=== PATIENT | male | born 1980 | race Caucasian/White ===

== ENCOUNTER → 2019-05-08 08:43 | Outpatient (CLI) | payer BC, SELFPAY ==
[2017-07-01 04:05] VITALS: BMI 25.0
[2019-05-08 10:11] LABS: Hematocrit 42.7 % (40-54); Hemoglobin 14.2 g/dL (13.0-16.5); Mean Corp Hgb Conc 33.3 g/dL (32-36); Mean Corpuscular Hgb 30.7 pg (27.0-32.0); Mean Corpuscular Volume 92.4 fL (80-94); Mean Platelet Vol. 11.4 fl (6.2-12.0); Platelet Count 241 K/mm3 (150-450); RBC Distribution Width CV 12.4 % (11.6-14.6); RBC Distribution Width SD 41.9 fl (35.1-43.9); Red Blood Count 4.62 M/mm3 (4.6-6.2); White Blood Count 4.5 K/mm3 (4.4-11.0)
[2019-05-08 10:34] LABS: ALB/GLOB Ratio 1.2 RATIO (0.9-2.4); AST(SGOT) 13 U/L (15-37); Alanine Aminotransfer ALT/SGPT 28 U/L (16-61); Albumin, Serum 3.9 g/dL (3.2-5.0); Alkaline Phosphatase 68 U/L (45-117); Anion Gap 8 (5-15); BUN 19 mg/dL (7-18); BUN/Creat Ratio 19.3 RATIO (10-20); Calcium,Total 9.4 mg/dL (8.5-10.1); Chloride 103 mmol/L (98-107); Creatinine, Serum 0.98 mg/dL (0.70-1.30); EST Glomerular Filtration Rate 90 mL/min (>60); Est Glom Filt Rate - Afr Amer 108 mL/min (>60); Globulin 3.3 g/dL (2.2-4.2); Glucose 308 mg/dL (74-106); Potassium 4.1 mmol/L (3.5-5.1); Protein, Total 7.2 g/dL (6.4-8.2); Sodium Level 140 mmol/L (136-145); Thyroid Stim Hormone (TSH) 2.05 uIU/mL (0.358-3.74)
== END ==
PROVIDERS: Family Provider Nurse Practitioner; PCP Nurse Practitioner
DX: R19.4 Change in bowel habit (principal)
CPT/HCPCS: 36415; 80053; 84443; 85027

== ENCOUNTER → 2020-02-12 | Outpatient (CLI) | payer BC, SELFPAY ==
--- NOTE | 2020-02-12 08:47 | BI_ITS ---
MAMMOGRAPHY - BILATERAL DIAGNOSTIC REASON FOR EXAM: Male, 39 years old. Painful retroareolar lump in the left breast. PERTINENT HISTORY: Non-contributory. TECHNIQUE: Digital bilateral breast emily (3D mammographic acquisition) in the CC and MLO projections. 2-D mediolateral oblique (MLO) and craniocaudad (CC) views of both breasts were obtained. CAD: Full Field Digital Mammography with Computer Added Detection was performed. COMPARISON: None. Baseline examination. FINDINGS: Breast Composition: Small amount of fibroglandular tissue is seen in the retroareolar region slightly more prominent on the left side. There are no dominant masses or suspicious calcifications. No other significant abnormalities are identified. BI/DIAG MAMM W/CAD, BILAT IMPRESSION: Negative diagnostic mammogram. With the patient''s history of the left painful breast lump, correlation with ultrasound of the retroareolar region is recommended. ASSESSMENT CATEGORY: BIRADS Category 0: Incomplete. Need additional imaging evaluation. A letter regarding these results will be sent to the patient by the facility within 30 days. Approximately 10% of breast cancers are not detected by mammography. A normal mammogram should not delay biopsy of a clinically suspicious abnormality. Electronically Signed: Kenn Leija, at 10:05 EDT , Service support ,
--- NOTE | 2020-02-12 08:47 | US_ITS ---
STUDY: ULTRASOUND BREAST - LEFT REASON FOR EXAM: Male, 39 years old. Palpable lump left breast. TECHNIQUE: Axial and longitudinal images of the LEFT breast were performed with a high resolution ultrasound transducer. # OF IMAGES: 26 COMPARISON: Comparison is made with prior mammogram done earlier in the day. FINDINGS: LEFT Breast: There is evidence of a 9 mm x 12 mm x 6 mm hypoechoic slightly irregular nodular density in the retroareolar region of the left breast. A biopsy is recommended for further evaluation. US/Breast Limited Unilateral IMPRESSION: 9 mm x 12 mm x 6 mm hypoechoic slightly irregular nodule in the retroareolar region of the left breast. Correlation with biopsy is recommended. ASSESSMENT CATEGORY: BIRADS Category 4: Suspicious - Biopsy Should Be Considered. A letter regarding these results will be sent to the patient by the facility within 30 days. Electronically Signed: Kenn Leija, at 10:43 EDT , Service support ,
== END | disposition home or self-care (01) ==
LOC: OPBI 08:44
PROVIDERS: PCP Nurse Practitioner; Referring Provider Internal Medicine; Visit Provider Internal Medicine
DX: N63.20 Unspecified lump in the left breast, unspecified quadrant (principal)
CPT/HCPCS: 76642; 77062; 77066; G0279

== ENCOUNTER → 2020-02-19 | Outpatient (CLI) | payer BC, SELFPAY ==
[2020-02-19 12:26] VITALS: BMI 25.0
--- NOTE | 2020-02-19 12:30 | BRBX_PTH ---
PATIENT: OMAR NAVA LOC: [facility] U#:[id number] AGE/SX: 39/M ROOM: RE02/19/[address]: Dr. Damaso Ward MD : 1980 BED: DIS: 02/19/2020 SPEC #: [id number] RECD: 02/19/20 13:48 STATUS: JASSON LM #: [id number] MICHELE: 02/19/20 12:[address]: Damaso Ward DEPT: SURGICAL PATHOLOGY RECD BY: Maria G Tenorio ENTERED: 02/22/20 09:01 SP TYPE: BREAST BX OTHR DR: HARJIT Plaza Tissues: Left breast, NOS Procedures: Surgery Specimen Level IV HEADER OPERATION: Left breast biopsy PRE-OP DIAGNOSIS: Abnormal left breast ultrasound TISSUE SUBMITTED: Left breast tissue MICROSCOPIC DIAGNOSIS Left breast, core biopsy: Consistent with gynecomastia. AM:skylar 02/23/20 MICROSCOPIC DESCRIPTION Slides are reviewed. GROSS DESCRIPTION Received in fixative is one container labeled with the patient name and designated left breast. The specimen consists of multiple elongated fragments of ash-yellow fibroadipose tissue that in aggregate measure 2 x 0.2 x 0.1 cm. The entire specimen is submitted in one cassette. / SJ:rg 02/22/20 TC:5 CPT: 71754
== END | disposition home or self-care (01) ==
LOC: LABSPEC 14:00
PROVIDERS: PCP Nurse Practitioner; Referring Provider Surgery; Visit Provider Surgery
DX: R92.8 Other abnormal and inconclusive findings on diagnostic imaging of breast (principal)
CPT/HCPCS: 88305

== ENCOUNTER 2020-04-29 13:37 | Emergency (ER) | payer BC, SELFPAY ==
[2020-02-19 12:26] VITALS: BMI 25.0
[2020-04-29 13:38] VITALS: BP 108/67; PULSE 59; RESP 18; TEMP 37; O2SAT 100; BMI 24.4
--- NOTE | 2020-04-29 14:00 | EKG12_ITS ---
Test Reason : Blood Pressure : / mmHG Vent. Rate : 058 BPM Atrial Rate : 058 BPM P-R Int : 156 ms QRS Dur : 098 ms QT Int : 408 ms P-R-T Axes : 047 055 051 degrees QTc Int : 400 ms Sinus bradycardia with sinus arrhythmia Otherwise normal ECG Confirmed by SALUD PERRY, CORRINE ([id number]), metropolitan editor LAURA FROST ([id number]) on 05/03/2020 9:20:54 AM Referred By: STEPHANIE Confirmed By:CORRINE BRANNON MD
--- NOTE | 2020-04-29 14:01 | CT_ITS ---
STUDY: CT BRAIN WITHOUT CONTRAST REASON FOR EXAM: Male, 39 years old. HEADACHE with rt eye blurred vision. Elevated blood sugar. Type 1 diabetic RADIATION DOSAGE (If Supplied By Facility): CTDIvol = ( 60.81 ) mGy, DLP = ( 1067.08 ) mGycm TECHNIQUE: Transaxial CT imaging of the brain was performed without administration of intravenous contrast material. Individualized dose optimization techniques were used for this CT. COMPARISON: No relevant priors. FINDINGS: Normal soft tissue structures. Normal calvarium. Normal size ventricles and extra-axial spaces for the patient''s age. Normal white matter tracts of the cerebral hemispheres. Normal basal ganglia and thalami. Normal brainstem. Normal cerebellum. There is no intracranial hemorrhage. There are no findings of an acute ischemic infarction. Normal visualized paranasal sinuses. CT/Brain/Head without Contrast IMPRESSION: Normal unenhanced CT scan of the brain. Electronically Signed: Kenn Leija, at 14:36 EDT , Service support ,
--- NOTE | 2020-04-29 14:11 | NURSING ---
NO OLD EKGS
--- NOTE | 2020-04-29 14:17 | ED.VIS.GEN ---
History of Present Illness Chief Complaint: Eye Problem Informant: Patient Narrative: Patient is a 39-year-old male who presents to the emerge department for right eye blurred vision and right-sided headache. This been present over the past 2 days. He states it feels like his vision is bouncing. Left eye does not seem affected. He has had similar episode before in the past. He is concerned that his diabetes is messing with his vision. He denies any recent headaches but does have a very distant history of migraines before in the past. Denies any neck stiffness or pain. He has not had any fevers or chills. Denies any loss of vision. Bright lights do make his symptoms worse. Currently states his pain is around a 5 out of 10. It does occasionally get up to an 8 out of 10. He has been nauseous and had a few episodes of dry heaving. He woke up this morning and his blood sugar was in the 400s but states they have been well controlled lately. He has been in DKA before in the past and does not feel like he is in this now. Denies any abdominal pain. No change in bowel habits. No urinary symptoms. He denies any history of stroke. Not on any anticoagulation. No history of head trauma. No painful eye movements. No foreign body sensation in the eye. Eye has not been red or having any discharge. Past Medical History - Allergies and Home Meds Allergies/Adverse Reactions: Allergies No Known Allergies Allergy (Verified 04/29/20 13:40) Primary Care Physician: Kanu Jamil MD [STAFF PHYSICIAN] - As soon as possible Vianca Olvera NP-C [Primary Care Provider] - 1 Day for another exam Prior records reviewed: Yes Past Medical History: - - Diabetes Surgical History: noncontributory Smoking Status: Former smoker Alcohol: None Drugs: None Review of Systems General: Denies: Chills, Fever, Sweats Eyes: Reports: Blurred vision - right. Denies: Visual changes - left, Blurred vision - left ENT: Denies: Bilateral ear pain, Rhinorrhea, Sore throat Cardiovascular: Denies: Chest pain, Palpitations, Heart racing Respiratory: Denies: Dyspnea, Cough, Dyspnea on exertion Gastrointestinal: Reports: Nausea. Denies: Abdominal pain, Vomiting, Diarrhea Genitourinary: Denies: Dysuria, Hematuria, Frequency Musculoskeletal: Denies: Back pain, Extremity Pain Skin: Denies: Rash, Wounds Neurological: Reports: Headache. Denies: Weakness, Parasthesia, Numbness Physical Exam Vital Signs/Narrative: Vital Signs Temp Pulse Resp BP Pulse Ox 04/29/20 13:38 98.6 F 59 L 18 108/67 100 Inital Vital Signs reviewed: Yes General: Well nourished, Well developed, No Acute Distress Head: Normocephalic, Atraumatic Eyes: Perrl, EOMI, - - Eyes not injected. No painful eye movements with full range of motion. No discharge present. No surrounding cellulitis. ENT: Moist mucous membranes, No rhinorrhea Neck: Supple, Nontender Cardiovascular: Regular rate, Regular rhythm, No murmurs Respiratory: No distress, CTA bilaterally, Chest nontender Abdomen: Soft, Nontender, Nondistended, Normal bowel sounds Back: Nontender, Normal Inspection Extremities: Nontender, No edema Skin: Normal color, No rash Neurological: Alert, Oriented x3, Cranial nerves II-XII grossly intact, Normal Strength, Normal Sensation. Negative for: Left side facial droop, Right side facial droop Psychological: Normal affect, Normal Mood Diagnostic/Tx/Re-eval - Medical Decision Making Patient presents the emerge department for right eye blurred vision and right-sided headache. Will check basic lab work as he said his blood sugar has been elevated this morning. Will do CT scan of the head to evaluate for any evidence of bleed. Will treat with Toradol, Reglan and Benadryl in case this is a migraine. Visual acuity is 20/20 in bilateral eyes. Patient's lab work-up showed a mild hyperglycemia. Otherwise no significant abnormality. CT scan of the head did not show any acute intracranial findings. After migraine cocktail. Patient states he is feeling much better. He does feel comfortable going home at this time. I do recommend he follow-up with his PCP as well as an clinical appeals specialist. We will make a referral for 1. If he develops any worsening symptoms or any vision changes he is to return to the emergency department immediately. He understands and is agreeable with this plan. ED Disposition - Plan for ED Patient: Disposition: Home or Assisted Living Diagnosis: Headache, Blurred vision Instructions: Migraines and Cluster Headaches, ED Blurred Vision Referrals: Ciesa,Vianca, [employer] [employer] [Primary Care Provider] - 1 Day for another exam Kanu Jamil MD [STAFF PHYSICIAN] - As soon as possible
[2020-04-29 14:23] LABS: Absolute Lymphocyte Count 1.27 X10^3/uL (0.83-4.51); Absolute Neutrophil Count 4.7 X10^3/uL (2.0-7.7); Basophil# 0.03 X10^3/uL; Basophil% 0.5 % (0-1); Eosinophil# 0.05 X10^3/uL; Eosinophils% 0.8 % (0-5); Hematocrit 43.6 % (40-54); Hemoglobin 14.7 g/dL (13.0-16.5); Lymphocyte # 1.27 X10^3/ul (4.0); Lymphocyte % 19.6 % (19-41); Mean Corp Hgb Conc 33.7 g/dL (32-36); Mean Corpuscular Hgb 31.3 pg (27.0-32.0); Mean Corpuscular Volume 92.8 fL (80-94); Mean Platelet Vol. 11.5 fl (6.2-12.0); Monocyte# 0.42 X10^3/uL; Monocyte% 6.5 % (0-10); NRBC Flagged by Analyzer 0 % (0-5); Neutrophil % 72.3 % (47-70); Platelet Count 243 K/mm3 (150-450); RBC Distribution Width CV 11.8 % (11.6-14.6); RBC Distribution Width SD 40.6 fl (35.1-43.9); White Blood Count 6.5 K/mm3 (4.4-11.0)
[2020-04-29 14:38] LABS: Anion Gap 7 (5-15); BUN 16 mg/dL (7-18); BUN/Creat Ratio 17.7 RATIO (10-20); Calcium,Total 9.5 mg/dL (8.5-10.1); Chloride 106 mmol/L (98-107); EST Glomerular Filtration Rate 98 mL/min (>60); Est Glom Filt Rate - Afr Amer 119 mL/min (>60); Estimated Creatinine Clearance 118.56 ml/min; Glucose 209 mg/dL (74-106); Potassium 3.6 mmol/L (3.5-5.1); Sodium Level 140 mmol/L (136-145)
[2020-04-29] MEDS: 0.9% Normal Saline 1,000 ML 999 ML IV (14:38)
[2020-04-29] MEDS: Ketorolac 30 MG/ML Syringe IV (15:07)
[2020-04-29] MEDS: Metoclopramide 10 MG/2 ML Vial 5 MG IV (15:08)
[2020-04-29] MEDS: DiphenhydrAMINE 50 MG/ML Syringe 25 MG IV (15:08)
[2020-04-29 16:45] VITALS: BP 108/66; PULSE 77; RESP 14
== END 2020-04-29 16:46 | disposition home or self-care (01) ==
PROVIDERS: Emergency Provider Emergency Medicine; PCP Nurse Practitioner
DX: G43.909 Migraine, unspecified, not intractable, without status migrainosus (principal); H53.8 Other visual disturbances; E11.9 Type 2 diabetes mellitus without complications; Z87.891 Personal history of nicotine dependence; Z79.4 Long term (current) use of insulin
CPT/HCPCS: 70450; 80048; 84484; 85025; 93005; 96361; 96374; 96375; 99284; J7030; A4216

== ENCOUNTER 2020-05-01 20:40 | Emergency (ER) | payer BC, SELFPAY ==
[2020-05-01 20:41] VITALS: BP 129/90; PULSE 75; RESP 15; TEMP 37.2; O2SAT 99; BMI 23.0
--- NOTE | 2020-05-01 21:28 | ED.DCSUM_ITS ---
History of Present Illness Chief Complaint: Nausea/Vomiting Informant: Patient Onset: Yesterday Context: Gradual Timing: Continuous Quality: Similar Prior Headaches Location: right frontal-retroorbital Current Severity: Moderate Maximum Severity: Moderate Worsened by: opening R eye Relieved by: nothing Associated Symptoms: Nausea, Vomiting, Photophobia, - - diplopia when opening R eye Injury: - - no trauma/injury/fall Narrative: Patient presents saying I have a diabetic complication of my right eye. He states he was told this by a specialist one time when he had this before. In the past when he had the symptoms, his blood sugar was very high. He states his eye symptoms started 4-5 days ago, and has resolved, he said to himself I need to pay attention to my blood sugars which he states he admittedly was not doing prior to that for some time, he is a type I diabetic. The day after that, the headache started. He has had some vomiting. He was seen here in the ER and had a work-up including a CT of the head that was negative. He states as a result of treatment, his headache resolved for the day, and he came back yesterday. Last night and all day today, he has been vomiting to the point of feeling dehydrated. He states he has no eye pain proper, but he has headache that feels like it is in his eye socket behind his eye. He has some photophobia. He denies any neurologic symptoms in his periphery, or problems walking but when his right eyes open he is dizzy/vertiginous, which keeps making him feel worse. Therefore, he has been keeping his right eye closed purposefully because it makes him less symptomatic but he has still been vomiting all day and states my parents would give me anything to drink because they think I have coronavirus so he states he came here mainly because of the vomiting, and wanting to try to get it to quit. He states he has an appointment with an eye doctor concerning his right eye. Again, he states this is happened in the past, it resolves spontaneously when his sugar gets under control, he states it has been in the 1- 200s range lately since he has been checking it. When asked if he had an MRI ever, he states he did remotely and cannot remember when or under what context. There is no record of one here. - Past Medical History (1) DM (diabetes mellitus) Status: Chronic Comment: type 1 (2) Peptic ulcer Status: Chronic Past Medical History - Allergies and Home Meds Allergies/Adverse Reactions: Allergies No Known Allergies Allergy (Verified 05/01/20 20:43) Primary Care Physician: Fabiano Hammond MD [STAFF PHYSICIAN] - As soon as possible (call for appt) Surgical History: noncontributory Lives: With Family Smoking Status: Never smoker Review of Systems General: Denies: Chills, Fever, Sweats Eyes: Reports: Diplopia, - - Photophobia. Right retro-orbital headache.. Denies: Visual changes - bilaterally ENT: Denies: Bilateral ear pain, Rhinorrhea, Sore throat Cardiovascular: Denies: Chest pain, Palpitations Respiratory: Denies: Dyspnea, Cough, Sputum, Dyspnea on exertion, Orthopnea Gastrointestinal: Reports: Nausea, Vomiting. Denies: Abdominal pain, Diarrhea, Melena, Hematochezia Genitourinary: Denies: Dysuria, Hematuria, Frequency Musculoskeletal: Denies: Myalgias, Arthralgias, Neck pain, Back pain, Swelling, Extremity Pain Skin: Denies: Rash, Wounds Neurological: Reports: Headache. Denies: Weakness, Numbness Physical Exam Vital Signs/Narrative: Vital Signs Temp Pulse Resp BP Pulse Ox 05/01/20 20:41 98.9 F 75 15 129/90 H 99 Inital Vital Signs reviewed: Yes General: Well nourished, Well developed, - - Well-appearing, no acute distress. Patient has conversation with his hands behind his head. Head: NC, AT Eyes: Perrl, EOMI - But when looking straight, patient appears to have a disconjugate gaze with the abnormal eye appearing to be the right one., - - Normal conjunctivae. No pain with extraocular movements. No endophthalmos, proptosis, or ptosis. No periorbital swelling or cellulitis. ENT: Moist mucous membranes, No rhinorrhea, TM's clear Neck: Supple, No Lymphadenopathy, Nontender, No Meningismus Cardiovascular: Regular rate, Regular rhythm, No murmurs Respiratory: No distress, CTA bilaterally, Chest nontender Abdomen: Soft, Nontender, Nondistended, Normal bowel sounds Back: Nontender, Normal Inspection Extremities: Nontender, No edema Skin: Normal color, No rash Neuro: Alert, Oriented x3, Cranial nerves II-XII grossly intact, Normal Strength, Normal Sensation, Normal DTR, Normal Gait, - - Normal [id number] and [id number] bilaterally. Psychological: Normal affect, Normal Mood Diagnostic/Tx/Re-eval Laboratory Results 05/01/20 21:41 POC Glucose 254 H - Medical Decision Making Blood sugar in the mid 200s, he was treated with IV fluids, Reglan. On reevaluation his headache and nausea are much better and he is tolerating oral fluids and is asking to leave. I reviewed his work-up from 2 days ago, he had a negative head CT and other than mild hyperglycemia his metabolic work-up was unremarkable. He still has a disconjugate gaze and states he DOES NOT usually have a lazy eye. I discussed concern with him for possible neurologic component here rather than ophthalmologic. He expressed concern as well, but does not want to stay anymore. I wanted to obtain a stat neurology consult regarding this for further evaluation. He does not want to stay for that. I gave him the option of following up with neurology as an outpatient, and he does want to do that, and will keep his appointment with ophthalmology which I think is also reasonable. His visual acuity is fine now. Given a prescription for Phenergan tablets to use as needed at home in the meantime. ED Disposition - Plan for ED Patient: Disposition: Home or Assisted Living Diagnosis: Hyperglycemia due to type 1 diabetes mellitus, Dysconjugate gaze, Migraine headache, Vomiting Instructions: ED Diabetic Hyperglycemia, ED, Migraine (Classical) Prescriptions: proMETHazine tablet [Phenergan tablet] 25 mg PO Q6H PRN PRN #12 tab PRN Reason: Nausea/Vomiting Prescription Printed Referrals: Fabiano Hammond MD [STAFF PHYSICIAN] - As soon as possible (call for appt)
[2020-05-01] MEDS: 0.9% Normal Saline 1,000 ML 999 ML IV (21:43)
[2020-05-01] MEDS: Metoclopramide 10 MG/2 ML Vial IV (21:44)
[2020-05-01 22:01] LABS: Bedside Glucose 254 mg/dL (70-110)
[2020-05-01 23:05] VITALS: BP 107/66; PULSE 83; RESP 16; O2SAT 97
== END 2020-05-01 23:06 | disposition home or self-care (01) ==
PROVIDERS: Emergency Provider Emergency Medicine; PCP Nurse Practitioner
DX: G43.909 Migraine, unspecified, not intractable, without status migrainosus (principal); H53.001 Unspecified amblyopia, right eye; E10.65 Type 1 diabetes mellitus with hyperglycemia
CPT/HCPCS: 82962; 96361; 96374; 99285; J7030; A4216

== ENCOUNTER 2020-05-02 08:57 | Inpatient (IN) | payer BC, SELFPAY ==
[2020-05-01 20:41] VITALS: BMI 23.0
[2020-05-02] VITALS (17 sets, daily range): BP systolic 86–136; BP diastolic 59–83; PULSE 79–109; RESP 15–23; TEMP 36.4–37.2; O2SAT 98–100; BMI 24.4; BMI 21.9
--- NOTE | 2020-05-02 09:08 | CT_ITS ---
STUDY: CTA HEAD AND NECK WITH CONTRAST REASON FOR EXAM: Male, 39 years old. PT STATED N/V, RT EYE DROOP, UNABLE TO TRACK LEFT OF MIDLINE PER ORDERING PHYSI RADIATION DOSAGE (If Supplied By Facility): CTDIvol = ( 28.03 ) mGy, DLP = ( 1536.32 ) mGycm TECHNIQUE: CT angiography was performed with a multi-detector CT scanner. Data acquisition was obtained from the skull base through the vertex following intravenous administration of 100ML ISOVUE 370. MIP images were reconstructed from the axial data set. Post-processing of the angiographic images was performed, with multiplanar reformation and 3D reconstruction. Individualized dose optimization techniques were used for this CT. COMPARISON: No relevant priors. FINDINGS: Normal bilateral petrous carotid arteries. Normal right cavernous carotid artery with a normal supraclinoid bifurcation. Normal left cavernous carotid artery with a normal supraclinoid bifurcation. Normal right A1 segments of the anterior cerebral artery. Normal left A1 segments of the anterior cerebral artery. Normal intact anterior communicating artery (ACOM). Normal bilateral A2 segments of the anterior cerebral arteries. Normal right M1 and M2 segments of the middle cerebral arteries, with a normal M1 bifurcation. Normal left M1 and M2 segments of the middle cerebral arteries, with a normal M1 bifurcation. Normal right posterior communicating artery (PCOM). Normal left posterior communicating artery (PCOM). Normal bilateral vertebral arteries. Normal basilar artery with a normal basilar bifurcation. The visualized bilateral superior cerebellar (SCA) arteries are normal. Normal bilateral P1, P2 and visualized P3 segments of the posterior cerebral arteries. There is no demonstrated aneurysm of the [place]. There is no demonstrated abnormality of the visualized brain. AORTIC ARCH: Normal visualized aortic arch. Normal origins of the brachiocephalic, left common carotid, and left subclavian arteries. RIGHT CAROTID ARTERIES: Normal right common carotid artery (CCA). Normal right common carotid bulb. Normal origin of the right internal carotid (ICA) artery without a hemodynamically significant stenosis. Normal visualized cervical portion of the right internal carotid artery. Normal origin of the right external carotid artery (ECA). LEFT CAROTID ARTERIES: Normal left common carotid artery (CCA). Normal left common carotid bulb. Normal origin of the left internal carotid (ICA) artery without a hemodynamically significant stenosis. Normal visualized cervical portion of the left internal carotid artery. Normal origin of the left external carotid artery (ECA). VERTEBRAL ARTERIES: Normal bilateral vertebral arteries. CT/CTA Head AND Neck W/ Contrast IMPRESSION: Normal CTA Head and neck with contrast. Electronically Signed: Pop Boyle MD at 9:53 EDT , Service support ,
--- NOTE | 2020-05-02 09:08 | EKG12_ITS ---
Test Reason : NAUSEA Blood Pressure : / mmHG Vent. Rate : 092 BPM Atrial Rate : 092 BPM P-R Int : 152 ms QRS Dur : 078 ms QT Int : 368 ms P-R-T Axes : 074 062 062 degrees QTc Int : 455 ms Normal sinus rhythm Normal ECG Confirmed by SALUD PERRY, CORRINE ([id number]), department editor LAURA FROST ([id number]) on 05/04/2020 9:07:26 AM Referred By: RAHEEL Confirmed By:CORRINE BRANNON MD
--- NOTE | 2020-05-02 09:11 | ED.DCSUM_ITS ---
History of Present Illness Chief Complaint: Nausea/Vomiting Informant: Patient Onset: Days Context: Gradual Onset Timing: Continuous Current Severity: Moderate Maximum Severity: Moderate Narrative: The patient is a 39-year-old male with history of insulin-dependent diabetes that presents with nausea and vomiting. The patient was initially seen here about 3 days ago. At that point, he had blurry vision. He underwent noncontrast head CT which was negative. He came back again last night because he was having headache with nausea and vomiting. Patient was given migraine abortive medications. He was found to have disconjugate gaze. They did want to bring the patient in for admission, but he states that he would rather follow-up as an outpatient. He states when he got home, he felt that he was having a reaction to the medication. He states that he felt very restless and anxious. He had multiple further episodes of vomiting. He states he feels like his vision is now worse. He denies any head trauma. He denies any focal weakness. Prior similar symptoms: Yes Recent Illness/Hospitalization: No Past Medical History - Allergies and Home Meds Allergies/Adverse Reactions: Allergies No Known Allergies Allergy (Verified 05/02/20 09:02) Prior records reviewed: Yes Past Medical History: - - Insulin-dependent diabetes Surgical History: noncontributory Smoking Status: Never smoker - Family History Maternal Family History: Family History (Last Updated 02/19/20 @ 12:24 by Amisha Gupta) Father Cancer Family History: Reports: No pertinent history Paternal Family History: Family History (Last Updated 02/19/20 @ 12:24 by Amisha Gupta) Father Cancer Family History: Reports: Heart Disease Review of Systems General: Denies: Chills, Fever, Sweats Eyes: Reports: Blurred vision - right, Diplopia. Denies: Visual changes - bilaterally ENT: Denies: Rhinorrhea, Sore throat Cardiovascular: Denies: Chest pain, Palpitations Respiratory: Denies: Dyspnea, Cough, Dyspnea on exertion Gastrointestinal: Reports: Nausea, Vomiting. Denies: Abdominal pain, Diarrhea, Melena, Hematochezia Genitourinary: Denies: Dysuria, Hematuria, Frequency Musculoskeletal: Denies: Back pain, Extremity Pain Skin: Denies: Rash, Wounds Neurological: Reports: Headache. Denies: Weakness, Numbness Physical Exam Vital Signs/Narrative: Vital Signs Temp Pulse Resp BP Pulse Ox 05/02/20 08:59 97.6 F L 102 H 18 129/74 H 98 Inital Vital Signs reviewed: Yes General: Well nourished, Well developed, No Acute Distress Head: Normocephalic, Atraumatic Eyes: Perrl, - - The right eye does have ptosis. It will also not fully cross the midline. He does complain of double vision. ENT: Moist mucous membranes, No rhinorrhea Neck: Supple, Nontender Cardiovascular: Regular rate, Regular rhythm, No murmurs Respiratory: No distress, CTA bilaterally, Chest nontender Abdomen: Soft, Nontender, Nondistended, Normal bowel sounds Back: Nontender, Normal Inspection Extremities: Nontender, No edema Skin: Normal color, No rash Neurological: Alert, Oriented x3, Cranial nerves II-XII grossly intact, Normal Strength, Normal Sensation Psychological: Normal affect, Normal Mood Diagnostic/Tx/Re-eval Clinical Impression(s) from Imaging Studies Head/Neck CTA 05/02/20 09:08 IMPRESSION: Normal CTA Head and neck with contrast. Electronically Signed: Pop Boyle MD at 9:53 EDT , Service support , - Medical Decision Making The patient has ptosis of the right eye. He is unable to completely abduct the right eye. He is also complaining of nausea and vomiting. I had concern for Tika syndrome versus posterior stroke. The patient underwent CTA of the head and neck. There is no evidence of dissection or acute occlusion. As the patient has had worsening symptoms since his initial vision on the , I do feel that admission for MRI would be appropriate as he has obvious neuro findings. The patient was discussed with the hospitalist. Lab work returned. The patient does appear to be in DKA. He has a decreased bicarb, elevated anion gap, and hyperglycemia. He will be started on insulin dr ip and admitted to the ICU. Impression 1. Nausea and vomiting 2. Right eye ptosis 2. DKA ED Disposition - Plan for ED Patient:
[2020-05-02] MEDS: Ondansetron 4 MG/2 ML Vial IV ×2 (09:18→17:03)
[2020-05-02] MEDS: 0.9% Normal Saline 1,000 ML 1000 ML IV (09:18)
--- NOTE | 2020-05-02 10:19 | ED.RN ---
PT WAS BROUGHT INTO THE ER ROOM AFTER BEING TRIAGED WITH FATHER ALONG SIDE. PT AMBULATED TO THE BED. FATHER WAS INFORMED THAT HE COULD HAVE A SEAT IN THE CHAIR AND THE DR/NURSE WOULD BE IN. FATHER REQUESTED A HIPPA FORM. I INFORMED HIM THE PT WOULD RECEIVE THAT WITH HIS REGISTRATION AND THAT WAS DONE UPON EVERY VISIT. FATHER THEN ASKED WHEN THAT WOULD HAPPEN. EXPLAINED IT HAPPENS AFTER THE DR SEES THE PT. FATHER STATED HE WAS SUPPOSED TO GET IT NOW SO HIM AND HIS COULD HAVE ACCESS TO HIS SONS INFORMATION. I ATTEMPTED TO SAY THAT HIS SON COULD GIVE VERBAL CONSENT BUT THE FATHER QUICKLY IN INTERRUPTED AND STATED HE NEEDED THE HIPPA FORM AND PHYSICALLY STEPPED MULTIPLE STEPS TOWARDS ME. MAN WAS ASKED TO STEP BACK AND NOT COME AT ME. AGAIN TRIED TO EXPLAIN THE CONSENT PROCESS BUT HE REMAIN ANGRY AND VERBALLY ARGUING. PT STATED HE COULD BE EJECTED IF NEED BE. I EXPLAIN IF HE CONTINUED TO BE AGGRESSIVE THAN HE WOULD NEED TO LEAVE BUT IF HE COULD HAVE A CONVERSATION HE COULD STAY. HE REFUSED TO CALM DOWN AND CONTINUED TO ARGUE AND HAVE A RAISED VOICE. FATHER WAS THEN TOLD HE COULD LEAVE. SECURITY WAS CALLED AND FATHER AMBULATED FROM ED. PATIENT ADVOCATE AND WEED CUTTER ALSO NOTIFIED OF SITUATION.
[2020-05-02 10:33] LABS: Absolute Lymphocyte Count 0.57 X10^3/uL (0.83-4.51); Absolute Neutrophil Count 21.2 X10^3/uL (2.0-7.7); Basophil# 0.04 X10^3/uL; Basophil% 0.2 % (0-1); Hematocrit 43.6 % (40-54); Hemoglobin 14.5 g/dL (13.0-16.5); Lymphocyte # 0.57 X10^3/ul (4.0); Lymphocyte % 2.4 % (19-41); Mean Corp Hgb Conc 33.3 g/dL (32-36); Mean Corpuscular Hgb 31.7 pg (27.0-32.0); Mean Corpuscular Volume 95.4 fL (80-94); Mean Platelet Vol. 11.6 fl (6.2-12.0); Monocyte# 1.48 X10^3/uL; Monocyte% 6.3 % (0-10); NRBC Flagged by Analyzer 0 % (0-5); Neutrophil # 21.24 X10^3/uL (2.7-7.7); Neutrophil % 90.5 % (47-70); POSITIVE DIFFERENTIAL YES; POSITIVE MORPHOLOGY YES; Platelet Count 324 K/mm3 (150-450); RBC Distribution Width CV 11.8 % (11.6-14.6); RBC Distribution Width SD 40.8 fl (35.1-43.9); Red Blood Count 4.57 M/mm3 (4.6-6.2); White Blood Count 23.5 K/mm3 (4.4-11.0)
--- NOTE | 2020-05-02 10:34 | ED.RN ---
FRIEND OF PT'S MOTHER CALLED INQUIRING ABOUT HOW TO OBTAIN CONSENT TO BE NOTIFIED OF PT'S INFORMATION. EXPLAINED THE VERBAL CONSENT PROCESS AND HOW CONSENT OF INFO RELEASE FORM WORKED. IT WAS DECIDED THAT THE VERBAL CONSENT WAS APPROPRIATE FOR THIS SITUATION. MOTHER WAS AGREEABLE TO THIS. AFTER THIS PHONE CALL ENDED THE PATIENT ADVOCATE APPROACHED THE NURSES STATION AND INFORMED THAT HE WAS WORKING WITH THE FATHER STILL AND DID OBTAIN VERBAL CONSENT FROM THE SON.
[2020-05-02 10:41] LABS: Differential Indicated SCAN CRITERIA MET
--- NOTE | 2020-05-02 10:46 | HP.PCM_ITS ---
Problem List (1) DM (diabetes mellitus) Status: Chronic Comment: type 1 (2) Peptic ulcer Status: Chronic History of Present Illness Date of Admission: 05/02/20 Chief Complaint: Nausea, vomiting, headache, blurred vision. The patient is a 39 year old M with past medical history as mentioned above presented to the emergency room because of nausea, vomiting, headache and blurred vision. Patient symptoms started 3 days ago with nausea and vomiting, has been intermittent for the last 3 days, associated with headache as well as blurred vision on the right side. He mentioned that all of the symptoms came and most at the same time. He has been having this blurred vision since Saturday, it is on looking by the right eye, distorted picture, no diplopia, associated with headache and without aggravating or relieving factors. The headache is on the right parietal region, dull aching headache, sometimes throbbing and associated with nausea and vomiting and without aggravating or relieving factors. Patient came to the emergency department on April 29, 2020. He had CT scan brain done without contrast and showed no acute findings. Routine blood work was unremarkable. He was discharged home. He came back last night because of persistent nausea and vomiting as well as headache and blurred vision. He was found to have disconjugate gaze and treated as a case of migraine headache and he was discharged home. This morning, patient came back because of nausea and vomiting again as well as headache and blurry vision on the right eye. In the emergency department, he was afebrile, heart rate has been around 100, blood pressure stable, pulse ox is 98% on room air. His routine blood work was remarkable for significant leukocytosis, potassium 5.5, BUN of 22 and creatinine of 1.21. Blood glucose was 429. Serum bicarb was 12 and anion gap was 21. Lactic acid was 3.8. LFT was unremarkable. His EKG revealed normal sinus rhythm, normal [place] interval, normal QRS, normal QTC, no acute segment changes. CTA of the head and neck done today and showed no evidence of hemodynamically significant vascular disease or stenosis. CT scan brain that was done on April 29, 2020 reviewed and showed no evidence of acute infarct or hemorrhage. Patient is being admitted for DKA, dehydration, hyperkalemia, lactic acidosis and headache/blurry vision on the right eye as well as disconjugate gaze on the right. Past Medical History Past Medical History (Chronic Problems): Chronic Problems (Last Updated 05/02/20 @ 10:[address] Abisai Montoya MD) Mass of left breast (Chronic) DM (diabetes mellitus) (Chronic) type 1 Peptic ulcer (Chronic) Medical History: Medical History (Last Updated 05/02/20 @ 10:[address] Abisai Montoya MD) Mass of left breast (Chronic) N63.20 Breast mass N63.0 Diabetes insipidus E23.2 Allergies No Known Allergies Allergy (Verified 05/02/20 09:02) Home Medications: Ambulatory Orders Medication Instructions Recorded Insulin Glargine [Lantus SoloStar 20 units SUBCUT DAILY 09/13/13 Pen] Insulin Lispro [Humalog] unit SQ TID 09/13/13 proMETHazine tablet [Phenergan 25 mg PO Q6H PRN PRN #12 tab 05/01/20 tablet] Surgical History: Surgical History (Last Updated 02/19/20 @ 12:24 by Amisha Gupta) History of colonoscopy Onset Date: ~05/2019 Z98.890 History of hernia repair Onset Date: ~2007 Z98.890, Z87.19 History of tonsillectomy Onset Date: ~1984 Z90.89 Surgical History: herniorrhaphy, tonsillectomy Psychiatric History: No pertinent psych hx Lives: With Family Smoking Status: Never smoker Alcohol: Occasional Drugs: None - *Family History Maternal Family History: Family History (Last Updated 02/19/20 @ 12:24 by Amisha Gupta) Father Cancer History Items: No pertinent history Paternal Family History: Family History (Last Updated 02/19/20 @ 12:24 by Amisha Gupta) Father Cancer History Items: Heart Disease Review of Systems Constitutional: Reports: Anorexia. Denies: Chills, Fever, Weakness Eyes: Reports: Blurred vision, Vision Change. Denies: Double vision, Drainage, Redness HEENT: Reports: Head Aches. Denies: Difficulty Hearing, Ear Pain, Eye Pain, Nasal Congestion, Sore Throat Cardiovascular: Denies: Chest Pain, Chest Pressure, Chest Tightness, Heaviness, Light Headedness, Palpitations, Syncope Respiratory: Denies: Cough, Pleuritic Pain, Shortness of Breath, Sputum production, Wheezing Gastrointestinal: Reports: Nausea, Vomiting. Denies: Abdominal Pain, Cons tipation, Diarrhea Genitourinary: Denies: Dysuria, Frequency, Hematuria Musculoskeletal: Denies: Arm Pain, Back Pain, Foot Pain Skin: Denies: Dryness, Rash Neurological: Reports: Blurred vision, Headaches. Denies: Balance problems, Double vision, Change in Speech, Slurred speech, Confusion, Incoordination, Numbness Psychiatric: Denies: Anxiety, Depression Endocrine: Denies: Change in Body Habitus, Polydipsia, Polyuria VTE Information - Inpt Only VTE Present on Admission: No VTE Mechan Device Prophylaxis: None VTE Pharm Prophylaxis ordered?: Yes Patient Problems: Active and Suspected Problems (Last Updated 05/02/20 @ 10:[address] Abisai Montoya MD) Lactic acidosis (Acute) Hyperkalemia (Acute) DKA (diabetic ketoacidoses) (Acute) - Physical Exam Vitals/I&O's: Vital Signs Temp Pulse Resp BP Pulse Ox 97.6 F L 102 H 18 129/74 H 98 05/02/20 08:59 05/02/20 08:59 05/02/20 08:59 05/02/20 08:59 05/02/20 08:59 Oxygen Delivery Method Room Air Weight: 180 lb Body Mass Index (BMI) 24.4 Finger Stick Blood Glucose 254 Intake and Output for Last 24 Hours 04/30/20 05/01/20 05/02/20 23:59 23:59 23:59 Intake Total 1000 / 1000 Balance 1000 / 1000 General: Alert, Oriented x3, Cooperative, No apparent distress HEENT: Atraumatic, PERRLA, Normocephalic, - - Right eyelid does not cross the midline looking to the left side. Oral: Moist Mucosa, No Gingival or Mucosal Lesions/ Ulcerations Neck: Supple, No JVD, Negative Carotid Bruits, No Nuchal Rigidity Lungs: Clear to auscultation, Normal air movement, No rhonchi, No wheeze, No rales Cardiovascular: Regular rate, Regular Rhythm, Normal S1, Normal S2, PMI Normal, Tachycardic Abdomen: Bowel Sounds Present, Soft, Non Tender, Non-Distended, No Hepato- splenomegaly Extremities: No clubbing, No cyanosis, No edema Skin: No rashes, No breakdown Lymphatic: No Cervical, Supraclavicular, or Inguinal Adenopathy Neurological: Motor Exam 5/5 strength throughout, - - Right eye ptosis, disconjugate gaze on the right eye. Psych/Mental Status: Normal Affect, Appropriate, Alert and oriented to time, place, person, mood and affect Laboratory Results 05/02/20 10:20: WBC 23.5 H, RBC 4.57 L, Hgb 14.5, Hct 43.6, MCV 95.4 H, MCH 31.7, MCHC 33.3, RDW Std Deviation 40.8, RDW Coeff of [place] 11.8, Plt Count 324, MPV 11.6, Immature Gran % (Auto) 0.600, Neut % (Auto) 90.5 H, Lymph % (Auto) 2.4 L, [place] % (Auto) 6.3, Eos % (Auto) 0.0, Baso % (Auto) 0.2, Absolute Neuts (auto) 21.2 H, Absolute Lymphs (auto) 0.57 L, Nucleated RBC % 0 05/02/20 10:20: PT Pending, INR Pending, APTT Pending 05/02/20 10:20: Sodium Pending, Potassium Pending, Chloride Pending, Carbon Dioxide Pending, Anion Gap Pending, BUN Pending, Creatinine Pending, Est GFR (MDRD) Af Amer Pending, Est GFR (MDRD) Non-Af Pending, BUN/Creatinine Ratio Pending, Glucose Pending, Calcium Pending, Total Bilirubin Pending, AST Pending, ALT Pending, Alkaline Phosphatase Pending, Total Protein Pending, Albumin Pend ing 05/02/20 10:20: Lactic Acid Pending Clinical Impression(s) from Imaging Studies Head/Neck CTA 05/02/20 09:08 IMPRESSION: Normal CTA Head and neck with contrast. Electronically Signed: Pop Boyle MD at 9:53 EDT , Service support , Assessment/Plan All Active Problems (Last Updated 05/02/20 @ 10:[address] Abisai Montoya MD) Lactic acidosis (Acute) Hyperkalemia (Acute) DKA (diabetic ketoacidoses) (Acute) This is a 39 years old male patient presented to the emergency room because of recurrent nausea, vomiting, headache and blurry vision on the right eye after 2 ER visits and he was found to have DKA, mild hyperkalemia and is being admitted for treatment and evaluation for headache and blurry vision on the right eye. #1 diabetic ketoacidosis: In context of history of type 1 diabetes mellitus. Blood sugar is 429, serum bicarb is 12 and anion gap is 21. Plan: Admit to ICU, critical care monitoring, n.p.o., complete bedrest, start IV insulin drip, DKA protocol, BMP every 4 hours, IV fluids per protocol, IV fluid bolus 30 cc/kg followed by maintenance IV fluids, repeat lactic acid in 3 hours, critical care consult, repeat CBC and BMP tomorrow morning. #2 hyperkalemia/dehydration: Secondary to #1 in addition to persistent nausea and vomiting. BUN is 22, creatinine is 1.21. Plan: IV fluids as above, IV antiemetics, BMP every 4 hours, repeat BMP tomorrow morning. #3 lactic acidosis/leukocytosis: This is probably due to DKA. Leukocytosis probably reactive. Patient denied any symptoms suggestive of infection. He has been afebrile, he does have leukocytosis. No neck stiffness. Denied cough or sputum production. Denied urinary symptoms. Plan: Blood culture, urine culture, urinalysis, chest x-ray, IV fluids, repeat lactic acid in 3 hours. At this time, no indication to start IV antibiotics. #4 right eye ptosis/disconjugate gaze/headache: Unclear etiology, posterior circulation stroke cannot be ruled out. CT scan brain done on April 29, 2020 that showed no acute infarct or hemorrhage. CTA of the head and neck done today and showed no acute findings. Apart from right eye ptosis and disconjugate gaze on the right eye, no other focal deficits. Vital signs are stable. Afebrile, no neck stiffness. Plan: MRI brain. #5 type 1 diabetes mellitus: He is in DKA. Plan as above, will check hemoglobin A1c. #6 history of peptic ulcer disease: Start IV Protonix twice daily. #7 DVT prophylaxis: Subcu Lovenox. This note was generated with [employer] software. It may contain incorrect words, spelling, and punctuation that were not noted in checking the note before signing. Inpatient E&M: 23096 Init Hosp L3
[2020-05-02 10:50] LABS: ALB/GLOB Ratio 1.4 RATIO (0.9-2.4); AST(SGOT) 17 U/L (15-37); Alanine Aminotransfer ALT/SGPT 19 U/L (16-61); Albumin, Serum 4.3 g/dL (3.2-5.0); Alkaline Phosphatase 70 U/L (45-117); Anion Gap 21 (5-15); BUN 22 mg/dL (7-18); BUN/Creat Ratio 18.2 RATIO (10-20); Calcium,Total 9.2 mg/dL (8.5-10.1); Chloride 102 mmol/L (98-107); Creatinine, Serum 1.21 mg/dL (0.70-1.30); EST Glomerular Filtration Rate 70 mL/min (>60); Est Glom Filt Rate - Afr Amer 85 mL/min (>60); Estimated Creatinine Clearance 88.18 ml/min; Globulin 3.1 g/dL (2.2-4.2); Glucose 429 mg/dL (74-106); Potassium 5.5 mmol/L (3.5-5.1); Protein, Total 7.4 g/dL (6.4-8.2); Sodium Level 135 mmol/L (136-145)
[2020-05-02 10:53] LABS: International Normalized Ratio 1.2; Partial Thromboplast Time 24.7 Seconds (24.1-36.2); Prothrombin Time (Protime)PT. 14.3 SECONDS (11.7-14.9)
[2020-05-02 10:58] LABS: Lactic Acid 3.8 mmol/L (0.4-1.9)
--- NOTE | 2020-05-02 11:09 | NURSING ---
I was asked to intervene with the pts. father as he had escalated after being asked to leave the treatment room in the ED as previously described. I found the father, Alfonso, in the triage area talking on the phone. The triage nurse had shared the concern as she understood it. I was able to sit with the father in the waiting room and determine his concerns. Alfonso had stated he was attempting to obtain access to the patient's records to ensure the entire story is being told. He shared a concern of the primary care physician not being aware of everything. It took some time to decipher what the exact concern was as the father was processing his concerns from a different perspective. I was able to explain the HIPAA form was filled out during each visit and it only informs and verified to the patient that we as the hospital cannot share his information without his permission. The father had talked about his son verbally agreeing to his parents having access to information. I explained the Release of Record form would be the tool to complete this also explaining this would give them access to information specified by his son. Addition concerns were shared relating to the son being out of it. The father wanted to ensure the entire story was being shared if his son was not able to share or speak. I educated him about becoming a legal Power of Scrubber System Attendant for healthcare. I told him I could begin this process for him. I explained this is only valid if his son is not able to make medical decisions on his own and did not give them permission,as parents to access to records or decision making otherwise. In the process of this conversation I explained to the father the best place to share events the son may forget is as a visitor in the room. He would be able to fill in blank spots to assist the physicians assessment and also helping guide his treatment plan. The father also had a concern about a Covid test and a result stating there is confusion about who and how the result would be shared. I validated through chart review and asking the son that no Covid test had been obtained. The son verified to me he did not have this test after hearing how the sample would have been obtained. The patient also gave verbal permission to share medical information with his parents. I explained to the father this verbal permission did not extend to the future relating they couldn't come or call and ask about medical treatment from the past. He verbalized understanding of this.The father was taken back to the room. Dr. Felipe was in the room and verified all plans of treatment at this time which the patient and the father verbalized understanding having no additional questions. After being in the room the father asked if his son could have some water. Dr Felipe had just exited the room for the second time and verbalized the patient could have water to drink. He also stated the patient was not required to have a dysphagia screening prior to drinking.
[2020-05-02] MEDS: 0.9% Normal Saline 1,000 ML 999 ML IV ×2 (11:16→12:24)
[2020-05-02] MEDS: proMETHazine 25 MG/ML Syringe 6.25 MG IV (11:16)
--- NOTE | 2020-05-02 11:59 | MRI_ITS ---
STUDY: MRI BRAIN WITHOUT CONTRAST REASON FOR EXAM: Male, 39 years old. rt eyelid ptosis, ceron, nausea, vomiting, recent dx DKA TECHNIQUE: Standardized multiplanar fat and water weighted pulse sequences were obtained. COMPARISON: Head CT dated April 29, 2020 FINDINGS: Normal size of the ventricles and extra-axial spaces for the patient''s age. Normal white matter tracts of the supratentorial brain. There is no evidence for recent intracranial ischemia or other cause of cytotoxic edema on diffusion weighted imaging (DWI). Normal T2* images of the brain without demonstrated susceptibility artifact. There is no demonstrated hemosiderin stain. Normal bilateral basal ganglia. Normal thalami. There is no extra-axial fluid accumulation. Normal flow voids within the major intracranial circulation suggesting patency by spin echo criteria. Normal sella turcica, pituitary gland, infundibular stalk, optic chiasm and hypothalamus. Normal tectal plate and pineal gland. Normal midbrain, enrrique and medulla. Normal cerebellum. Normal basal cisterns. Normal bilateral temporal bones. Normal bilateral internal auditory canals. No demonstrated orbital abnormality, within the constraints of a routine brain study. Normal visualized paranasal sinuses. Normal calvarium and skull base. Normal visualized soft tissue structures. Normal visualized upper cervical spine. MRI/Brain without Contrast IMPRESSION: Negative unenhanced MRI of the brain. Electronically Signed: Chilango Mai MD at 19:44 EDT , Service support ,
--- NOTE | 2020-05-02 12:14 | RAD_ITS ---
STUDY: X-RAY CHEST REASON FOR EXAM: Male, 39 years old. LEUKOCYTOSIS TECHNIQUE: Single AP portable view of the chest. COMPARISON: None. FINDINGS: EKG leads overlie the chest The lungs are clear and expanded. There is no demonstrated pleural abnormality. Normal size heart. Normal mediastinum and janette. Normal visualized pulmonary arteries. Normal visualized aortic arch and descending thoracic aorta. Normal visualized thoracic spine. Normal visualized ribs, clavicles, and shoulders. There is no demonstrated abnormality of the visualized soft tissue structures of the upper abdomen. RAD/Chest 1 View (Portable) IMPRESSION: Normal x-ray examination of the chest. Electronically Signed: Pop Boyle MD at 12:34 EDT , Service support ,
[2020-05-02 12:25] LABS: Bedside Glucose 394 mg/dL (70-110)
[2020-05-02 12:44] LABS: Hemoglobin A1c 10.7 % (3.8-5.6)
[2020-05-02 12:56] LABS: Anion Gap 17 (5-15); BUN 19 mg/dL (7-18); BUN/Creat Ratio 15.2 RATIO (10-20); Calcium,Total 8.6 mg/dL (8.5-10.1); Chloride 110 mmol/L (98-107); Creatinine, Serum 1.25 mg/dL (0.70-1.30); EST Glomerular Filtration Rate 68 mL/min (>60); Est Glom Filt Rate - Afr Amer 82 mL/min (>60); Estimated Creatinine Clearance 80.73 ml/min; Glucose 331 mg/dL (74-106); Lipase 80 U/L (73-393); Potassium 4.8 mmol/L (3.5-5.1); Sodium Level 139 mmol/L (136-145)
[2020-05-02] MEDS: 0.9% Normal Saline 1,000 ML 100 ML IV (13:30)
[2020-05-02 13:35] LABS: Bedside Glucose 261 mg/dL (70-110)
--- NOTE | 2020-05-02 13:44 | CON.PCM_ITS ---
Problem List (1) Dysconjugate gaze Status: Acute (2) Hyperkalemia Status: Acute (3) DKA (diabetic ketoacidoses) Status: Acute Qualifiers: Diabetes mellitus type: type 1 Diabetes mellitus complication detail: without coma Qualified Code(s): E10.10 - Type 1 diabetes mellitus with ketoacidosis without coma (4) DM (diabetes mellitus) Status: Chronic Qualifiers: Diabetes mellitus type: type 1 Comment: type 1 Reason for Consult Date of Consultation: 05/02/20 Reason for Consultation: DKA History of Present Illness: The patient is a 39 year old M, with past medical history listed below, who presented was [facility] [place] on 05/02/2020 secondary to nausea and vomiting. Patient had been seen in ER 3 days prior and had complained of blurry vision. At that time, patient had a noncontrasted CT of the head that was negative. Patient came back again this time with main complaints of nausea and vomiting. Patient was reportedly found to have a disconjugate gaze and had asked patient to be admitted, but he wanted to follow-up as an outpatient. After getting home, the patient thought he was having a reaction to the medication, felt very restless, anxious and had multiple episodes of vomiting. Patient denied any head trauma or focal weakness. In the ER, patient was noted to have decreased function to AB duct the right eye. Patient states that he was closing his right eye secondary to double vision and this made his nausea and vomiting worse. There was some concern for Tika syndrome versus posterior stroke, so patient underwent a CTA of the head and neck. This does not show any dissection or acute occlusion. Patient was discussed with the hospitalist and there was recommendation for admission for neurologic work-up. However, hospitalist had requested labs and these were consistent with DKA. Patient was started on insulin drip and admitted to the intensive care unit for further evaluation. Patient reports he has had DKA in the past. Patient does not believe that he is ever had issues with double vision or neurologic symptoms previously. Patient did have a biopsy of a breast mass completed approximately 4 months ago that was consistent with gynecomastia. Patient does report increased urination recently, but he attributed this to his elevated glucose. Patient states his glucose was in the 200s yesterday prior to what ever they gave me. Patient reports some improvement in nausea, but otherwise appears to be subjectively unchanged compared to previous. Review of systems otherwise negative from a constitutional, HEENT, respiratory, cardiovascular, GI, genitourinary, musculoskeletal, skin, neurologic, psychiatric and hematologic system unless stated above. Past Medical History Past Medical History (Chronic Problems): Chronic Problems (Last Updated 05/02/20 @ 10:[address] Abisai Montoya MD) Mass of left breast (Chronic) DM (diabetes mellitus) (Chronic) type 1 Peptic ulcer (Chronic) Medical History: Medical History (Last Updated 05/02/20 @ 10:[address] Abiasi Montoya MD) Mass of left breast (Chronic) N63.20 Breast mass N63.0 Diabetes insipidus E23.2 Allergies No Known Allergies Allergy (Verified 05/02/20 09:02) Home Medications: Ambulatory Orders Medication Instructions Recorded Insulin Glargine [Lantus SoloStar 20 units SUBCUT DAILY 09/13/13 Pen] Insulin Lispro [Humalog] unit SQ TID 09/13/13 proMETHazine tablet [Phenergan 25 mg PO Q6H PRN PRN #12 tab 05/01/20 tablet] Surgical History: Surgical History (Last Updated 02/19/20 @ 12:24 by Amisha Gupta) History of colonoscopy Onset Date: ~05/2019 Z98.890 History of hernia repair Onset Date: ~2007 Z98.890, Z87.19 History of tonsillectomy Onset Date: ~1984 Z90.89 Surgical History: herniorrhaphy, tonsillectomy Psychiatric History: No pertinent psych hx Lives: With Family Smoking Status: Never smoker Alcohol: Occasional Drugs: None - *Family History Maternal Family History: Family History (Last Updated 02/19/20 @ 12:24 by Amisha Gupta) Father Cancer History Items: No pertinent history Paternal Family History: Family History (Last Updated 02/19/20 @ 12:24 by Amisha Gupta) Father Cancer History Items: Heart Disease Review of Systems Comment: See HPI Patient Problems: Active and Suspected Problems (Last Updated 05/02/20 @ 10:[address] Abisai Montoya MD) Dysconjugate gaze (Acute) Lactic acidosis (Acute) Hyperkalemia (Acute) DKA (diabetic ketoacidoses) (Acute) Objective: All imaging was personally reviewed. CTA of the head does not appear to have any occlusion. Evaluation of the sella turcica was limited. MRI has not been completed. - Physical Exam Vitals/I&O's: Vital Signs Temp Pulse Resp BP Pulse Ox 37.2 C 103 H 23 H 136/75 H 100 05/02/20 11:59 05/02/20 12:02 05/02/20 11:59 05/02/20 11:59 05/02/20 11:59 Oxygen Delivery Method Room Air Weight: 73.391 kg Body Mass Index (BMI) 21.9 Finger Stick Blood Glucose 261 Intake and Output for Last 24 Hours 04/30/20 05/01/20 05/02/20 23:59 23:59 23:59 Intake Total Balance General: Alert, Oriented x3, Cooperative, No apparent distress, - - Thin build. HEENT: Atraumatic, PERRLA, EOMI, Normocephalic, - - Voluntary closure of the right eye. Disconjugate gaze noted. Oral: No Gingival or Mucosal Lesions/ Ulcerations, Dry Mucosa Neck: Supple, No JVD, No Nodes, Trachea Midline Lungs: Clear to auscultation, Normal air movement, No rhonchi, No wheeze, No rales Cardiovascular: Regular rate, Regular Rhythm, Normal S1, Normal S2, No murmurs, No rub noted, No Gallop Abdomen: Bowel Sounds Present, Soft, Non Tender, Non-Distended Extremities: No clubbing, No cyanosis, No edema, Capillary Refill Less than 3 Seconds Skin: No rashes, No breakdown Musculoskeletal: No Tenderness to Palpation of Joints or Extremities Lymphatic: No Cervical, Supraclavicular, or Inguinal Adenopathy Neurological: - - Disconjugate gaze noted. No focal muscular or sensory deficits noted. No ataxia or aphasia appreciated. Psych/Mental Status: Normal Affect, Appropriate Laboratory Results 05/02/20 10:20: WBC 23.5 H, RBC 4.57 L, Hgb 14.5, Hct 43.6, MCV 95.4 H, MCH 31.7, MCHC 33.3, RDW Std Deviation 40.8, RDW Coeff of [place] 11.8, Plt Count 324, MPV 11.6, Immature Gran % (Auto) 0.600, Neut % (Auto) 90.5 H, Lymph % (Auto) 2.4 L, [place] % (Auto) 6.3, Eos % (Auto) 0.0, Baso % (Auto) 0.2, Absolute Neuts (auto) 21.2 H, Absolute Lymphs (auto) 0.57 L, Nucleated RBC % 0 05/02/20 10:20: PT 14.3, INR 1.2, APTT 24.7 05/02/20 10:20: Sodium 135 L, Potassium 5.5 H, Chloride 102, Carbon Dioxide 12.0 L, Anion Gap 21 H, BUN 22 H, Creatinine 1.21, Estim Creat Clear Calc 88.18, Est GFR (MDRD) Af Amer 85, Est GFR (MDRD) Non-Af 70, BUN/Creatinine Ratio 18.2, Glucose 429 H, Calcium 9.2, Total Bilirubin 1.10 H, AST 17, ALT 19, Alkaline Phosphatase 70, Total Protein 7.4, Albumin 4.3, Globulin 3.1, Albumin/Globulin Ratio 1.4 05/02/20 10:20: Lactic Acid 3.8 H* 05/02/20 10:20: Hemoglobin A1c 10.7 H 05/02/20 11:00: Acetone Level SMALL H 05/02/20 11:00: TSH Pending, Free T4 Pending, FSH Pending, Luteinizing Hormone Pending, Prolactin Pending 05/02/20 11:00: Cortisol Pending 05/02/20 11:35: Sodium 139, Potassium 4.8, Chloride 110 H, Carbon Dioxide 12.0 L , Anion Gap 17 H, BUN 19 H, Creatinine 1.25, Estim Creat Clear Calc 80.73, Est GFR (MDRD) Af Amer 82, Est GFR (MDRD) Non-Af 68, BUN/Creatinine Ratio 15.2, Glucose 331 H, Calcium 8.6, Lipase 80 05/02/20 12:19: POC Glucose 394 H 05/02/20 13:30: POC Glucose 261 H Current Medications Acetaminophen (Tylenol) 650 mg PO Q6H PRN PRN PRN Reason: Pain Score 1-10/Temp > 100.7 F Dextrose (D50w Syringe) 0 gm IV X1 PRN; Protocol PRN Reason: Hypoglycemia Enoxaparin Sodium (Lovenox) 40 mg SC DAILY [facility] Glucagon () 1 mg IM .X1 PRN PRN Reason: Hypoglycemia Sodium Chloride () 1,000 mls @ 100 mls/hr IV .Q10H JACK Last Admin: 05/02/20 13:30 Dose: 100 mls/hr Documented by: Pantoprazole Sodium 40 mg/ (Sodium Chloride) 110 mls @ 330 mls/hr IV Q12 JACK Insulin Human Lispro 100 unit/ (Sodium Chloride) 100 mls @ 8.165 mls/hr IV .[id number] JACK; Protocol Last Admin: 05/02/20 12:30 Dose: Not Given Documented by: Ondansetron HCl (Zofran) 4 mg IV Q6H PRN PRN PRN Reason: NAUSEA/VOMITING Sodium Chloride () 10 - 40 ml IV UD PRN PRN Reason: SALINE FLUSH Clinical Impression(s) from Imaging Studies Head/Neck CTA 05/02/20 09:08 IMPRESSION: Normal CTA Head and neck with contrast. Electronically Signed: Pop Boyle MD at 9:53 EDT , Service support , Chest X-Ray 05/02/20 12:14 IMPRESSION: Normal x-ray examination of the chest. Electronically Signed: Pop Boyle MD at 12:34 EDT , Service support , Assessment/Plan Active and Suspected Problems (Last Updated 05/02/20 @ 10:[address] Abisai Montoya MD) Dysconjugate gaze (Acute) Lactic acidosis (Acute) Hyperkalemia (Acute) DKA (diabetic ketoacidoses) (Acute) RECOMMENDATIONS: 1. Obtain MRI 2. Labs for potential pituitary adenoma 3. DKA protocol 4. Aggressive hydration IMPRESSIONS: 1. DKA secondary to uncontrolled type 1 diabetes mellitus Patient with recent labs showing no DKA. Patient with decreased bicarbonate with anion gap today. Patient was complaining of some nausea on previous presentations. Likely okay to discontinue lactic acid levels. Proceed with DKA protocol. 2. Disconjugate gaze Some concern for possible pituitary adenoma. Patient with disconjugate gaze, recent breast mass, headache and nausea with vomiting. Patient does not have any neck stiffness, fever or other signs of meningitis at this time. Patient does have some leukocytosis, but this appears to be secondary to DKA and significant dehydration. MRI has been ordered. We will also add labs for pituitary function. Patient may require neurosurgical evaluation. 3. Acute kidney injury secondary to dehydration secondary to problem #1 Clinical suspicion for dehydration secondary to nausea, vomiting and polyuria. Aggressive fluid resuscitation per DKA protocol. No indication for renal replacement therapy at this time. We will continue to hydrate and evaluate with subsequent lab work. 4. Thin build/history of peptic ulcer disease/recurrent ER visits Complicates care, management, recovery and prognosis. Okay to continue with IV Protonix until able to tolerate p.o. No indication for Protonix drip. Inpatient E&M: 13033 Init Hosp L3
[2020-05-02 14:00] LABS: Follicle Stimulating Hormone 2.4 mIU/mL; Luteinizing Hormone 1.6 mIU/mL; Prolactin 10.4 ng/mL; Thyroid Stim Hormone (TSH) 1.49 uIU/mL (0.358-3.74)
[2020-05-02 14:25] LABS: Reflex Lactate? Y
[2020-05-02 14:56] LABS: Base Excess -20 mmol/L (-2 to +2); Bicarbonate 8.4 mmol/L (22-26); Blood Gas Specimen Type ART; O2 Delivery Device Room Air; PO2 89 mmHG (75-100); SITE L BRACHIAL; SO2 94 % (95-99); Total Carbon Dioxide 9 mmol/L; pCO2 23.2 mmHg (35-45); pH 7.17 (7.35-7.45)
--- NOTE | 2020-05-02 15:06 | CASEMGMT ---
RN CM attempted to complete Face to Face assessment at this time. Patient is out of room at testing. CM will attempt again at later time.
[2020-05-02 15:40] LABS: Bedside Glucose 268 mg/dL (70-110)
[2020-05-02 16:19] LABS: Anion Gap 15 (5-15); BUN 18 mg/dL (7-18); BUN/Creat Ratio 13.8 RATIO (10-20); Calcium,Total 8.5 mg/dL (8.5-10.1); Chloride 111 mmol/L (98-107); EST Glomerular Filtration Rate 65 mL/min (>60); Est Glom Filt Rate - Afr Amer 78 mL/min (>60); Estimated Creatinine Clearance 77.63 ml/min; Glucose 268 mg/dL (74-106); Potassium 5.6 mmol/L (3.5-5.1); Sodium Level 140 mmol/L (136-145)
[2020-05-02 16:27] LABS: Lactic Acid 2.2 mmol/L (0.4-1.9)
[2020-05-02 16:50] LABS: Bedside Glucose 219 mg/dL (70-110)
[2020-05-02] MEDS: 0.9% Saline Lock 10 ML Syringe IV ×3 (17:03→20:10)
[2020-05-02 17:40] LABS: Bedside Glucose 191 mg/dL (70-110)
[2020-05-02 18:46] LABS: Bedside Glucose 189 mg/dL (70-110)
[2020-05-02 19:41] LABS: Bedside Glucose 146 mg/dL (70-110)
[2020-05-02] MEDS: proMETHazine 25 MG/ML Syringe 12.5 MG IV (20:00)
[2020-05-02 20:20] LABS: Bacteria 0 SEEN /hpf (None Seen); Mucous, Urine 0 SEEN /hpf (<or=2+); Red Blood Cells-Urine 0 SEEN /hpf (0-5); Squamous Epithelial Cells - UA 0 SEEN /hpf (0-5); White Blood Cells 0 SEEN /hpf (0-5)
[2020-05-02 20:33] LABS: Color, Urine Yellow (Yellow); Glucose, Dipstick 1000 mg/dl (Normal); Leukocyte Esterase-Dipstick Negative /ul (Negative); Nitrite-Dipstick Negative (Negative); Occult Blood-Urine Negative /ul (Negative); Protein-Dipstick 30 mg/dl (Negative); Urine Bilirubin Dipstick Negative (Negative); Urine Clarity Clear (Clear); Urine Urobilinogen Normal (Normal)
[2020-05-02 20:43] LABS: Anion Gap 10 (5-15); BUN 17 mg/dL (7-18); BUN/Creat Ratio 15.3 RATIO (10-20); Calcium,Total 8.5 mg/dL (8.5-10.1); Chloride 115 mmol/L (98-107); Creatinine, Serum 1.11 mg/dL (0.70-1.30); EST Glomerular Filtration Rate 77 mL/min (>60); Est Glom Filt Rate - Afr Amer 94 mL/min (>60); Estimated Creatinine Clearance 90.91 ml/min; Glucose 132 mg/dL (74-106); Potassium 3.9 mmol/L (3.5-5.1); Sodium Level 144 mmol/L (136-145)
[2020-05-02 20:44] LABS: Ketone-Dipstick 150 mg/dl (Negative)
[2020-05-02 20:50] LABS: Amphetamine Urine VISTA NEGATIVE (<1000 ng/mL); Barbiturate Urine VISTA NEGATIVE (< 200 ng/mL); Benzodiazepine Urine VISTA NEGATIVE (< 200 ng/mL); Cocaine Urine VISTA NEGATIVE (< 300 ng/mL); Ecstacy Urine VISTA NEGATIVE (< 500 ng/mL); Methadone Urine VISTA NEGATIVE (< 300 ng/mL); PCP Urine VISTA NEGATIVE (< 25 ng/mL); THC Urine VISTA NEGATIVE (< 50 ng/mL); Vista UDS pH Range 5
[2020-05-02 20:51] LABS: Bedside Glucose 125 mg/dL (70-110)
[2020-05-02 21:56] LABS: Bedside Glucose 86 mg/dL (70-110)
[2020-05-02 22:51] LABS: Bedside Glucose 99 mg/dL (70-110)
[2020-05-02 23:55] LABS: Bedside Glucose 92 mg/dL (70-110)
[2020-05-03] VITALS (20 sets, daily range): BP systolic 85–131; BP diastolic 56–92; PULSE 63–106; RESP 11–23; TEMP 36.6–37.7; O2SAT 97–100
[2020-05-03] MEDS: 0.9% Saline Lock 10 ML Syringe IV ×2 (00:08→04:53)
[2020-05-03 00:27] LABS: Anion Gap 5 (5-15); BUN 18 mg/dL (7-18); BUN/Creat Ratio 17.3 RATIO (10-20); Calcium,Total 8.2 mg/dL (8.5-10.1); Chloride 116 mmol/L (98-107); Creatinine, Serum 1.04 mg/dL (0.70-1.30); EST Glomerular Filtration Rate 83 mL/min (>60); Est Glom Filt Rate - Afr Amer 101 mL/min (>60); Estimated Creatinine Clearance 97.03 ml/min; Glucose 101 mg/dL (74-106); Potassium 3.6 mmol/L (3.5-5.1); Sodium Level 143 mmol/L (136-145)
[2020-05-03 02:00] LABS: Bedside Glucose 82 mg/dL (70-110)
[2020-05-03] MEDS: Ondansetron 4 MG/2 ML Vial 8 MG IV ×4 (02:02→23:10)
[2020-05-03] MEDS: Acetaminophen 325 MG Tablet 650 MG PO ×4 (04:44→23:09)
[2020-05-03 05:05] LABS: Absolute Neutrophil Count 14.6 X10^3/uL (2.0-7.7); Basophil# 0.03 X10^3/uL; Basophil% 0.2 % (0-1); Eosinophil# 0.01 X10^3/uL; Eosinophils% 0.1 % (0-5); Hematocrit 41.6 % (40-54); Hemoglobin 13.7 g/dL (13.0-16.5); Lymphocyte % 8.4 % (19-41); Mean Corp Hgb Conc 32.9 g/dL (32-36); Mean Corpuscular Hgb 31.1 pg (27.0-32.0); Mean Corpuscular Volume 94.5 fL (80-94); Mean Platelet Vol. 10.5 fl (6.2-12.0); Monocyte# 1.75 X10^3/uL; Monocyte% 9.8 % (0-10); NRBC Flagged by Analyzer 0 % (0-5); Neutrophil # 14.58 X10^3/uL (2.7-7.7); Neutrophil % 81.2 % (47-70); POSITIVE DIFFERENTIAL YES; Platelet Count 307 K/mm3 (150-450); RBC Distribution Width CV 12.3 % (11.6-14.6); RBC Distribution Width SD 42.4 fl (35.1-43.9); White Blood Count 17.9 K/mm3 (4.4-11.0)
[2020-05-03 05:06] LABS: Bedside Glucose 74 mg/dL (70-110)
[2020-05-03 05:17] LABS: Differential Indicated SCAN CRITERIA MET
[2020-05-03 05:24] LABS: ALB/GLOB Ratio 1.2 RATIO (0.9-2.4); AST(SGOT) 10 U/L (15-37); Alanine Aminotransfer ALT/SGPT 17 U/L (16-61); Albumin, Serum 3.5 g/dL (3.2-5.0); Alkaline Phosphatase 58 U/L (45-117); Anion Gap 5 (5-15); BUN 17 mg/dL (7-18); BUN/Creat Ratio 15.7 RATIO (10-20); Calcium,Total 8.2 mg/dL (8.5-10.1); Chloride 114 mmol/L (98-107); Creatinine, Serum 1.08 mg/dL (0.70-1.30); EST Glomerular Filtration Rate 80 mL/min (>60); Est Glom Filt Rate - Afr Amer 97 mL/min (>60); Estimated Creatinine Clearance 93.44 ml/min; Glucose 79 mg/dL (74-106); Potassium 3.6 mmol/L (3.5-5.1); Protein, Total 6.5 g/dL (6.4-8.2); Sodium Level 142 mmol/L (136-145)
[2020-05-03 06:08] LABS: Differential Comment SCANNED
--- NOTE | 2020-05-03 07:05 | PCM.PN.INT ---
Subjective: Patient did okay overnight. Patient still having significant nausea and is refusing to take p.o., so insulin drip was continued. Patient continues to have his eye symptoms with no significant change. Patient does believe his nausea is slightly improved that he attributes to improvement in his DKA. Objective: MRI completed yesterday shows no issues of the sella turcica or acute infarct. General: Alert, Oriented x3, Cooperative, - - Mild distress. Thin built. HEENT: Atraumatic, Normocephalic, - - Right voluntary closure of eyelid. Able to open on command Oral: Moist Mucosa, No Gingival or Mucosal Lesions/ Ulcerations Neck: Supple, No JVD, No Nodes, Trachea Midline Lungs: Clear to auscultation, Normal air movement, No rhonchi, No wheeze, No rales Cardiovascular: Regular rate, Regular Rhythm, Normal S1, Normal S2, No murmurs, No rub noted, No Gallop Abdomen: Bowel Sounds Present, Soft, Non Tender, Non-Distended Extremities: No clubbing, No cyanosis, No edema, Capillary Refill Less than 3 Seconds Skin: No rashes, No breakdown Musculoskeletal: No Tenderness to Palpation of Joints or Extremities Lymphatic: No Cervical, Supraclavicular, or Inguinal Adenopathy Neurological: - - No change compared to yesterday Psych/Mental Status: Alert and oriented to time, place, person, mood and affect Vital Signs Temp Pulse Resp BP Pulse Ox 36.8 C 83 18 97/63 97 05/03/20 04:00 05/03/20 07:00 05/03/20 07:00 05/03/20 07:00 05/03/20 07:00 Oxygen Delivery Method Room Air Weight: 74.2 kg Body Mass Index (BMI) 21.9 Finger Stick Blood Glucose 191 Intake and Output for Last 24 Hours 05/01/20 05/02/20 05/03/20 23:59 23:59 23:59 Intake Total 3586.00 / 3636.00 1895. / 1895.01 Output Total 1500 / 1500 0 / 0 Balance 2086.00 / 2136.00 1895. / 189.01 Labs (Last 48 Hours) 05/02/20 05/02/20 05/02/20 10:20 10:20 10:20 WBC 23.5 H RBC 4.57 L Hgb 14.5 Hct 43.6 MCV 95.4 H MCH 31.7 MCHC 33.3 RDW Std Deviation 40.8 RDW Coeff of [place] 11.8 Plt Count 324 MPV 11.6 Immature Gran % (Auto) 0.600 Neut % (Auto) 90.5 H Lymph % (Auto) 2.4 L [place] % (Auto) 6.3 Eos % (Auto) 0.0 Baso % (Auto) 0.2 Absolute Neuts (auto) 21.2 H Absolute Lymphs (auto) 0.57 L Nucleated RBC % 0 Differential Comment Diff Path Review PT 14.3 INR 1.2 APTT 24.7 Specimen Type Sample Site pH Bicarbonate Actual POC Total CO2 Base Excess O2 Saturation ABG pCO2 ABG pO2 O2 Delivery Device Blood Gas Notified Whom Sodium 135 L Potassium 5.5 H Chloride 102 Carbon Dioxide 12.0 L Anion Gap 21 H BUN 22 H Creatinine 1.21 Estim Creat Clear Calc 88.18 Est GFR (MDRD) Af Amer 85 Est GFR (MDRD) Non-Af 70 BUN/Creatinine Ratio 18.2 Glucose 429 H Hemoglobin A1c Lactic Acid Calcium 9.2 Total Bilirubin 1.10 H AST 17 ALT 19 Alkaline Phosphatase 70 Total Protein 7.4 Albumin 4.3 Globulin 3.1 Albumin/Globulin Ratio 1.4 Lipase TSH Free T4 FSH Luteinizing Hormone Prolactin Cortisol Urine Color Urine Clarity Urine pH Ur Specific [place] Urine Protein Urine Glucose (UA) Urine Ketones Urine Occult Blood Urine Nitrite Urine Bilirubin Urine Urobilinogen Ur Leukocyte Esterase Urine RBC Urine WBC Ur Squamous Epith Cells Urine Bacteria Urine Mucus Urine Opiates Screen Urine Methadone Screen Ur Barbiturates Screen Ur Phencyclidine Scrn Ur Amphetamines Screen U Methamphetamin-MDMA U Benzodiazepines Scrn Urine Cocaine Screen U Cannabinoids Screen Ur Drug Screen Comment Acetone Level POC Glucose 05/02/20 05/02/20 05/02/20 10:20 10:20 11:00 WBC RBC Hgb Hct MCV MCH MCHC RDW Std Deviation RDW Coeff of [place] Plt Count MPV Immature Gran % (Auto) Neut % (Auto) Lymph % (Auto) [place] % (Auto) Eos % (Auto) Baso % (Auto) Absolute Neuts (auto) Absolute Lymphs (auto) Nucleated RBC % Differential Comment Diff Path Review PT INR APTT Specimen Type Sample Site pH Bicarbonate Actual POC Total CO2 Base Excess O2 Saturation ABG pCO2 ABG pO2 O2 Delivery Device Blood Gas Notified Whom Sodium Potassium Chloride Carbon Dioxide Anion Gap BUN Creatinine Estim Creat Clear Calc Est GFR (MDRD) Af Amer Est GFR (MDRD) Non-Af BUN/Creatinine Ratio Glucose Hemoglobin A1c 10.7 H Lactic Acid 3.8 H* Calcium Total Bilirubin AST ALT Alkaline Phosphatase Total Protein Albumin Globulin Albumin/Globulin Ratio Lipase TSH Free T4 FSH Luteinizing Hormone Prolactin Cortisol Urine Color Urine Clarity Urine pH Ur Specific [place] Urine Protein Urine Glucose (UA) Urine Ketones Urine Occult Blood Urine Nitrite Urine Bilirubin Urine Urobilinogen Ur Leukocyte Esterase Urine RBC Urine WBC Ur Squamous Epith Cells Urine Bacteria Urine Mucus Urine Opiates Screen Urine Methadone Screen Ur Barbiturates Screen Ur Phencyclidine Scrn Ur Amphetamines Screen U Methamphetamin-MDMA U Benzodiazepines Scrn Urine Cocaine Screen U Cannabinoids Screen Ur Drug Screen Comment Acetone Level SMALL H POC Glucose 05/02/20 05/02/20 05/02/20 11:00 11:00 11:35 WBC RBC Hgb Hct MCV MCH MCHC RDW Std Deviation RDW Coeff of [place] Plt Count MPV Immature Gran % (Auto) Neut % (Auto) Lymph % (Auto) [place] % (Auto) Eos % (Auto) Baso % (Auto) Absolute Neuts (auto) Absolute Lymphs (auto) Nucleated RBC % Differential Comment Diff Path Review PT INR APTT Specimen Type Sample Site pH Bicarbonate Actual POC Total CO2 Base Excess O2 Saturation ABG pCO2 ABG pO2 O2 Delivery Device Blood Gas Notified Whom Sodium 139 Potassium 4.8 Chloride 110 H Carbon Dioxide 12.0 L Anion Gap 17 H BUN 19 H Creatinine 1.25 Estim Creat Clear Calc 80.73 Est GFR (MDRD) Af Amer 82 Est GFR (MDRD) Non-Af 68 BUN/Creatinine Ratio 15.2 Glucose 331 H Hemoglobin A1c Lactic Acid Calcium 8.6 Total Bilirubin AST ALT Alkaline Phosphatase Total Protein Albumin Globulin Albumin/Globulin Ratio Lipase 80 TSH 1.49 Free T4 1.10 FSH 2.4 Luteinizing Hormone 1.6 Prolactin 10.4 Cortisol 94.40 H Urine Color Urine Clarity Urine pH Ur Specific [place] Urine Protein Urine Glucose (UA) Urine Ketones Urine Occult Blood Urine Nitrite Urine Bilirubin Urine Urobilinogen Ur Leukocyte Esterase Urine RBC Urine WBC Ur Squamous Epith Cells Urine Bacteria Urine Mucus Urine Opiates Screen Urine Methadone Screen Ur Barbiturates Screen Ur Phencyclidine Scrn Ur Amphetamines Screen U Methamphetamin-MDMA U Benzodiazepines Scrn Urine Cocaine Screen U Cannabinoids Screen Ur Drug Screen Comment Acetone Level POC Glucose 05/02/20 05/02/20 05/02/20 12:19 13:10 13:30 WBC RBC Hgb Hct MCV MCH MCHC RDW Std Deviation RDW Coeff of [place] Plt Count MPV Immature Gran % (Auto) Neut % (Auto) Lymph % (Auto) [place] % (Auto) Eos % (Auto) Baso % (Auto) Absolute Neuts (auto) Absolute Lymphs (auto) Nucleated RBC % Differential Comment Diff Path Review PT INR APTT Specimen Type ART Sample Site L BRACHIAL pH 7.17 L* Bicarbonate Actual 8.4 L POC Total CO2 9 Base Excess -20 L O2 Saturation 94 L ABG pCO2 23.2 L ABG pO2 89 O2 Delivery Device Room Air Blood Gas Notified Whom HOSP MD Sodium Potassium Chloride Carbon Dioxide Anion Gap BUN Creatinine Estim Creat Clear Calc Est GFR (MDRD) Af Amer Est GFR (MDRD) Non-Af BUN/Creatinine Ratio Glucose Hemoglobin A1c Lactic Acid Calcium Total Bilirubin AST ALT Alkaline Phosphatase Total Protein Albumin Globulin Albumin/Globulin Ratio Lipase TSH Free T4 FSH Luteinizing Hormone Prolactin Cortisol Urine Color Urine Clarity Urine pH Ur Specific [place] Urine Protein Urine Glucose (UA) Urine Ketones Urine Occult Blood Urine Nitrite Urine Bilirubin Urine Urobilinogen Ur Leukocyte Esterase Urine RBC Urine WBC Ur Squamous Epith Cells Urine Bacteria Urine Mucus Urine Opiates Screen Urine Methadone Screen Ur Barbiturates Screen Ur Phencyclidine Scrn Ur Amphetamines Screen U Methamphetamin-MDMA U Benzodiazepines Scrn Urine Cocaine Screen U Cannabinoids Screen Ur Drug Screen Comment Acetone Level POC Glucose 394 H 261 H 05/02/20 05/02/20 05/02/20 15:24 15:30 15:30 WBC RBC Hgb Hct MCV MCH MCHC RDW Std Deviation RDW Coeff of [place] Plt Count MPV Immature Gran % (Auto) Neut % (Auto) Lymph % (Auto) [place] % (Auto) Eos % (Auto) Baso % (Auto) Absolute Neuts (auto) Absolute Lymphs (auto) Nucleated RBC % Differential Comment Diff Path Review PT INR APTT Specimen Type Sample Site pH Bicarbonate Actual POC Total CO2 Base Excess O2 Saturation ABG pCO2 ABG pO2 O2 Delivery Device Blood Gas Notified Whom Sodium 140 Potassium 5.6 H Chloride 111 H Carbon Dioxide 14.0 L Anion Gap 15 BUN 18 Creatinine 1.30 Estim Creat Clear Calc 77.63 Est GFR (MDRD) Af Amer 78 Est GFR (MDRD) Non-Af 65 BUN/Creatinine Ratio 13.8 Glucose 268 H Hemoglobin A1c Lactic Acid 2.2 H* Calcium 8.5 Total Bilirubin AST ALT Alkaline Phosphatase Total Protein Albumin Globulin Albumin/Globulin Ratio Lipase TSH Free T4 FSH Luteinizing Hormone Prolactin Cortisol Urine Color Urine Clarity Urine pH Ur Specific [place] Urine Protein Urine Glucose (UA) Urine Ketones Urine Occult Blood Urine Nitrite Urine Bilirubin Urine Urobilinogen Ur Leukocyte Esterase Urine RBC Urine WBC Ur Squamous Epith Cells Urine Bacteria Urine Mucus Urine Opiates Screen Urine Methadone Screen Ur Barbiturates Screen Ur Phencyclidine Scrn Ur Amphetamines Screen U Methamphetamin-MDMA U Benzodiazepines Scrn Urine Cocaine Screen U Cannabinoids Screen Ur Drug Screen Comment Acetone Level POC Glucose 268 H 05/02/20 05/02/20 05/02/20 16:48 17:36 18:40 WBC RBC Hgb Hct MCV MCH MCHC RDW Std Deviation RDW Coeff of [place] Plt Count MPV Immature Gran % (Auto) Neut % (Auto) Lymph % (Auto) [place] % (Auto) Eos % (Auto) Baso % (Auto) Absolute Neuts (auto) Absolute Lymphs (auto) Nucleated RBC % Differential Comment Diff Path Review PT INR APTT Specimen Type Sample Site pH Bicarbonate Actual POC Total CO2 Base Excess O2 Saturation ABG pCO2 ABG pO2 O2 Delivery Device Blood Gas Notified Whom Sodium Potassium Chloride Carbon Dioxide Anion Gap BUN Creatinine Estim Creat Clear Calc Est GFR (MDRD) Af Amer Est GFR (MDRD) Non-Af BUN/Creatinine Ratio Glucose Hemoglobin A1c Lactic Acid Calcium Total Bilirubin AST ALT Alkaline Phosphatase Total Protein Albumin Globulin Albumin/Globulin Ratio Lipase TSH Free T4 FSH Luteinizing Hormone Prolactin Cortisol Urine Color Urine Clarity Urine pH Ur Specific [place] Urine Protein Urine Glucose (UA) Urine Ketones Urine Occult Blood Urine Nitrite Urine Bilirubin Urine Urobilinogen Ur Leukocyte Esterase Urine RBC Urine WBC Ur Squamous Epith Cells Urine Bacteria Urine Mucus Urine Opiates Screen Urine Methadone Screen Ur Barbiturates Screen Ur Phencyclidine Scrn Ur Amphetamines Screen U Methamphetamin-MDMA U Benzodiazepines Scrn Urine Cocaine Screen U Cannabinoids Screen Ur Drug Screen Comment Acetone Level POC Glucose 219 H 191 H 189 H 05/02/20 05/02/20 05/02/20 19:35 20:00 20:00 WBC RBC Hgb Hct MCV MCH MCHC RDW Std Deviation RDW Coeff of [place] Plt Count MPV Immature Gran % (Auto) Neut % (Auto) Lymph % (Auto) [place] % (Auto) Eos % (Auto) Baso % (Auto) Absolute Neuts (auto) Absolute Lymphs (auto) Nucleated RBC % Differential Comment Diff Path Review PT INR APTT Specimen Type Sample Site pH Bicarbonate Actual POC Total CO2 Base Excess O2 Saturation ABG pCO2 ABG pO2 O2 Delivery Device Blood Gas Notified Whom Sodium Potassium Chloride Carbon Dioxide Anion Gap BUN Creatinine Estim Creat Clear Calc Est GFR (MDRD) Af Amer Est GFR (MDRD) Non-Af BUN/Creatinine Ratio Glucose Hemoglobin A1c Lactic Acid Calcium Total Bilirubin AST ALT Alkaline Phosphatase Total Protein Albumin Globulin Albumin/Globulin Ratio Lipase TSH Free T4 FSH Luteinizing Hormone Prolactin Cortisol Urine Color Yellow Urine Clarity Clear Urine pH 5.0 Ur Specific [place] 1.020 Urine Protein 30 H Urine Glucose (UA) 1000 H Urine Ketones 150 H Urine Occult Blood Negative Urine Nitrite Negative Urine Bilirubin Negative Urine Urobilinogen Normal Ur Leukocyte Esterase Negative Urine RBC 0 SEEN Urine WBC 0 SEEN Ur Squamous Epith Cells 0 SEEN Urine Bacteria 0 SEEN Urine Mucus 0 SEEN Urine Opiates Screen NEGATIVE Urine Methadone Screen NEGATIVE Ur Barbiturates Screen NEGATIVE Ur Phencyclidine Scrn NEGATIVE Ur Amphetamines Screen NEGATIVE U Methamphetamin-MDMA NEGATIVE U Benzodiazepines Scrn NEGATIVE Urine Cocaine Screen NEGATIVE U Cannabinoids Screen NEGATIVE Ur Drug Screen Comment Acetone Level POC Glucose 146 H 05/02/20 05/02/20 05/02/20 20:10 20:36 21:49 WBC RBC Hgb Hct MCV MCH MCHC RDW Std Deviation RDW Coeff of [place] Plt Count MPV Immature Gran % (Auto) Neut % (Auto) Lymph % (Auto) [place] % (Auto) Eos % (Auto) Baso % (Auto) Absolute Neuts (auto) Absolute Lymphs (auto) Nucleated RBC % Differential Comment Diff Path Review PT INR APTT Specimen Type Sample Site pH Bicarbonate Actual POC Total CO2 Base Excess O2 Saturation ABG pCO2 ABG pO2 O2 Delivery Device Blood Gas Notified Whom Sodium 144 Potassium 3.9 Chloride 115 H Carbon Dioxide 19.0 L Anion Gap 10 BUN 17 Creatinine 1.11 Estim Creat Clear Calc 90.91 Est GFR (MDRD) Af Amer 94 Est GFR (MDRD) Non-Af 77 BUN/Creatinine Ratio 15.3 Glucose 132 H Hemoglobin A1c Lactic Acid Calcium 8.5 Total Bilirubin AST ALT Alkaline Phosphatase Total Protein Albumin Globulin Albumin/Globulin Ratio Lipase TSH Free T4 FSH Luteinizing Hormone Prolactin Cortisol Urine Color Urine Clarity Urine pH Ur Specific [place] Urine Protein Urine Glucose (UA) Urine Ketones Urine Occult Blood Urine Nitrite Urine Bilirubin Urine Urobilinogen Ur Leukocyte Esterase Urine RBC Urine WBC Ur Squamous Epith Cells Urine Bacteria Urine Mucus Urine Opiates Screen Urine Methadone Screen Ur Barbiturates Screen Ur Phencyclidine Scrn Ur Amphetamines Screen U Methamphetamin-MDMA U Benzodiazepines Scrn Urine Cocaine Screen U Cannabinoids Screen Ur Drug Screen Comment Acetone Level POC Glucose 125 H 86 05/02/20 05/02/20 05/03/20 22:43 23:43 00:08 WBC RBC Hgb Hct MCV MCH MCHC RDW Std Deviation RDW Coeff of [place] Plt Count MPV Immature Gran % (Auto) Neut % (Auto) Lymph % (Auto) [place] % (Auto) Eos % (Auto) Baso % (Auto) Absolute Neuts (auto) Absolute Lymphs (auto) Nucleated RBC % Differential Comment Diff Path Review PT INR APTT Specimen Type Sample Site pH Bicarbonate Actual POC Total CO2 Base Excess O2 Saturation ABG pCO2 ABG pO2 O2 Delivery Device Blood Gas Notified Whom Sodium 143 Potassium 3.6 Chloride 116 H Carbon Dioxide 22.0 Anion Gap 5 BUN 18 Creatinine 1.04 Estim Creat Clear Calc 97.03 Est GFR (MDRD) Af Amer 101 Est GFR (MDRD) Non-Af 83 BUN/Creatinine Ratio 17.3 Glucose 101 Hemoglobin A1c Lactic Acid Calcium 8.2 L Total Bilirubin AST ALT Alkaline Phosphatase Total Protein Albumin Globulin Albumin/Globulin Ratio Lipase TSH Free T4 FSH Luteinizing Hormone Prolactin Cortisol Urine Color Urine Clarity Urine pH Ur Specific [place] Urine Protein Urine Glucose (UA) Urine Ketones Urine Occult Blood Urine Nitrite Urine Bilirubin Urine Urobilinogen Ur Leukocyte Esterase Urine RBC Urine WBC Ur Squamous Epith Cells Urine Bacteria Urine Mucus Urine Opiates Screen Urine Methadone Screen Ur Barbiturates Screen Ur Phencyclidine Scrn Ur Amphetamines Screen U Methamphetamin-MDMA U Benzodiazepines Scrn Urine Cocaine Screen U Cannabinoids Screen Ur Drug Screen Comment [place]et[place] Level POC Glucose 99 92 05/03/20 05/03/20 05/03/20 01:57 04:50 04:50 WBC 17.9 H RBC 4.40 L Hgb 13.7 Hct 41.6 MCV 94.5 H MCH 31.1 MCHC 32.9 RDW Std Deviation 42.4 RDW Coeff of [place] 12.3 Plt Count 307 MPV 10.5 Immature Gran % (Auto) 0.300 Neut % (Auto) 81.2 H Lymph % (Auto) 8.4 L [place] % (Auto) 9.8 Eos % (Auto) 0.1 Baso % (Auto) 0.2 Absolute Neuts (auto) 14.6 H Absolute Lymphs (auto) 1.50 Nucleated RBC % 0 Differential Comment SCANNED Diff Path Review May foll PT INR APTT Specimen Type Sample Site pH Bicarbonate Actual POC Total CO2 Base Excess O2 Saturation ABG pCO2 ABG pO2 O2 Delivery Device Blood Gas Notified Whom Sodium 142 Potassium 3.6 Chloride 114 H Carbon Dioxide 23.0 Anion Gap 5 BUN 17 Creatinine 1.08 Estim Creat Clear Calc 93.44 Est GFR (MDRD) Af Amer 97 Est GFR (MDRD) Non-Af 80 BUN/Creatinine Ratio 15.7 Glucose 79 Hemoglobin A1c Lactic Acid Calcium 8.2 L Total Bilirubin 0.60 AST 10 L ALT 17 Alkaline Phosphatase 58 Total Protein 6.5 Albumin 3.5 Globulin 3.0 Albumin/Globulin Ratio 1.2 Lipase TSH Free T4 FSH Luteinizing Hormone Prolactin Cortisol Urine Color Urine Clarity Urine pH Ur Specific [place] Urine Protein Urine Glucose (UA) Urine Ketones Urine Occult Blood Urine Nitrite Urine Bilirubin Urine Urobilinogen Ur Leukocyte Esterase Urine RBC Urine WBC Ur Squamous Epith Cells Urine Bacteria Urine Mucus Urine Opiates Screen Urine Methadone Screen Ur Barbiturates Screen Ur Phencyclidine Scrn Ur Amphetamines Screen U Methamphetamin-MDMA U Benzodiazepines Scrn Urine Cocaine Screen U Cannabinoids Screen Ur Drug Screen Comment [place]et[place] Level POC Glucose 82 05/03/20 04:55 WBC RBC Hgb Hct MCV MCH MCHC RDW Std Deviation RDW Coeff of [place] Plt Count MPV Immature Gran % (Auto) Neut % (Auto) Lymph % (Auto) [place] % (Auto) Eos % (Auto) Baso % (Auto) Absolute Neuts (auto) Absolute Lymphs (auto) Nucleated RBC % Differential Comment Diff Path Review PT INR APTT Specimen Type Sample Site pH Bicarbonate Actual POC Total CO2 Base Excess O2 Saturation ABG pCO2 ABG pO2 O2 Delivery Device Blood Gas Notified Whom Sodium Potassium Chloride Carbon Dioxide Anion Gap BUN Creatinine Estim Creat Clear Calc Est GFR (MDRD) Af Amer Est GFR (MDRD) Non-Af BUN/Creatinine Ratio Glucose Hemoglobin A1c Lactic Acid Calcium Total Bilirubin AST ALT Alkaline Phosphatase Total Protein Albumin Globulin Albumin/Globulin Ratio Lipase TSH Free T4 FSH Luteinizing Hormone Prolactin Cortisol Urine Color Urine Clarity Urine pH Ur Specific [place] Urine Protein Urine Glucose (UA) Urine Ketones Urine Occult Blood Urine Nitrite Urine Bilirubin Urine Urobilinogen Ur Leukocyte Esterase Urine RBC Urine WBC Ur Squamous Epith Cells Urine Bacteria Urine Mucus Urine Opiates Screen Urine Methadone Screen Ur Barbiturates Screen Ur Phencyclidine Scrn Ur Amphetamines Screen U Methamphetamin-MDMA U Benzodiazepines Scrn Urine Cocaine Screen U Cannabinoids Screen Ur Drug Screen Comment Acetone Level POC Glucose 74 Clinical Impression(s) from Imaging Studies Head/Neck CTA 05/02/20 09:08 IMPRESSION: Normal CTA Head and neck with contrast. Electronically Signed: Pop Boyle MD at 9:53 EDT , Service support , Brain MRI 05/02/20 11:59 IMPRESSION: Negative unenhanced MRI of the brain. Electronically Signed: Chilango Mai MD at 19:44 EDT , Service support , Chest X-Ray 05/02/20 12:14 IMPRESSION: Normal x-ray examination of the chest. Electronically Signed: Pop Boyle MD at 12:34 EDT , Service support , Medical Necessity - Tobacco Use Smoking Status: Never smoker Assessment/Plan All Active Problems (Last Updated 05/02/20 @ 10:[address] Abisai Montoya MD) Dysconjugate gaze (Acute) Lactic acidosis (Acute) Hyperkalemia (Acute) DKA (diabetic ketoacidoses) (Acute) RECOMMENDATIONS: 1. Consider neurology consult 2. Discontinue insulin drip 3. Continue dextrose for now with every 6 blood sugar checks until able to take p.o. 4. Likely okay to leave the intensive care unit IMPRESSIONS: 1. DKA secondary to uncontrolled type 1 diabetes mellitus Patient with recent labs showing no DKA. Patient with decreased bicarbonate with anion gap on presentation. Patient was complaining of some nausea on previous presentations. Patient not able to take p.o., but will discontinue insulin drip, add basal insulin with sliding scale and monitor nausea. If patient able to take p.o., transition blood sugars to q. before meals and at bedtime. 2. Disconjugate gaze Work-up for pituitary adenoma was unremarkable. Hormonal levels are within normal limits except for an elevated cortisol. MRI does not show any acute infarcts. Recommend neurologic consultation. Patient is able to open the right eye fully on command making myasthenia gravis unlikely, but would defer to neurologist. 3. Acute kidney injury secondary to dehydration secondary to problem #1 Resolved. Clinical suspicion for dehydration secondary to nausea, vomiting and polyuria. Continue to monitor. 4. Thin build/history of peptic ulcer disease/recurrent ER visits Complicates care, management, recovery and prognosis. Okay to continue with IV Protonix until able to tolerate p.o. No indication for Protonix drip. Inpatient E&M: [id number] [facility] L[facility]
--- NOTE | 2020-05-03 11:18 | PN_ITS ---
Patient Problems: Active and Suspected Problems (Last Updated 05/02/20 @ 10:[address] Abisai Montoya MD) Diplopia (Acute) Lactic acidosis (Acute) Hyperkalemia (Acute) DKA (diabetic ketoacidoses) (Acute) Subjective: Chief complaint: Follow-up after admission for DKA, hyperkalemia, lactic acidosis, diplopia with headache. Patient seen and examined. No acute events overnight. This morning, he is feeling better but still complaining of nausea and vomiting. Still complained of diplopia with headache. Denied numbness or tingling. Denied focal arm or leg weakness. Denied abdominal pain. His vital signs are stable, remained afebrile. - Physical Exam Vitals/I&O's: Vital Signs Temp Pulse Resp BP Pulse Ox 98.3 F 106 H 18 97/63 97 05/03/20 04:00 05/03/20 07:40 05/03/20 07:00 05/03/20 07:00 05/03/20 07:00 Oxygen Delivery Method Room Air Weight: 163 lb 9.328 oz Body Mass Index (BMI) 21.9 Finger Stick Blood Glucose 191 Intake and Output for Last 24 Hours 05/01/20 05/02/20 05/03/20 23:59 23:59 23:59 Intake Total 3586.00 / 3636.00 Output Total 1500 / 1500 0 / 0 Balance 2086.00 / 2136.00 General: Alert, Oriented x3, Cooperative, No apparent distress HEENT: Atraumatic, PERRLA, EOMI, Normocephalic Oral: Moist Mucosa, No Gingival or Mucosal Lesions/ Ulcerations Neck: Supple, No JVD, Negative Carotid Bruits, Trachea Midline, Thyroid Normal Size and Texture Lungs: Clear to auscultation, Normal air movement, No rhonchi, No wheeze, No rales Cardiovascular: Regular rate, Regular Rhythm, Normal S1, Normal S2, No murmurs, PMI Normal Abdomen: Bowel Sounds Present, Soft, Non Tender, Non-Distended, No Hepato-sple nomegaly Extremities: No clubbing, No cyanosis, No edema Skin: No rashes, No breakdown Lymphatic: No Cervical, Supraclavicular, or Inguinal Adenopathy Neurological: Cranial nerves II-XII grossly intact, Motor Exam 5/5 strength throughout, - - Diplopia, closing right eye to avoid diplopia. Psych/Mental Status: Normal Affect, Appropriate, Alert and oriented to time, place, person, mood and affect Laboratory Results 05/02/20 10:20: Hemoglobin A1c 10.7 H 05/02/20 11:00: Acetone Level SMALL H 05/02/20 11:00: TSH 1.49, Free T4 1.10, FSH 2.4, Luteinizing Hormone 1.6, Prolactin 10.4 05/02/20 11:00: Cortisol 94.40 H 05/02/20 11:35: Sodium 139, Potassium 4.8, Chloride 110 H, Carbon Dioxide 12.0 L , Anion Gap 17 H, BUN 19 H, Creatinine 1.25, Estim Creat Clear Calc 80.73, Est GFR (MDRD) Af Amer 82, Est GFR (MDRD) Non-Af 68, BUN/Creatinine Ratio 15.2, Glucose 331 H, Calcium 8.6, Lipase 80 05/02/20 12:19: POC Glucose 394 H 05/02/20 13:10: Specimen Type ART, Sample Site L BRACHIAL, pH 7.17 L*, Bicarbonate Actual 8.4 L, POC Total CO2 9, Base Excess -20 L, O2 Saturation 94 L , ABG pCO2 23.2 L, ABG pO2 89, O2 Delivery Device Room Air, Blood Gas Notified Whom HOSP 05/02/20 13:30: POC Glucose 261 H 05/02/20 15:24: POC Glucose 268 H 05/02/20 15:30: Sodium 140, Potassium 5.6 H, Chloride 111 H, Carbon Dioxide 14.0 L, Anion Gap 15, BUN 18, Creatinine 1.30, Estim Creat Clear Calc 77.63, Est GFR (MDRD) Af Amer 78, Est GFR (MDRD) Non-Af 65, BUN/Creatinine Ratio 13.8, Glucose 268 H, Calcium 8.5 05/02/20 15:30: Lactic Acid 2.2 H* 05/02/20 16:48: POC Glucose 219 H 05/02/20 17:36: POC Glucose 191 H 05/02/20 18:40: POC Glucose 189 H 05/02/20 19:35: POC Glucose 146 H 05/02/20 20:00: Urine Opiates Screen NEGATIVE, Urine Methadone Screen NEGATIVE, Ur Barbiturates Screen NEGATIVE, Ur Phencyclidine Scrn NEGATIVE, Ur Amphetamines Screen NEGATIVE, U Methamphetamin-MDMA NEGATIVE, U Benzodiazepines Scrn NEGATIVE, Urine Cocaine Screen NEGATIVE, U Cannabinoids Screen NEGATIVE, Ur Drug Screen Comment 05/02/20 20:00: Urine Color Yellow, Urine Clarity Clear, Urine pH 5.0, Ur Specific [place] 1.020, Urine Protein 30 H, Urine Glucose (UA) 1000 H, Urine Ketones 150 H, Urine Occult Blood Negative, Urine Nitrite Negative, Urine Bilirubin Negative, Urine Urobilinogen Normal, Ur Leukocyte Esterase Negative, Urine RBC 0 SEEN, Urine WBC 0 SEEN, Ur Squamous Epith Cells 0 SEEN, Urine Bacteria 0 SEEN, Urine Mucus 0 SEEN 05/02/20 20:10: Sodium 144, Potassium 3.9, Chloride 115 H, Carbon Dioxide 19.0 L , Anion Gap 10, BUN 17, Creatinine 1.11, Estim Creat Clear Calc 90.91, Est GFR (MDRD) Af Amer 94, Est GFR (MDRD) Non-Af 77, BUN/Creatinine Ratio 15.3, Glucose 132 H, Calcium 8.5 05/02/20 20:36: POC Glucose 125 H 05/02/20 21:49: POC Glucose 86 05/02/20 22:43: POC Glucose 99 05/02/20 23:43: POC Glucose 92 05/03/20 00:08: Sodium 143, Potassium 3.6, Chloride 116 H, Carbon Dioxide 22.0, Anion Gap 5, BUN 18, Creatinine 1.04, Estim Creat Clear Calc 97.03, Est GFR (MDRD) Af Amer 101, Est GFR (MDRD) Non-Af 83, BUN/Creatinine Ratio 17.3, Glucose 101, Calcium 8.2 L 05/03/20 01:57: POC Glucose 82 05/03/20 04:50: WBC 17.9 H, RBC 4.40 L, Hgb 13.7, Hct 41.6, MCV 94.5 H, MCH 31.1, MCHC 32.9, RDW Std Deviation 42.4, RDW Coeff of [place] 12.3, Plt Count 307, MPV 10.5, Immature Gran % (Auto) 0.300, Neut % (Auto) 81.2 H, Lymph % (Auto) 8.4 L, [place] % (Auto) 9.8, Eos % (Auto) 0.1, Baso % (Auto) 0.2, Absolute Neuts (auto) 14.6 H, Absolute Lymphs (auto) 1.50, Nucleated RBC % 0, Differential Comment SCANNED, Diff Path Review February foll 05/03/20 04:50: Sodium 142, Potassium 3.6, Chloride 114 H, Carbon Dioxide 23.0, Anion Gap 5, BUN 17, Creatinine 1.08, Estim Creat Clear Calc 93.44, Est GFR (MDRD) Af Amer 97, Est GFR (MDRD) Non-Af 80, BUN/Creatinine Ratio 15.7, Glucose 79, Calcium 8.2 L, Total Bilirubin 0.60, AST 10 L, ALT 17, Alkaline Phosphatase 58, Total Protein 6.5, Albumin 3.5, Globulin 3.0, Albumin/Globulin Ratio 1.2 05/03/20 04:55: POC Glucose 74 Current Medications Acetaminophen (Tylenol) 650 mg PO Q6H PRN PRN PRN Reason: Pain Score 1-10/Temp > 100.7 F Last Admin: 05/03/20 11:08 Dose: 650 mg Documented by: Dextrose (D50w Syringe) 0 gm IV X1 PRN; Protocol PRN Reason: Hypoglycemia Enoxaparin Sodium (Lovenox) 40 mg SC DAILY JACK Glucagon () 1 mg IM .X1 PRN PRN Reason: Hypoglycemia Pantoprazole Sodium 40 mg/ (Sodium Chloride) 110 mls @ 330 mls/hr IV Q12 JACK Last Infusion: 05/03/20 10:00 Dose: Infused Documented by: Potassium Chloride/Dextrose/Sod Cl (Kcl 20meq In D5.45ns 1000ml) 1,000 mls @ 150 mls/hr IV .Q6H40M JACK Last Admin: 05/03/20 06:14 Dose: 150 mls/hr Documented by: Insulin Human Lispro (Humalog Kwikpen (Bkc)) 0 unit SC Q6 JACK; Protocol Lidocaine HCl (Xylocaine Viscous) 15 ml PO Q3H PRN PRN Reason: SORE THROAT Last Admin: 05/03/20 09:48 Dose: 15 ml Documented by: Nutritional Formula (Lactose Free) (Glucerna Shake) 120 ml PO 4X/DAY JACK Ondansetron HCl (Zofran) 8 mg IV Q6H PRN PRN PRN Reason: NAUSEA/VOMITING Last Admin: 05/03/20 09:41 Dose: 8 mg Documented by: Sodium Chloride () 10 - 40 ml IV UD PRN PRN Reason: SALINE FLUSH Last Admin: 05/03/20 04:53 Dose: 10 ml Documented by: Clinical Impression(s) from Imaging Studies Brain MRI 05/02/20 11:59 IMPRESSION: Negative unenhanced MRI of the brain. Electronically Signed: Chilango Mai MD at 19:44 EDT , Service support , Chest X-Ray 05/02/20 12:14 IMPRESSION: Normal x-ray examination of the chest. Electronically Signed: Pop Boyle MD at 12:34 EDT , Service support , Medical Necessity - Tobacco Use Smoking Status: Never smoker Assessment/Plan All Active Problems (Last Updated 05/02/20 @ 10:[address] Abisai Montoya MD) Diplopia (Acute) Lactic acidosis (Acute) Hyperkalemia (Acute) DKA (diabetic ketoacidoses) (Acute) This is a 39 years old male patient presented to the emergency room because of recurrent nausea, vomiting, headache and blurry vision on the right eye after 2 ER visits and he was found to have DKA, mild hyperkalemia and is being admitted for treatment and evaluation for headache and blurry vision on the right eye. #1 diabetic ketoacidosis: This morning, he is off IV insulin drip. Anion gap closed, serum bicarb is back to normal. He is on sliding scale, started on ADA diet but has been having nausea not able to eat. Serum electrolytes are within normal limits. Hemoglobin A1c was 10.7%. Plan: Transfer to PCU, continue sliding scale, resume home doses of Lantus if patient able to take p.o. #2 hyperkalemia/dehydration: Secondary to #1 in addition to persistent nausea and vomiting. He was on IV fluids. Potassium is back to normal, serum sodium was normal. BUN is improving, creatinine remained normal. Plan to encourage oral intake. #3 lactic acidosis/leukocytosis: Attributed to DKA. WBC is trending down. No evidence of infection. Chest x-ray showed no acute findings. Urinalysis showed no evidence of acute cystitis. Lactic acid is down to 2.2, improving. Patient remained afebrile. #4 Diplopia/disconjugate gaze/headache: Unclear etiology. Patient still symptomatic, having diplopia, headache with nausea. I doubt meningitis because patient has been afebrile, no neck stiffness. MRI brain was normal, showed no acute infarct or hemorrhage, no masses or nodules. Plan: [facility] tele-neurology consult. #5 type 1 diabetes mellitus: DKA resolved. Currently, he is on sliding scale but he has poor oral intake because of nausea. Hemoglobin A1c was 10.7%. He is on D5 percent along with sliding scale. Plan to resume home Lantus when patient is able to take p.o. #6 history of peptic ulcer disease: Continue Protonix IV. #7 DVT prophylaxis: Subcu Lovenox. This note was generated with [employer] dictation software. It may contain incorrect words, spelling, and punctuation that were not noted in checking the note before signing. Inpatient E&M: 70730 Subs Hosp L2
[2020-05-03 11:20] LABS: Bedside Glucose 170 mg/dL (70-110)
[2020-05-03] MEDS: Insulin Lispro 100 UNIT/ML INSULN.PEN SC ×2 (11:28→17:03)
[2020-05-03 11:52] LABS: Pathologist Review Reviewed
--- NOTE | 2020-05-03 12:42 | NURSING ---
report called to [facility] for transfer to [facility]
--- NOTE | 2020-05-03 15:00 | CASEMGMT ---
Addendum entered by Nadir Henson 05/03/20 16:39: 1615: Reviewed [facility] declination to transfer form with pt and pt declines to transfer and wishes for hospital stay to be billed to [facility]. Declination form signed by pt, copy made and placed on chart, and original returned to pt. Declination form and clinicals faxed to [place] transfer center at this time. Original Note: RN CM DIRECTOR SPORTS CM to room to meet with patient for initial transition planning/care coordination assessment. RN CATA introduced self and role at [facility]. Pt voices understanding and consents to assessment at this time. Pt resting in bed in no distress at this time. Pt is A/O at this time and answers all questions appropriately. Care providers, pharmacy, and demographics verified/updated at this time. PCP: Vianca Olvera NP. Specialists: Furniture Servicer @ [place] Preferred Pharmacy: [facility] Insurance: [place], [place] benefits. [place] is not listed on pt's demographics info. Call placed to pre-cert department and spoke with Sharyn and she was made aware pt states he has [facility] benefits. Living Will/HPOA: Pt does not currently have LW/HCPOA and declines info at this time. Pt made aware that he can contact [facility] as an out-pt and make appt in the future if he decides he would like to. LNOK: Father, Alfonso Singh. Step-mom, Mitzy. Living Arrangements: Independent. 10-yr-old daughter lives with him Transportation: Pt states drives self and states no transportation concerns at this time. Pt's dad will take him home at discharge DME: States has the following DME: glucometer--pt states it is functioning properly and he has all the needed supplies. Pt states no need for further DME at this time. Pt provided /[facility] diabetic clinic info/rac card. Pt wishes to return home and states has no concerns with going home at time of discharge. CM to follow for any dishcarge planning/needs. Pt voices no concerns/needs at this time. Advised pt to ask for CM if any questions/concerns/needs arise. Voices understanding. PLAN: Home. Pablito MCMANUS RN, CM
[2020-05-03 18:16] LABS: Bedside Glucose 169 mg/dL (70-110)
[2020-05-03 23:40] LABS: Bedside Glucose 151 mg/dL (70-110)
[2020-05-04] VITALS (10 sets, daily range): BP systolic 106–127; BP diastolic 63–74; PULSE 62–80; RESP 16–18; TEMP 37.2–37.7; O2SAT 96–98
[2020-05-04] MEDS: Ondansetron 4 MG/2 ML Vial 8 MG IV ×2 (06:26→15:09)
[2020-05-04] MEDS: Acetaminophen 325 MG Tablet 650 MG PO ×2 (06:27→15:08)
[2020-05-04] MEDS: Insulin Lispro 100 UNIT/ML INSULN.PEN SC ×3 (06:35→17:05)
[2020-05-04 06:40] LABS: Bedside Glucose 262 mg/dL (70-110)
[2020-05-04 06:53] LABS: Absolute Lymphocyte Count 1.27 X10^3/uL (0.83-4.51); Absolute Neutrophil Count 7.7 X10^3/uL (2.0-7.7); Basophil# 0.03 X10^3/uL; Basophil% 0.3 % (0-1); Eosinophil# 0.03 X10^3/uL; Eosinophils% 0.3 % (0-5); Hematocrit 37.8 % (40-54); Hemoglobin 12.8 g/dL (13.0-16.5); Lymphocyte # 1.27 X10^3/ul (4.0); Mean Corp Hgb Conc 33.9 g/dL (32-36); Mean Corpuscular Volume 94.5 fL (80-94); Mean Platelet Vol. 10.8 fl (6.2-12.0); Monocyte# 0.78 X10^3/uL; NRBC Flagged by Analyzer 0 % (0-5); Neutrophil # 7.65 X10^3/uL (2.7-7.7); Neutrophil % 78.1 % (47-70); Platelet Count 223 K/mm3 (150-450); RBC Distribution Width CV 12.4 % (11.6-14.6); RBC Distribution Width SD 42.8 fl (35.1-43.9); White Blood Count 9.8 K/mm3 (4.4-11.0)
[2020-05-04 06:54] LABS: Anion Gap 3 (5-15); BUN 11 mg/dL (7-18); BUN/Creat Ratio 12.3 RATIO (10-20); Calcium,Total 8.2 mg/dL (8.5-10.1); Chloride 107 mmol/L (98-107); EST Glomerular Filtration Rate 99 mL/min (>60); Est Glom Filt Rate - Afr Amer 120 mL/min (>60); Estimated Creatinine Clearance 118.56 ml/min; Glucose 250 mg/dL (74-106); Potassium 3.7 mmol/L (3.5-5.1); Sodium Level 137 mmol/L (136-145)
--- NOTE | 2020-05-04 08:52 | PCM.PN.INT ---
Subjective: Patient transferred out of the intensive care unit. No acute issues were reported overnight. Patient did have his neurology consult yesterday and was diagnosed with a 3rd nerve palsy. Patient reports he has not taken much by p.o., but still has some nausea that is tolerable. General: Alert, Oriented x3, Cooperative, No apparent distress, - - No conversational dyspnea. Appears stated age. HEENT: Atraumatic, PERRLA, Normocephalic, - - Still with disconjugate gaze Oral: Moist Mucosa, No Gingival or Mucosal Lesions/ Ulcerations Neck: Supple, No JVD, No Nodes, Trachea Midline Lungs: Clear to auscultation, Normal air movement, No rhonchi, No wheeze, No rales Cardiovascular: Regular rate, Regular Rhythm, Normal S1, Normal S2, No murmurs, No rub noted, No Gallop Abdomen: Bowel Sounds Present, Soft, Non Tender, Non-Distended Extremities: No clubbing, No cyanosis, No edema Skin: No rashes, No breakdown Musculoskeletal: No Tenderness to Palpation of Joints or Extremities Lymphatic: No Cervical, Supraclavicular, or Inguinal Adenopathy Neurological: Cranial nerves II-XII grossly intact, Neuro grossly intact, Motor Exam 5/5 strength throughout Psych/Mental Status: Alert and oriented to time, place, person, mood and affect Vital Signs Temp Pulse Resp BP Pulse Ox 37.4 C H 80 16 106/68 96 05/04/20 08:15 05/04/20 08:15 05/04/20 08:15 05/04/20 08:15 05/04/20 08:15 Oxygen Delivery Method Room Air Weight: 79 kg Body Mass Index (BMI) 21.9 Finger Stick Blood Glucose 191 Intake and Output for Last 24 Hours 05/02/20 05/03/20 05/04/20 23:59 23:59 23:59 Intake Total 3586.00 / 3636.00 4805.01 / 4805.01 Output Total 1500 / 1500 400 / 400 Balance 2086.00 / 2136.00 4405.01 / 4405.01 Labs (Last 48 Hours) 05/02/20 05/02/20 05/02/20 10:20 10:20 10:20 WBC 23.5 H RBC 4.57 L Hgb 14.5 Hct 43.6 MCV 95.4 H MCH 31.7 MCHC 33.3 RDW Std Deviation 40.8 RDW Coeff of [place] 11.8 Plt Count 324 MPV 11.6 Immature Gran % (Auto) 0.600 Neut % (Auto) 90.5 H Lymph % (Auto) 2.4 L [place] % (Auto) 6.3 Eos % (Auto) 0.0 Baso % (Auto) 0.2 Absolute Neuts (auto) 21.2 H Absolute Lymphs (auto) 0.57 L Nucleated RBC % 0 Differential Comment Diff Path Review PT 14.3 INR 1.2 APTT 24.7 Specimen Type Sample Site pH Bicarbonate Actual POC Total CO2 Base Excess O2 Saturation ABG pCO2 ABG pO2 O2 Delivery Device Blood Gas Notified Whom Sodium 135 L Potassium 5.5 H Chloride 102 Carbon Dioxide 12.0 L Anion Gap 21 H BUN 22 H Creatinine 1.21 Estim Creat Clear Calc 88.18 Est GFR (MDRD) Af Amer 85 Est GFR (MDRD) Non-Af 70 BUN/Creatinine Ratio 18.2 Glucose 429 H Hemoglobin A1c Lactic Acid Calcium 9.2 Total Bilirubin 1.10 H AST 17 ALT 19 Alkaline Phosphatase 70 Total Protein 7.4 Albumin 4.3 Globulin 3.1 Albumin/Globulin Ratio 1.4 Lipase TSH Free T4 FSH Luteinizing Hormone Prolactin Cortisol Urine Color Urine Clarity Urine pH Ur Specific Marceline Urine Protein Urine Glucose (UA) Urine Ketones Urine Occult Blood Urine Nitrite Urine Bilirubin Urine Urobilinogen Ur Leukocyte Esterase Urine RBC Urine WBC Ur Squamous Epith Cells Urine Bacteria Urine Mucus Urine Opiates Screen Urine Methadone Screen Ur Barbiturates Screen Ur Phencyclidine Scrn Ur Amphetamines Screen U Methamphetamin-MDMA U Benzodiazepines Scrn Urine Cocaine Screen U Cannabinoids Screen Ur Drug Screen Comment Acetone Level POC Glucose 05/02/20 05/02/20 05/02/20 10:20 10:20 11:00 WBC RBC Hgb Hct MCV MCH MCHC RDW Std Deviation RDW Coeff of [place] Plt Count MPV Immature Gran % (Auto) Neut % (Auto) Lymph % (Auto) [place] % (Auto) Eos % (Auto) Baso % (Auto) Absolute Neuts (auto) Absolute Lymphs (auto) Nucleated RBC % Differential Comment Diff Path Review PT INR APTT Specimen Type Sample Site pH Bicarbonate Actual POC Total CO2 Base Excess O2 Saturation ABG pCO2 ABG pO2 O2 Delivery Device Blood Gas Notified Whom Sodium Potassium Chloride Carbon Dioxide Anion Gap BUN Creatinine Estim Creat Clear Calc Est GFR (MDRD) Af Amer Est GFR (MDRD) Non-Af BUN/Creatinine Ratio Glucose Hemoglobin A1c 10.7 H Lactic Acid 3.8 H* Calcium Total Bilirubin AST ALT Alkaline Phosphatase Total Protein Albumin Globulin Albumin/Globulin Ratio Lipase TSH Free T4 FSH Luteinizing Hormone Prolactin Cortisol Urine Color Urine Clarity Urine pH Ur Specific Marceline Urine Protein Urine Glucose (UA) Urine Ketones Urine Occult Blood Urine Nitrite Urine Bilirubin Urine Urobilinogen Ur Leukocyte Esterase Urine RBC Urine WBC Ur Squamous Epith Cells Urine Bacteria Urine Mucus Urine Opiates Screen Urine Methadone Screen Ur Barbiturates Screen Ur Phencyclidine Scrn Ur Amphetamines Screen U Methamphetamin-MDMA U Benzodiazepines Scrn Urine Cocaine Screen U Cannabinoids Screen Ur Drug Screen Comment Acetone Level SMALL H POC Glucose 05/02/20 05/02/20 05/02/20 11:00 11:00 11:35 WBC RBC Hgb Hct MCV MCH MCHC RDW Std Deviation RDW Coeff of [place] Plt Count MPV Immature Gran % (Auto) Neut % (Auto) Lymph % (Auto) [place] % (Auto) Eos % (Auto) Baso % (Auto) Absolute Neuts (auto) Absolute Lymphs (auto) Nucleated RBC % Differential Comment Diff Path Review PT INR APTT Specimen Type Sample Site pH Bicarbonate Actual POC Total CO2 Base Excess O2 Saturation ABG pCO2 ABG pO2 O2 Delivery Device Blood Gas Notified Whom Sodium 139 Potassium 4.8 Chloride 110 H Carbon Dioxide 12.0 L Anion Gap 17 H BUN 19 H Creatinine 1.25 Estim Creat Clear Calc 80.73 Est GFR (MDRD) Af Amer 82 Est GFR (MDRD) Non-Af 68 BUN/Creatinine Ratio 15.2 Glucose 331 H Hemoglobin A1c Lactic Acid Calcium 8.6 Total Bilirubin AST ALT Alkaline Phosphatase Total Protein Albumin Globulin Albumin/Globulin Ratio Lipase 80 TSH 1.49 Free T4 1.10 FSH 2.4 Luteinizing Hormone 1.6 Prolactin 10.4 Cortisol 94.40 H Urine Color Urine Clarity Urine pH Ur Specific Marceline Urine Protein Urine Glucose (UA) Urine Ketones Urine Occult Blood Urine Nitrite Urine Bilirubin Urine Urobilinogen Ur Leukocyte Esterase Urine RBC Urine WBC Ur Squamous Epith Cells Urine Bacteria Urine Mucus Urine Opiates Screen Urine Methadone Screen Ur Barbiturates Screen Ur Phencyclidine Scrn Ur Amphetamines Screen U Methamphetamin-MDMA U Benzodiazepines Scrn Urine Cocaine Screen U Cannabinoids Screen Ur Drug Screen Comment Acetone Level POC Glucose 05/02/20 05/02/20 05/02/20 12:19 13:10 13:30 WBC RBC Hgb Hct MCV MCH MCHC RDW Std Deviation RDW Coeff of [place] Plt Count MPV Immature Gran % (Auto) Neut % (Auto) Lymph % (Auto) [place] % (Auto) Eos % (Auto) Baso % (Auto) Absolute Neuts (auto) Absolute Lymphs (auto) Nucleated RBC % Differential Comment Diff Path Review PT INR APTT Specimen Type ART Sample Site L BRACHIAL pH 7.17 L* Bicarbonate Actual 8.4 L POC Total CO2 9 Base Excess -20 L O2 Saturation 94 L ABG pCO2 23.2 L ABG pO2 89 O2 Delivery Device Room Air Blood Gas Notified Whom HOSP MD Sodium Potassium Chloride Carbon Dioxide Anion Gap BUN Creatinine Estim Creat Clear Calc Est GFR (MDRD) Af Amer Est GFR (MDRD) Non-Af BUN/Creatinine Ratio Glucose Hemoglobin A1c Lactic Acid Calcium Total Bilirubin AST ALT Alkaline Phosphatase Total Protein Albumin Globulin Albumin/Globulin Ratio Lipase TSH Free T4 FSH Luteinizing Hormone Prolactin Cortisol Urine Color Urine Clarity Urine pH Ur Specific Marceline Urine Protein Urine Glucose (UA) Urine Ketones Urine Occult Blood Urine Nitrite Urine Bilirubin Urine Urobilinogen Ur Leukocyte Esterase Urine RBC Urine WBC Ur Squamous Epith Cells Urine Bacteria Urine Mucus Urine Opiates Screen Urine Methadone Screen Ur Barbiturates Screen Ur Phencyclidine Scrn Ur Amphetamines Screen U Methamphetamin-MDMA U Benzodiazepines Scrn Urine Cocaine Screen U Cannabinoids Screen Ur Drug Screen Comment Acetone Level POC Glucose 394 H 261 H 05/02/20 05/02/20 05/02/20 15:24 15:30 15:30 WBC RBC Hgb Hct MCV MCH MCHC RDW Std Deviation RDW Coeff of [place] Plt Count MPV Immature Gran % (Auto) Neut % (Auto) Lymph % (Auto) [place] % (Auto) Eos % (Auto) Baso % (Auto) Absolute Neuts (auto) Absolute Lymphs (auto) Nucleated RBC % Differential Comment Diff Path Review PT INR APTT Specimen Type Sample Site pH Bicarbonate Actual POC Total CO2 Base Excess O2 Saturation ABG pCO2 ABG pO2 O2 Delivery Device Blood Gas Notified Whom Sodium 140 Potassium 5.6 H Chloride 111 H Carbon Dioxide 14.0 L Anion Gap 15 BUN 18 Creatinine 1.30 Estim Creat Clear Calc 77.63 Est GFR (MDRD) Af Amer 78 Est GFR (MDRD) Non-Af 65 BUN/Creatinine Ratio 13.8 Glucose 268 H Hemoglobin A1c Lactic Acid 2.2 H* Calcium 8.5 Total Bilirubin AST ALT Alkaline Phosphatase Total Protein Albumin Globulin Albumin/Globulin Ratio Lipase TSH Free T4 FSH Luteinizing Hormone Prolactin Cortisol Urine Color Urine Clarity Urine pH Ur Specific Marceline Urine Protein Urine Glucose (UA) Urine Ketones Urine Occult Blood Urine Nitrite Urine Bilirubin Urine Urobilinogen Ur Leukocyte Esterase Urine RBC Urine WBC Ur Squamous Epith Cells Urine Bacteria Urine Mucus Urine Opiates Screen Urine Methadone Screen Ur Barbiturates Screen Ur Phencyclidine Scrn Ur Amphetamines Screen U Methamphetamin-MDMA U Benzodiazepines Scrn Urine Cocaine Screen U Cannabinoids Screen Ur Drug Screen Comment Acetone Level POC Glucose 268 H 05/02/20 05/02/20 05/02/20 16:48 17:36 18:40 WBC RBC Hgb Hct MCV MCH MCHC RDW Std Deviation RDW Coeff of [place] Plt Count MPV Immature Gran % (Auto) Neut % (Auto) Lymph % (Auto) [place] % (Auto) Eos % (Auto) Baso % (Auto) Absolute Neuts (auto) Absolute Lymphs (auto) Nucleated RBC % Differential Comment Diff Path Review PT INR APTT Specimen Type Sample Site pH Bicarbonate Actual POC Total CO2 Base Excess O2 Saturation ABG pCO2 ABG pO2 O2 Delivery Device Blood Gas Notified Whom Sodium Potassium Chloride Carbon Dioxide Anion Gap BUN Creatinine Estim Creat Clear Calc Est GFR (MDRD) Af Amer Est GFR (MDRD) Non-Af BUN/Creatinine Ratio Glucose Hemoglobin A1c Lactic Acid Calcium Total Bilirubin AST ALT Alkaline Phosphatase Total Protein Albumin Globulin Albumin/Globulin Ratio Lipase TSH Free T4 FSH Luteinizing Hormone Prolactin Cortisol Urine Color Urine Clarity Urine pH Ur Specific Marceline Urine Protein Urine Glucose (UA) Urine Ketones Urine Occult Blood Urine Nitrite Urine Bilirubin Urine Urobilinogen Ur Leukocyte Esterase Urine RBC Urine WBC Ur Squamous Epith Cells Urine Bacteria Urine Mucus Urine Opiates Screen Urine Methadone Screen Ur Barbiturates Screen Ur Phencyclidine Scrn Ur Amphetamines Screen U Methamphetamin-MDMA U Benzodiazepines Scrn Urine Cocaine Screen U Cannabinoids Screen Ur Drug Screen Comment Acetone Level POC Glucose 219 H 191 H 189 H 05/02/20 05/02/20 05/02/20 19:35 20:00 20:00 WBC RBC Hgb Hct MCV MCH MCHC RDW Std Deviation RDW Coeff of [place] Plt Count MPV Immature Gran % (Auto) Neut % (Auto) Lymph % (Auto) [place] % (Auto) Eos % (Auto) Baso % (Auto) Absolute Neuts (auto) Absolute Lymphs (auto) Nucleated RBC % Differential Comment Diff Path Review PT INR APTT Specimen Type Sample Site pH Bicarbonate Actual POC Total CO2 Base Excess O2 Saturation ABG pCO2 ABG pO2 O2 Delivery Device Blood Gas Notified Whom Sodium Potassium Chloride Carbon Dioxide Anion Gap BUN Creatinine Estim Creat Clear Calc Est GFR (MDRD) Af Amer Est GFR (MDRD) Non-Af BUN/Creatinine Ratio Glucose Hemoglobin A1c Lactic Acid Calcium Total Bilirubin AST ALT Alkaline Phosphatase Total Protein Albumin Globulin Albumin/Globulin Ratio Lipase TSH Free T4 FSH Luteinizing Hormone Prolactin Cortisol Urine Color Yellow Urine Clarity Clear Urine pH 5.0 Ur Specific Marc[place] 1.020 Urine Protein 30 H Urine Glucose (UA) 1000 H Urine Ketones 150 H Urine Occult Blood Negative Urine Nitrite Negative Urine Bilirubin Negative Urine Urobilinogen Normal Ur Leukocyte Esterase Negative Urine RBC 0 SEEN Urine WBC 0 SEEN Ur Squamous Epith Cells 0 SEEN Urine Bacteria 0 SEEN Urine Mucus 0 SEEN Urine Opiates Screen NEGATIVE Urine Methadone Screen NEGATIVE Ur Barbiturates Screen NEGATIVE Ur Phencyclidine Scrn NEGATIVE Ur Amphetamines Screen NEGATIVE U Methamphetamin-MDMA NEGATIVE U Benzodiazepines Scrn NEGATIVE Urine Cocaine Screen NEGATIVE U Cannabinoids Screen NEGATIVE Ur Drug Screen Comment Acetone Level POC Glucose 146 H 05/02/20 05/02/20 05/02/20 20:10 20:36 21:49 WBC RBC Hgb Hct MCV MCH MCHC RDW Std Deviation RDW Coeff of [place] Plt Count MPV Immature Gran % (Auto) Neut % (Auto) Lymph % (Auto) [place] % (Auto) Eos % (Auto) Baso % (Auto) Absolute Neuts (auto) Absolute Lymphs (auto) Nucleated RBC % Differential Comment Diff Path Review PT INR APTT Specimen Type Sample Site pH Bicarbonate Actual POC Total CO2 Base Excess O2 Saturation ABG pCO2 ABG pO2 O2 Delivery Device Blood Gas Notified Whom Sodium 144 Potassium 3.9 Chloride 115 H Carbon Dioxide 19.0 L Anion Gap 10 BUN 17 Creatinine 1.11 Estim Creat Clear Calc 90.91 Est GFR (MDRD) Af Amer 94 Est GFR (MDRD) Non-Af 77 BUN/Creatinine Ratio 15.3 Glucose 132 H Hemoglobin A1c Lactic Acid Calcium 8.5 Total Bilirubin AST ALT Alkaline Phosphatase Total Protein Albumin Globulin Albumin/Globulin Ratio Lipase TSH Free T4 FSH Luteinizing Hormone Prolactin Cortisol Urine Color Urine Clarity Urine pH Ur Specific Marceline Urine Protein Urine Glucose (UA) Urine Ketones Urine Occult Blood Urine Nitrite Urine Bilirubin Urine Urobilinogen Ur Leukocyte Esterase Urine RBC Urine WBC Ur Squamous Epith Cells Urine Bacteria Urine Mucus Urine Opiates Screen Urine Methadone Screen Ur Barbiturates Screen Ur Phencyclidine Scrn Ur Amphetamines Screen U Methamphetamin-MDMA U Benzodiazepines Scrn Urine Cocaine Screen U Cannabinoids Screen Ur Drug Screen Comment Acetone Level POC Glucose 125 H 86 05/02/20 05/02/20 05/03/20 22:43 23:43 00:08 WBC RBC Hgb Hct MCV MCH MCHC RDW Std Deviation RDW Coeff of [place] Plt Count MPV Immature Gran % (Auto) Neut % (Auto) Lymph % (Auto) [place] % (Auto) Eos % (Auto) Baso % (Auto) Absolute Neuts (auto) Absolute Lymphs (auto) Nucleated RBC % Differential Comment Diff Path Review PT INR APTT Specimen Type Sample Site pH Bicarbonate Actual POC Total CO2 Base Excess O2 Saturation ABG pCO2 ABG pO2 O2 Delivery Device Blood Gas Notified Whom Sodium 143 Potassium 3.6 Chloride 116 H Carbon Dioxide 22.0 Anion Gap 5 BUN 18 Creatinine 1.04 Estim Creat Clear Calc 97.03 Est GFR (MDRD) Af Amer 101 Est GFR (MDRD) Non-Af 83 BUN/Creatinine Ratio 17.3 Glucose 101 Hemoglobin A1c Lactic Acid Calcium 8.2 L Total Bilirubin AST ALT Alkaline Phosphatase Total Protein Albumin Globulin Albumin/Globulin Ratio Lipase TSH Free T4 FSH Luteinizing Hormone Prolactin Cortisol Urine Color Urine Clarity Urine pH Ur Specific Marceline Urine Protein Urine Glucose (UA) Urine Ketones Urine Occult Blood Urine Nitrite Urine Bilirubin Urine Urobilinogen Ur Leukocyte Esterase Urine RBC Urine WBC Ur Squamous Epith Cells Urine Bacteria Urine Mucus Urine Opiates Screen Urine Methadone Screen Ur Barbiturates Screen Ur Phencyclidine Scrn Ur Amphetamines Screen U Methamphetamin-MDMA U Benzodiazepines Scrn Urine Cocaine Screen U Cannabinoids Screen Ur Drug Screen Comment Acetone Level POC Glucose 99 92 05/03/20 05/03/20 05/03/20 01:57 04:50 04:50 WBC 17.9 H RBC 4.40 L Hgb 13.7 Hct 41.6 MCV 94.5 H MCH 31.1 MCHC 32.9 RDW Std Deviation 42.4 RDW Coeff of [place] 12.3 Plt Count 307 MPV 10.5 Immature Gran % (Auto) 0.300 Neut % (Auto) 81.2 H Lymph % (Auto) 8.4 L [place] % (Auto) 9.8 Eos % (Auto) 0.1 Baso % (Auto) 0.2 Absolute Neuts (auto) 14.6 H Absolute Lymphs (auto) 1.50 Nucleated RBC % 0 Differential Comment SCANNED Diff Path Review Reviewed PT INR APTT Specimen Type Sample Site pH Bicarbonate Actual POC Total CO2 Base Excess O2 Saturation ABG pCO2 ABG pO2 O2 Delivery Device Blood Gas Notified Whom Sodium 142 Potassium 3.6 Chloride 114 H Carbon Dioxide 23.0 Anion Gap 5 BUN 17 Creatinine 1.08 Estim Creat Clear Calc 93.44 Est GFR (MDRD) Af Amer 97 Est GFR (MDRD) Non-Af 80 BUN/Creatinine Ratio 15.7 Glucose 79 Hemoglobin A1c Lactic Acid Calcium 8.2 L Total Bilirubin 0.60 AST 10 L ALT 17 Alkaline Phosphatase 58 Total Protein 6.5 Albumin 3.5 Globulin 3.0 Albumin/Globulin Ratio 1.2 Lipase TSH Free T4 FSH Luteinizing Hormone Prolactin Cortisol Urine Color Urine Clarity Urine pH Ur Specific Marceline Urine Protein Urine Glucose (UA) Urine Ketones Urine Occult Blood Urine Nitrite Urine Bilirubin Urine Urobilinogen Ur Leukocyte Esterase Urine RBC Urine WBC Ur Squamous Epith Cells Urine Bacteria Urine Mucus Urine Opiates Screen Urine Methadone Screen Ur Barbiturates Screen Ur Phencyclidine Scrn Ur Amphetamines Screen U Methamphetamin-MDMA U Benzodiazepines Scrn Urine Cocaine Screen U Cannabinoids Screen Ur Drug Screen Comment Acetone Level POC Glucose 82 05/03/20 05/03/20 05/03/20 04:55 11:14 16:54 WBC RBC Hgb Hct MCV MCH MCHC RDW Std Deviation RDW Coeff of [place] Plt Count MPV Immature Gran % (Auto) Neut % (Auto) Lymph % (Auto) [place] % (Auto) Eos % (Auto) Baso % (Auto) Absolute Neuts (auto) Absolute Lymphs (auto) Nucleated RBC % Differential Comment Diff Path Review PT INR APTT Specimen Type Sample Site pH Bicarbonate Actual POC Total CO2 Base Excess O2 Saturation ABG pCO2 ABG pO2 O2 Delivery Device Blood Gas Notified Whom Sodium Potassium Chloride Carbon Dioxide Anion Gap BUN Creatinine Estim Creat Clear Calc Est GFR (MDRD) Af Amer Est GFR (MDRD) Non-Af BUN/Creatinine Ratio Glucose Hemoglobin A1c Lactic Acid Calcium Total Bilirubin AST ALT Alkaline Phosphatase Total Protein Albumin Globulin Albumin/Globulin Ratio Lipase TSH Free T4 FSH Luteinizing Hormone Prolactin Cortisol Urine Color Urine Clarity Urine pH Ur Specific Marceline Urine Protein Urine Glucose (UA) Urine Ketones Urine Occult Blood Urine Nitrite Urine Bilirubin Urine Urobilinogen Ur Leukocyte Esterase Urine RBC Urine WBC Ur Squamous Epith Cells Urine Bacteria Urine Mucus Urine Opiates Screen Urine Methadone Screen Ur Barbiturates Screen Ur Phencyclidine Scrn Ur Amphetamines Screen U Methamphetamin-MDMA U Benzodiazepines Scrn Urine Cocaine Screen U Cannabinoids Screen Ur Drug Screen Comment Acetone Level POC Glucose 74 170 H 169 H 05/03/20 05/04/20 05/04/20 23:20 06:25 06:25 WBC 9.8 RBC 4.00 L Hgb 12.8 L Hct 37.8 L MCV 94.5 H MCH 32.0 MCHC 33.9 RDW Std Deviation 42.8 RDW Coeff of [place] 12.4 Plt Count 223 MPV 10.8 Immature Gran % (Auto) 0.300 Neut % (Auto) 78.1 H Lymph % (Auto) 13.0 L [place] % (Auto) 8.0 Eos % (Auto) 0.3 Baso % (Auto) 0.3 Absolute Neuts (auto) 7.7 Absolute Lymphs (auto) 1.27 Nucleated RBC % 0 Differential Comment Diff Path Review PT INR APTT Specimen Type Sample Site pH Bicarbonate Actual POC Total CO2 Base Excess O2 Saturation ABG pCO2 ABG pO2 O2 Delivery Device Blood Gas Notified Whom Sodium 137 Potassium 3.7 Chloride 107 Carbon Dioxide 27.0 Anion Gap 3 L BUN 11 Creatinine 0.90 Estim Creat Clear Calc 118.56 Est GFR (MDRD) Af Amer 120 Est GFR (MDRD) Non-Af 99 BUN/Creatinine Ratio 12.3 Glucose 250 H Hemoglobin A1c Lactic Acid Calcium 8.2 L Total Bilirubin AST ALT Alkaline Phosphatase Total Protein Albumin Globulin Albumin/Globulin Ratio Lipase TSH Free T4 FSH Luteinizing Hormone Prolactin Cortisol Urine Color Urine Clarity Urine pH Ur Specific Marceline Urine Protein Urine Glucose (UA) Urine Ketones Urine Occult Blood Urine Nitrite Urine Bilirubin Urine Urobilinogen Ur Leukocyte Esterase Urine RBC Urine WBC Ur Squamous Epith Cells Urine Bacteria Urine Mucus Urine Opiates Screen Urine Methadone Screen Ur Barbiturates Screen Ur Phencyclidine Scrn Ur Amphetamines Screen U Methamphetamin-MDMA U Benzodiazepines Scrn Urine Cocaine Screen U Cannabinoids Screen Ur Drug Screen Comment Acetone Level POC Glucose 151 H 05/04/20 06:34 WBC RBC Hgb Hct MCV MCH MCHC RDW Std Deviation RDW Coeff of [place] Plt Count MPV Immature Gran % (Auto) Neut % (Auto) Lymph % (Auto) [place] % (Auto) Eos % (Auto) Baso % (Auto) Absolute Neuts (auto) Absolute Lymphs (auto) Nucleated RBC % Differential Comment Diff Path Review PT INR APTT Specimen Type Sample Site pH Bicarbonate Actual POC Total CO2 Base Excess O2 Saturation ABG pCO2 ABG pO2 O2 Delivery Device Blood Gas Notified Whom Sodium Potassium Chloride Carbon Dioxide Anion Gap BUN Creatinine Estim Creat Clear Calc Est GFR (MDRD) Af Amer Est GFR (MDRD) Non-Af BUN/Creatinine Ratio Glucose Hemoglobin A1c Lactic Acid Calcium Total Bilirubin AST ALT Alkaline Phosphatase Total Protein Albumin Globulin Albumin/Globulin Ratio Lipase TSH Free T4 FSH Luteinizing Hormone Prolactin Cortisol Urine Color Urine Clarity Urine pH Ur Specific Marceline Urine Protein Urine Glucose (UA) Urine Ketones Urine Occult Blood Urine Nitrite Urine Bilirubin Urine Urobilinogen Ur Leukocyte Esterase Urine RBC Urine WBC Ur Squamous Epith Cells Urine Bacteria Urine Mucus Urine Opiates Screen Urine Methadone Screen Ur Barbiturates Screen Ur Phencyclidine Scrn Ur Amphetamines Screen U Methamphetamin-MDMA U Benzodiazepines Scrn Urine Cocaine Screen U Cannabinoids Screen Ur Drug Screen Comment Acetone Level POC Glucose 262 H Medical Necessity - Tobacco Use Smoking Status: Never smoker Assessment/Plan All Active Problems (Last Updated 05/02/20 @ 10:[address] Abisai Montoya MD) Diplopia (Acute) Lactic acidosis (Acute) Hyperkalemia (Acute) DKA (diabetic ketoacidoses) (Acute) RECOMMENDATIONS: 1. Initiate p.o. challenge 2. If patient unable to tolerate p.o., consider inpatient ophthalmology consult versus transfer for neurology evaluation 3. Hemodynamically stable. Will sign off from a critical care perspective IMPRESSIONS: 1. DKA secondary to uncontrolled type 1 diabetes mellitus Patient with recent labs showing no DKA. Patient with decreased bicarbonate with anion gap on presentation. Patient was complaining of some nausea on previous presentations. Patient has done well over the last 24 hours. Some concern that if patient is not able to tolerate p.o., DKA will be recurrent requiring repeated admission. Recommend p.o. challenge while in inpatient. If unable to tolerate, inpatient ophthalmology evaluation versus transfer for neurologic evaluation would be appropriate to avoid repeat hospitalization. Otherwise, patient is hemodynamically stable on room air. Will sign off from a critical care perspective 2. Disconjugate gaze secondary to 3rd nerve palsy Work-up for pituitary adenoma was unremarkable. Hormonal levels are within normal limits except for an elevated cortisol. MRI does not show any acute infarcts or swelling in the sella turcica. Consider ophthalmology evaluation if unable to tolerate p.o. 3. Acute kidney injury secondary to dehydration secondary to problem #1 Resolved. Clinical suspicion for dehydration secondary to nausea, vomiting and polyuria. Continue to monitor. 4. Thin build/history of peptic ulcer disease/recurrent ER visits Complicates care, management, recovery and prognosis. Consider transition of Protonix to p.o. Inpatient E&M: [id number] Subs Hosp L2
--- NOTE | 2020-05-04 09:18 | PCM.DC ---
- Discharge Diagnoses Current Active Problems: Current Active and Chronic Problems (Last Updated 05/02/20 @ 10:[address] Abisai Montoya MD) Diplopia (Acute) Lactic acidosis (Acute) Hyperkalemia (Acute) DKA (diabetic ketoacidoses) (Acute) You will use the following diet at home:: Calorie/Carbohydrate Controlled (specify 1200, 1400, etc) - 1800 matty. Your food should be the consistency of: Regular Discharge Activity: Return to Normal Activity Weight Bearing Status: Weight bearing as tolerated Call your doctor if you observe: Fever of 101 or Higher, Shortness of breath, Dizziness, Fainting spells, Swelling in the ankles, Chest pain, Increased palpitations (irregular heartbeat), Uncontrolled pain Instructions: Using a Blood Sugar Log, How to Check Your Blood Sugar Additional Instructions: 1. Follow-up with neurology in 3 to 4 weeks. 2. Follow-up with ophthalmology in 2 weeks. Allergies/Adverse Reactions: Allergies No Known Allergies Allergy (Verified 05/02/20 09:02) Medications to take at Discharge Insulin Glargine [Lantus SoloStar Pen] 20 units SUBCUT DAILY 09/13/13 Insulin Lispro [Humalog] unit SQ TID 09/13/13 Ondansetron HCl [Zofran] 8 mg PO TID PRN PRN #20 tab 05/04/20 Pantoprazole Sodium [Protonix] 40 mg PO DAILY #30 tab 05/04/20 The following prescriptions were given: Pantoprazole Sodium [Protonix] 40 mg PO DAILY #30 tab Transmission Status: Pending to [id number] Ondansetron HCl [Zofran] 8 mg PO TID PRN PRN #20 tab PRN Reason: Nausea/Vomiting Transmission Status: Pending to [facility] Primary Care Physician: Vianca Olvera NP-C [Primary Care Provider] - Please follow up with your Primary Care Physician in: 1 week. Test Results: Test results from this visit will be discussed in further detail at your follow-up appointment, if applicable.
--- NOTE | 2020-05-04 10:00 | CASEMGMT ---
PETER IVY NOTE: Per Dr Montoya, pt voiced concerns re: going home. PETER IVY to room to talk with pt to discuss his concerns. Pt voices he is planning on staying with his dad @ discharge so he has someone with him, stating, I go into DKA so fast, it comes on so quickly. He states he plans on having his 10-yr-old daughter, who lives w/him, stay with her mother. Pt states his main concern is that he has not been able to drink very many fluids d/t the pain w/swallowing, stating, my esophagus is raw clear down to my stomach. He states I barely can even get a whole Sprite down. Pt did state that Zofran has been helping to prevent worsening of his symptoms. Noted Zofran and Protonix have both e-scribed to [facility] and pt made aware. He states the pharmacist has been in to talk with also about the new medications prescribed and he denies having any questions about them. Dr Montoya made aware of the above pt's concerns re: pain w/swallowing, fluid intake/hydration, and food intake and in to talk with pt at this time. Pablito MCMANUS RN, CM
--- NOTE | 2020-05-04 10:06 | PHA.DC.MC ---
Pharmacy Service has performed discharge medication reconciliation and counseling for this patient. 1. PANTOPRAZOLE 40MG PO DAILY 2. ONDANSETRON 8MG PO TID PRN NAUSEA/VOMITING The patient's discharge medication list was reviewed for discrepancies and discrepancies were resolved. Home Medications Insulin Glargine [Lantus SoloStar Pen] 20 units SUBCUT DAILY 09/13/13 Insulin Lispro [Humalog] unit SQ TID 09/13/13 Ondansetron HCl [Zofran] 8 mg PO TID PRN PRN #20 tab 05/04/20 Pantoprazole Sodium [Protonix] 40 mg PO DAILY #30 tab 05/04/20 The patient was counseled on the following discharge medications and changes in medications for homegoing were reviewed. The Reason for Use, instructions for use, and potential side effects were reviewed for all new medications. The patient's questions regarding all of their medications were answered. The patient was able to verbally demonstrate an understanding of their discharge medications. Patient was counseled by pharmacy technician instructor Buck
[2020-05-04] MEDS: Mag Hydrox/Al Hydrox/Simeth 30 ML UDC PO ×3 (11:14→23:00)
[2020-05-04 11:26] LABS: Bedside Glucose 261 mg/dL (70-110)
--- NOTE | 2020-05-04 13:25 | PN_ITS ---
Patient Problems: Active and Suspected Problems (Last Updated 05/02/20 @ 10:[address] Abisai Montoya MD) Diplopia (Acute) Lactic acidosis (Acute) Hyperkalemia (Acute) DKA (diabetic ketoacidoses) (Acute) Subjective: Chief complaint: Follow-up after admission for DKA, hyperkalemia, lactic acidosis, right oculomotor nerve palsy. Patient seen and examined. No acute events overnight. He still complaining of throat and chest pain upon swallowing or eating. Nausea is improving. Still complaining of diplopia on the right eye. His vital signs are stable. - Physical Exam Vitals/I&O's: Vital Signs Temp Pulse Resp BP Pulse Ox 99.4 F H 65 16 106/68 96 05/04/20 08:15 05/04/20 11:00 05/04/20 08:15 05/04/20 08:15 05/04/20 08:15 Oxygen Delivery Method Room Air Weight: 174 lb 2.643 oz Body Mass Index (BMI) 21.9 Finger Stick Blood Glucose 191 Intake and Output for Last 24 Hours 05/02/20 05/03/20 05/04/20 23:59 23:59 23:59 Intake Total 3586.00 / 3636.00 4805.01 / 4805.01 350 / 350 Output Total 1500 / 1500 400 / 400 775 / 775 Balance 2086.00 / 2136.00 4405.01 / 4405.01 -425 / -425 General: Alert, Oriented x3, Cooperative, No apparent distress HEENT: Atraumatic, PERRLA, EOMI, Normocephalic Oral: Moist Mucosa, No Gingival or Mucosal Lesions/ Ulcerations Neck: Supple, No JVD, Negative Carotid Bruits, Trachea Midline, Thyroid Normal Size and Texture Lungs: Clear to auscultation, Normal air movement, No rhonchi, No wheeze, No rales Cardiovascular: Regular rate, Regular Rhythm, Normal S1, Normal S2, PMI Normal Abdomen: Bowel Sounds Present, Soft, Non Tender, Non-Distended, No Hepato- splenomegaly Extremities: No clubbing, No cyanosis, No edema Skin: No rashes, No breakdown Lymphatic: No Cervical, Supraclavicular, or Inguinal Adenopathy Neurological: Motor Exam 5/5 strength throughout, - - Minimal right eye ptosis, it is down and outward. Psych/Mental Status: Normal Affect, Appropriate Microbiology Past 72 Hours 05/02/20 20:00 Urine, Random Urine Culture - Preliminary Culture exhibits no growth. Laboratory Results 05/03/20 16:54: POC Glucose 169 H 05/03/20 23:20: POC Glucose 151 H 05/04/20 06:25: WBC 9.8, RBC 4.00 L, Hgb 12.8 L, Hct 37.8 L, MCV 94.5 H, MCH 32.0, MCHC 33.9, RDW Std Deviation 42.8, RDW Coeff of [place] 12.4, Plt Count 223, MPV 10.8, Immature Gran % (Auto) 0.300, Neut % (Auto) 78.1 H, Lymph % (Auto) 13.0 L, Harlan % (Auto) 8.0, Eos % (Auto) 0.3, Baso % (Auto) 0.3, Absolute Neuts (auto) 7.7, Absolute Lymphs (auto) 1.27, Nucleated RBC % 0 05/04/20 06:25: Sodium 137, Potassium 3.7, Chloride 107, Carbon Dioxide 27.0, Anion Gap 3 L, BUN 11, Creatinine 0.90, Estim Creat Clear Calc 118.56, Est GFR (MDRD) Af Amer 120, Est GFR (MDRD) Non-Af 99, BUN/Creatinine Ratio 12.3, Glucose 250 H, Calcium 8.2 L 05/04/20 06:34: POC Glucose 262 H 05/04/20 11:17: POC Glucose 261 H Current Medications Acetaminophen (Tylenol) 650 mg PO Q6H PRN PRN PRN Reason: Pain Score 1-10/Temp > 100.7 F Last Admin: 05/04/20 06:27 Dose: 650 mg Documented by: Al Hydroxide/Mg Hydroxide (Mylanta Ii) 30 ml PO Q6H PRN PRN PRN Reason: heartburn, indigestion Last Admin: 05/04/20 11:14 Dose: 30 ml Documented by: Dextrose (D50w Syringe) 0 gm IV X1 PRN; Protocol PRN Reason: Hypoglycemia Enoxaparin Sodium (Lovenox) 40 mg SC DAILY JACK Last Admin: 05/04/20 10:21 Dose: Not Given Documented by: Glucagon () 1 mg IM .X1 PRN PRN Reason: Hypoglycemia Pantoprazole Sodium 40 mg/ (Sodium Chloride) 110 mls @ 330 mls/hr IV Q12 JACK Last Infusion: 05/04/20 11:33 Dose: Infused Documented by: Potassium Chloride/Dextrose/Sod Cl (Kcl 20meq In D5.45ns 1000ml) 1,000 mls @ 75 mls/hr IV .[id number] JACK Last Admin: 05/04/20 02:28 Dose: 75 mls/hr Documented by: Insulin Human Lispro (Humalog Kwikpen (Bkc)) 0 unit SC Q6 JACK; Protocol Last Admin: 05/04/20 11:18 Dose: 2 u Documented by: Lidocaine HCl (Xylocaine Viscous) 15 ml PO Q3H PRN PRN Reason: SORE THROAT Last Admin: 05/04/20 06:26 Dose: 15 ml Documented by: Nutritional Formula (Lactose Free) (Glucerna Shake) 120 ml PO 4X/DAY JACK Last Admin: 05/04/20 10:21 Dose: Not Given Documented by: Ondansetron HCl (Zofran) 8 mg IV Q6H PRN PRN PRN Reason: NAUSEA/VOMITING Last Admin: 05/04/20 06:26 Dose: 8 mg Documented by: Sodium Chloride () 10 - 40 ml IV UD PRN PRN Reason: SALINE FLUSH Last Admin: 05/03/20 04:53 Dose: 10 ml Documented by: Medical Necessity - Tobacco Use Smoking Status: Never smoker Assessment/Plan All Active Problems (Last Updated 05/02/20 @ 10:[address] Abisai Montoya MD) Diplopia (Acute) Lactic acidosis (Acute) Hyperkalemia (Acute) DKA (diabetic ketoacidoses) (Acute) This is a 39 years old male patient presented to the emergency room because of recurrent nausea, vomiting, headache and blurry vision on the right eye after 2 ER visits and he was found to have DKA, mild hyperkalemia and is being admitted for treatment and evaluation for headache and blurry vision on the right eye. #1 diabetic ketoacidosis: Resolved, blood sugar has been in the 200s. He has poor oral intake because of pain upon swallowing. He is only on sliding scale. Anion gap closed, serum bicarb is back to normal. Serum electrolytes are within normal limits. Hemoglobin A1c was 10.7%. He is complaining of pain upon swallowing or drinking. This likely because of retching and vigorous vomiting. Patient has been on IV tonics as well as Xylocaine Viscous. Received 1 dose of Mylanta and he reported mild improvement. Plan to encourage oral intake, discon tinue IV fluids, Mylanta every 6 hours, anticipate discharge home tomorrow. #2 hyperkalemia/dehydration: Secondary to #1 in addition to persistent nausea and vomiting. He was on IV fluids. Potassium is back to normal, serum sodium was normal. BUN and creatinine are back to normal. Plan as above. #3 lactic acidosis/leukocytosis: Attributed to DKA. WBC is trending down. No evidence of infection. Chest x-ray showed no acute findings. Urinalysis showed no evidence of acute cystitis. Lactic acid is down to 2.2, improving. Blood cultures pending. He has been afebrile. 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 [facility] tele-neurology consulted and stated that this is due to uncontrolled diabetes, no specific treatment. They recommended follow-up with neurology and ophthalmology as outpatient. Recommend better control of diabetes mellitus. #5 type 1 diabetes mellitus: DKA resolved. Currently, he is on sliding scale but he has poor oral intake because of nausea. Hemoglobin A1c was 10.7%. Plan to DC IV fluids, resume Lantus when patient is able to take p.o. #6 history of peptic ulcer disease: Change Protonix to p.o. #7 DVT prophylaxis: Subcu Lovenox. This note was generated with [employer] dictation software. It may contain incorrect words, spelling, and punctuation that were not noted in checking the note before signing. Inpatient E&M: 21358 Subs Hosp L2
[2020-05-04] MEDS: 0.9% Saline Lock 10 ML Syringe IV (15:10)
--- NOTE | 2020-05-04 15:11 | CASEMGMT ---
Addendum entered by Nadir Henson 05/05/20 11:30: [facility] made aware pt discharged this morning. Discharge instructions and summary faxed to him at this time. Original Note: PETER IVY NOTE: Call received from [facility], who has been assigned to pt. He is aware pt does not wish to transfer to [facility], that declination to transfer form has been faxed to the [place], and anticipated discharge for tomorrow. He asks for d/c instructions/summary to be faxed to him @ discharge: [facility] PH: [phone]. Ext: [phone] . Pablito MCMANUS RN, CM
[2020-05-04 17:20] LABS: Bedside Glucose 283 mg/dL (70-110)
[2020-05-04] MEDS: Pantoprazole Sodium 40 MG Tablet PO (22:51)
[2020-05-05 00:19] VITALS: BP 122/70; PULSE 71; RESP 16; TEMP 37.2; O2SAT 97
[2020-05-05] MEDS: Insulin Lispro 100 UNIT/ML INSULN.PEN SC ×2 (00:24→06:40)
[2020-05-05 00:30] LABS: Bedside Glucose 310 mg/dL (70-110)
[2020-05-05 03:00] VITALS: PULSE 73
[2020-05-05 06:19] VITALS: BP 127/76; PULSE 72; RESP 16; TEMP 37.1; O2SAT 97
[2020-05-05] MEDS: Mag Hydrox/Al Hydrox/Simeth 30 ML UDC PO (06:40)
[2020-05-05 07:01] LABS: Bedside Glucose 260 mg/dL (70-110)
--- NOTE | 2020-05-05 08:08 | DCINST_ITS ---
- Discharge Diagnoses Current Active Problems: Current Active and Chronic Problems (Last Updated 05/02/20 @ 10:[address] Abisai Montoya MD) Diplopia (Acute) Lactic acidosis (Acute) Hyperkalemia (Acute) DKA (diabetic ketoacidoses) (Acute) You will use the following diet at home:: Calorie/Carbohydrate Controlled (sp ecify 1200, 1400, etc) - 1800 SJ. Your food should be the consistency of: Regular Discharge Activity: Return to Normal Activity Weight Bearing Status: Weight bearing as tolerated Call your doctor if you observe: Fever of 101 or Higher, Shortness of breath, Dizziness, Fainting spells, Swelling in the ankles, Chest pain, Increased palpitations (irregular heartbeat), Uncontrolled pain Instructions: Using a Blood Sugar Log, How to Check Your Blood Sugar Additional Instructions: 1. Follow-up with neurology in 3 to 4 weeks. 2. Follow-up with ophthalmology in 2 weeks. 3. Follow-up with endocrinology in 2 to 3 weeks. Allergies/Adverse Reactions: Allergies No Known Allergies Allergy (Verified 05/02/20 09:02) Medications to take at Discharge Insulin Glargine [Lantus SoloStar Pen] 20 units SUBCUT DAILY 09/13/13 Insulin Lispro [Humalog] unit SQ TID 09/13/13 Ondansetron HCl [Zofran] 8 mg PO TID PRN PRN #20 tab 05/04/20 Pantoprazole Sodium [Protonix] 40 mg PO DAILY #30 tab 05/04/20 Mag Hydrox/Al Hydrox/Simeth [Mylanta II] 30 ml PO Q8H PRN PRN #14 udc 05/05/20 The following prescriptions were given: Mag Hydrox/Al Hydrox/Simeth [Mylanta II] 30 ml PO Q8H PRN PRN #14 udc PRN Reason: Heartburn, indigestion Transmission Status: Pending to [facility] Pantoprazole Sodium [Protonix] 40 mg PO DAILY #30 tab Transmission Status: Received by [facility] Ondansetron HCl [Zofran] 8 mg PO TID PRN PRN #20 tab PRN Reason: Nausea/Vomiting Transmission Status: Received by [facility] Primary Care Physician: Vianca Olvera NP-C [Primary Care Provider] - Please follow up with your Primary Care Physician in: 1 week. Test Results: Test results from this visit will be discussed in further detail at your follow- up appointment, if applicable. Please Follow Up With: Vianca Olvera NP-C
[2020-05-05 08:10] VITALS: BP 113/73; PULSE 79; RESP 16; TEMP 36.6; O2SAT 96
[2020-05-05 08:13] VITALS: PULSE 61
--- NOTE | 2020-05-05 08:43 | CASEMGMT ---
SW spoke with patient and inquired if he would like information on Healthcare Power of Senior Quality Assurance Analyst and Healthcare Living Will. He said he was asked if he would like more information and he said, sure. SW explained documents to patient and he was not interested in getting copies or doing documents. Devika AMARAL MSW
[2020-05-05] MEDS: Pantoprazole Sodium 40 MG Tablet PO (09:39)
[2020-05-05] MEDS: Acetaminophen 325 MG Tablet 650 MG PO (09:42)
--- NOTE | 2020-05-05 10:49 | DS.PCM_ITS ---
Discharge Date and Diagnosis Date of Admission: 05/02/20 Date of Discharge: 05/05/20 - Primary Discharge Diagnosis Acute Problems: #1 diabetic ketoacidosis. 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 #3 dehydration/hypokalemia, resolved. #4 lactic acidosis, attributed to metabolic acidosis secondary to DKA. - Secondary Discharge Diagnosis Chronic Problems: Chronic Problems (Last Updated 05/02/20 @ 10:[address] Abisai Montoya MD) Mass of left breast (Chronic) DM (diabetes mellitus) (Chronic) type 1 Peptic ulcer (Chronic) Hospital Course and Treatment Imaging Results: Clinical Impression(s) from Imaging Studies Head/Neck CTA 05/02/20 09:08 IMPRESSION: Normal CTA Head and neck with contrast. Electronically Signed: Pop Boyle MD at 9:53 EDT , Service support , Brain MRI 05/02/20 11:59 IMPRESSION: Negative unenhanced MRI of the brain. Electronically Signed: Chilango Mai MD at 19:44 EDT , Service support , Chest X-Ray 05/02/20 12:14 IMPRESSION: Normal x-ray examination of the chest. Electronically Signed: Pop Boyle MD at 12:34 EDT , Service support , Dr. Junior, critical care. SOC tele-neurology consult. Operations: None Procedures: EKG Summary of Care Provided: Patient was seen and examined on the day of discharge and appeared to be stable to be discharged home. Pain during swallowing significantly improved. Still having diplopia on the right eye. Denies any more nausea or vomiting. His vital signs are stable. The patient is a 39 year old M presented to the emergency room because of recurrent nausea, vomiting, headache and diplopia on the right eye and he was found to have DKA, mild hyperkalemia, lactic acidosis and right oculomotor nerve palsy. Initially, he was admitted to the intensive care unit for DKA, treated with IV insulin drip and DKA protocol. His anion gap closed and serum bicarb returned back to normal. His blood sugar stabilized. Patient was found to have mild hyperkalemia and dehydration which is attributed to recurrent nausea and vomiting and dehydration. He was treated with IV fluids and his BUN, creatinine and potassium are stable back to normal. He was found to have lactic acid of 3.8 on admission which is attributed to DKA. There was no evidence of infection. Chest x-ray showed no acute findings. Urinalysis showed no evidence of infection. Urine culture showed no growth. Blood culture showed no growth in 48 hours. Patient remained afebrile throughout admission. He did have leukocytosis which was reactive and resolved with. Patient complained of diplopia and headache for which CT scan brain done and showed no acute findings. CTA of the head and neck also done showed no evidence of hemodynamically significant vascular disease or stenosis, no infarct or hemorrhage. MRI brain also done and showed no evidence of acute infarct, hemorrhage, mass or edema. SOC tele-neurology consulted, patient was evaluated and stated that his diplopia and headache as well as ptosis is likely due to right oculomotor nerve palsy due to uncontrolled type 1 diabetes mellitus. They stated that those symptoms of diplopia and ptosis by takes up to weeks to months to resolve and recommended neurology and ophthalmology follow-up as outpatient. Patient complained significant rotation and pain upon swallowing or eating which is attributed to esophageal irritation. He was treated with Protonix, Xylocaine Viscous as well as Mylanta as needed. Symptoms improved. 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 - Physical Exam Vitals/I&O's: Vital Signs Temp Pulse Resp BP Pulse Ox 97.8 F 61 16 113/73 96 05/05/20 08:10 05/05/20 08:13 05/05/20 08:10 05/05/20 08:10 05/05/20 08:10 Oxygen Delivery Method Room Air Weight: 169 lb 12.095 oz Body Mass Index (BMI) 21.9 Finger Stick Blood Glucose 191 Intake and Output for Last 24 Hours 05/03/20 05/04/20 05/05/20 23:59 23:59 23:59 Intake Total 4805.01 / 4805.01 1914 / 1914 240 / 240 Output Total 400 / 400 1850 / 1850 750 / 750 Balance 4405.01 / 4405.01 65 / 65 -510 / -510 General: Alert, Oriented x3, Cooperative, No apparent distress HEENT: Atraumatic, PERRLA, EOMI, Normocephalic Oral: Moist Mucosa, No Gingival or Mucosal Lesions/ Ulcerations Neck: Supple, No JVD, Negative Carotid Bruits, Trachea Midline, Thyroid Normal Size and Texture Lungs: Clear to auscultation, Normal air movement, No rhonchi, No wheeze, No rales Cardiovascular: Regular rate, Regular Rhythm, Normal S1, Normal S2, PMI Normal Abdomen: Bowel Sounds Present, Soft, Non Tender, Non-Distended, No Hepato-spl enomegaly Extremities: No clubbing, No cyanosis, No edema Skin: No rashes, No breakdown Neurological: Motor Exam 5/5 strength throughout, - - Diplopia, right eye ptosis. Psych/Mental Status: Normal Affect, Appropriate Microbiology Past 72 Hours 05/02/20 20:00 Urine, Random Urine Culture - Final Culture exhibits no growth. 05/02/20 12:27 Blood Culture (Wb) - Left Forearm Blood Culture - Preliminary No growth in 48 hours. Laboratory Results 05/04/20 11:17: POC Glucose 261 H 05/04/20 17:02: POC Glucose 283 H 05/05/20 00:23: POC Glucose 310 H 05/05/20 06:39: POC Glucose 260 H Discharge Activity: Return to Normal Activity Weight Bearing Status: Weight bearing as tolerated Call your doctor if you observe: Fever of 101 or Higher, Shortness of breath, Dizziness, Fainting spells, Swelling in the ankles, Chest pain, Increased palpitations (irregular heartbeat), Uncontrolled pain Home Medications: Medications to take at Discharge Insulin Glargine [Lantus SoloStar Pen] 20 units SUBCUT DAILY 09/13/13 Insulin Lispro [Humalog] unit SQ TID 09/13/13 Ondansetron HCl [Zofran] 8 mg PO TID PRN PRN #20 tab 05/04/20 Pantoprazole Sodium [Protonix] 40 mg PO DAILY #30 tab 05/04/20 Mag Hydrox/Al Hydrox/Simeth [Mylanta II] 30 ml PO Q8H PRN PRN #14 udc 05/05/20 Following Prescrptions Were Given to Patient: Mag Hydrox/Al Hydrox/Simeth [Mylanta II] 30 ml PO Q8H PRN PRN #14 udc PRN Reason: Heartburn, indigestion Transmission Status: Received by [facility] Pantoprazole Sodium [Protonix] 40 mg PO DAILY #30 tab Transmission Status: Received by [facility] Ondansetron HCl [Zofran] 8 mg PO TID PRN PRN #20 tab PRN Reason: Nausea/Vomiting Transmission Status: Received by [facility] Primary Care Physician: Vianca Olvera NP-C [Primary Care Provider] - Please follow up with your Primary Care Physician in: 1 week. Please Follow Up With: Vianca Olvera NP-C Patient Instructions: Using a Blood Sugar Log, How to Check Your Blood Sugar Disposition: Home Minutes spent on discharge:: 33 Patient Condition:: Stable Medical Necessity - Tobacco Use Smoking Status: Never smoker Meaningful Use Info Meaningful Use Diagnoses (Choose all that apply): None applicable Inpatient E&M: 24198 [facility] Hosp
--- NOTE | 2020-05-06 15:55 | CASEMGMT ---
PETER IVY Discharge Follow-Up Phone Call. Sharifa: 13 Strata: 3 Discharge Date: 05/05/20 Adm Dx: DKA, diplopia, Headache Call to pt to inquire about how he has been doing since being discharged from the hospital. Pt stated, I'm alright. I'm not the best, but I am able to swallow now. 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 He denies having any questions about the medications or other discharge instructions. He is aware of the appt scheduled w/Vianca Olvera on 05/12. He denies having any concerns/needs. PETER IVY thanked pt for choosing . Pablito MCMANUS RN, CM
== END 2020-05-05 10:19 | disposition home or self-care (01) | DRG 639 ==
LOC: ED 09:40 → ICU 11:22 → PCU 05-03 13:13
PROVIDERS: Internal Medicine Critical Care Medicine; Admitting Provider Hospitalist; Emergency Provider Emergency Medicine; PCP Nurse Practitioner; Visit Provider Hospitalist
DX: E10.10 Type 1 diabetes mellitus with ketoacidosis without coma (principal); E86.0 Dehydration; E87.5 Hyperkalemia; E10.41 Type 1 diabetes mellitus with diabetic mononeuropathy; H49.01 Third [oculomotor] nerve palsy, right eye; Z79.4 Long term (current) use of insulin; D72.829 Elevated white blood cell count, unspecified; Z87.11 Personal history of peptic ulcer disease
CPT/HCPCS: 36415; 36600; 70496; 70498; 70551; 71045; 80048; 80053; 80307; 81001; 82009; 82533; 82803; 82962; 83001; 83002; 83036; 83605; 83690; 84146; 84439; 84443; 85025; 85610; 85730; 87040; 87086; 93005; 97802; 99285; J7030; Q9967; A4216; J2405

== ENCOUNTER 2020-11-22 12:41 | Outpatient (CLI) | payer BC, SELFPAY ==
[2020-11-17 08:50] VITALS: BMI 25.8
[2020-11-22 12:49] VITALS: BP 115/74; PULSE 95; RESP 18; TEMP 36; O2SAT 100; BMI 25.0
[2020-11-22 13:40] VITALS: BP 105/61; PULSE 95; RESP 18; TEMP 37.1; O2SAT 96
[2020-11-22 14:07] VITALS: BP 121/71; PULSE 91; RESP 18; TEMP 37.2; O2SAT 98
[2020-11-22 14:37] VITALS: BP 108/67; PULSE 86; RESP 16; TEMP 37.3; O2SAT 98
[2020-11-22 15:08] VITALS: BP 121/70; PULSE 91; RESP 18; TEMP 37.3; O2SAT 96
== END 2020-11-22 15:10 | disposition home or self-care (01) ==
LOC: MS2OUT 12:43 → MS2 12:45
PROVIDERS: PCP Nurse Practitioner; Referring Provider Nurse Practitioner Acute Care; Visit Provider Nurse Practitioner Acute Care
DX: U07.1 COVID-19 (principal)
CPT/HCPCS: J7050; M0239; Q0245

== ENCOUNTER 2025-09-12 20:19 | Inpatient (IN) | payer OTHER, SELFPAY ==
[2025-09-12 20:20] VITALS: BP 123/79; PULSE 102; RESP 19; TEMP 36.4; O2SAT 98; BMI 25.9
--- NOTE | 2025-09-12 20:33 | CT_ITS ---
PROCEDURE: ABDOMEN/PELVIS W IV CONT ONLY 09/12/2025 REASON FOR EXAM: ABDOMINAL PAIN TECHNIQUE: Procedure Code: [id number] Modality: CT Procedure: ABDOMEN/PELVIS W IV CONT ONLY Coronal and Sagittal reconstruction series were provided. CONTRAST: 100 mL of Isovue 370 One or more dose reduction techniques were used (e.g., Automated exposure control, adjustment of the mA and/or kV according to patient size, use of iterative reconstruction technique. RADIATION DOSE SUMMARY: DLP: 1175 mGycm COMPARISON: None FINDINGS: Left lower lobe ill-defined airspace density may reflect aspiration or early stages of pneumonia. The liver, spleen, pancreas, and both adrenal glands demonstrate no acute findings. Hepatic steatosis. The gallbladder is unremarkable. The stomach is unremarkable. The small bowel loops are not dilated. The appendix is normal. No colonic obstruction. There is no free air or significant free fluid. The kidneys are unremarkable. The urinary bladder is distended. The pelvic structures are intact. There is no solid pelvic mass. No significant lymphadenopathy. The aorta and IVC demonstrate no acute findings. Visualized osseous structures demonstrate no acute abnormality. Ventral abdominal hernia repair mesh. CT/Abdomen/Pelvis W IV Cont ONLY IMPRESSION: Left lower lobe ill-defined airspace density may reflect aspiration or early st ages of pneumonia. No acute intra-abdominal process. Reading Location: [id number]
--- NOTE | 2025-09-12 20:36 | ED.VIS.GI ---
HPI HPI - GI History of Present Illness Chief Complaint: Abd Pain Informant: patient Abdominal Pain/Flank Pain Onset: Yesterday Context: Gradual Onset Timing: Continuous Quality: Cramping Location: Epigastric Worsened by: Food and - (Vomiting) Relieved by: Nothing Nausea/Vomiting/Emesis GI Symptom: Positive for Nausea and Vomiting Quality: Positive for Nonbilious; Negative for Blood streaks, Coffee ground or Hematemesis Diarrhea/Melena/Hematochezia GI Symptom: Negative for Diarrhea, Melena or Hematochezia Associated Symptoms Associated Symptoms: Negative for Dysuria, Frequency or Hematuria Narrative Narrative: Patient presents with abdominal pain, nausea, and vomiting that began yesterday. Patient states it has been constant. Patient describes it as cramping. Patient states it is mainly over the epigastric area. Patient states it is worse with vomiting. Patient states nothing makes it better. Patient states he is vomiting up brown emesis. Patient denies any hematemesis or coffee-ground emesis. Patient denies any diarrhea, melena, or hematochezia. Patient actually states he is constipated. Patient denies any dysuria, frequency, or hematuria. Patient admits to some subjective fevers. [facility] Medical History URI (upper respiratory infection) Influenza A COVID-19 Contact with and (suspected) exposure to other viral communicable diseases Mass of left breast Breast mass Diabetes insipidus Home Medications ?Medication ?Instructions ?Recorded ?Last Taken ?Type insulin glargine 100 unit/mL (3 16 unit subcut DAILY DIABETES 06/12/21 Unknown History mL) subcutaneous pen Allergy/AdvReac Type Severity Reaction Status Date / Time dextromethorphan AdvReac Nausea Verified 09/12/25 20:21 Family History Father Cancer prostate Surgical History History of colonoscopy (~05/2019) History of tonsillectomy (~1984) History of hernia repair (~2007) Social History Smoking Status: Never smoker alcohol intake: current alcohol intake frequency: a few times a week Alcohol type: hard liquor ROS ROS ED Constitutional Constitutional ED: Reports fever(s), subjective and sweats; Denies chills Eyes Eyes: Denies blurry vision or change in vision ENT ENT ED: Denies rhinorrhea or sore throat Cardiovascular Cardiovascular: Denies chest pain or palpitations Respiratory/Chest Respiratory/Chest: Reports cough; Denies dyspnea Gastrointestinal Gastrointestinal: Reports constipation, nausea and vomiting Genitourinary Genitourinary ED: Denies dysuria or hematuria Musculoskeletal Musculoskeletal: Reports back pain and myalgias; Denies neck pain Integumentary Denies abscess or rash Neurologic Neurologic: Reports headache(s); Denies weakness Allergic/Immunologic Allergic/Immunologic ED: Denies mouth swelling or urticaria EXAM Physical Exam Const Vital Signs: 09/12/25 20:20 09/12/25 20:50 09/12/25 22:20 Temperature 97.5 F L Temperature Source Temporal Pulse Rate 102 H 92 100 Respiratory Rate 19 H 15 24 H Blood Pressure 123/79 H 161/100 H Blood Pressure Mean 93 120 Pulse Ox 98 98 94 Oxygen Delivery Method Room Air Positive well nourished and well developed General Appearance ED: well developed and NAD HEENT Reports dry mucous membranes normocephalic and atraumatic Mouth ED: Yes dry mucous membranes Mouth: dry mucous membranes Neck supple and no JVD Resp normal respiratory effort and clear to auscultation bilaterally Cardio regular rate and regular rhythm GI non-distended Palpation: soft and tender epigastric; Negative for guarding or rebound tenderness present Neuro CN's II-XII intact bilaterally, moves all extremities and no sensory deficits noted Sensorium / Orientation: alert Motor Exam: strength 5/5 throughout Psych mental status grossly normal MDM MDM MDM Narrative Medical decision making narrative: Differential diagnosis includes diabetic ketoacidosis, hyperosmolar hyperglycemic nonketotic state, dehydration, electrolyte abnormality, bowel obstruction, perforation, pancreatitis, peptic ulcer disease, duodenal ulcer, gastritis, pyelonephritis, and viral illness. EKG will be obtained to assess for cardiac dysrhythmia and cardiac ischemia. CT scan of the abdomen pelvis will be obtained to assess for bowel obstruction, perforation, pancreatitis, and pyelonephritis. CBC will be obtained to assess for leukocytosis and anemia. Comprehensive metabolic profile will be obtained to assess for hepatic function, renal function, and electrolyte abnormality lipase will be obtained to assess for pancreatitis. Urinalysis will be obtained to assess for urinary tract infection, hematuria, glucosuria. Beta hydroxybutyrate will be obtained to assess for diabetic ketoacidosis. Lactate will be obtained to assess for lactic acidosis. History & Record Review Additional record(s) reviewed:: Prior outpatient record, Prior ED visit and Prior labs Lab Data Attestation: I reviewed the patient's lab results. Lab results narrative: CBC was reviewed and was within normal limits. Comprehensive metabolic profile was reviewed. CO2 was low at 11.3 and anion gap was elevated at 31. BUN was slightly elevated at 29 and creatinine was 1.68. Glucose was elevated at 338. Lipase was reviewed and was normal at 37. Beta hydroxybutyrate was reviewed and was elevated at 8.8. Urinalysis was reviewed. Urine glucose was 1000. Urine ketones were 150. There is no evidence of urinary tract infection or hematuria. Labs: Laboratory Results - last 24 hr 09/12/25 09/12/25 09/12/25 20:29 20:45 21:30 WBC 10.5 RBC 4.84 Hgb 15.6 Hct 45.7 MCV 94.4 H MCH 32.2 H MCHC 34.1 RDW Std Deviation 43.6 RDW Coeff of [place] 12.5 Plt Count 332 MPV 11.1 Immature Gran % (Auto) 0.400 Neut % (Auto) 85.5 H Lymph % (Auto) 9.8 L [place] % (Auto) 4.1 Eos % (Auto) 0.0 Baso % (Auto) 0.2 Absolute Neuts (auto) 9.0 H Absolute Lymphs (auto) 1.03 Nucleated RBC % 0 Sodium 135 Potassium 4.9 Chloride 93 L Carbon Dioxide 11.3 L Anion Gap 31 H BUN 29 H Creatinine 1.68 H Estim Creat Clear Calc 62.09 Est GFR (MDRD) Non-Af 50 L BUN/Creatinine Ratio 17.4 Glucose 338 H Calcium 10.0 Phosphorus 6.4 H Magnesium 2.6 H Total Bilirubin 0.47 AST 20 ALT 20 Alkaline Phosphatase 105 Total Protein 8.4 Albumin 4.5 Globulin 3.9 Albumin/Globulin Ratio 1.1 Lipase 37 b-Hydroxybutyric mmol/L 8.8 H Urine Color Yellow Urine Clarity Clear Urine pH 5.0 Ur Specific [place] 1.025 Urine Protein 30 H Urine Glucose (UA) 1000 H Urine Ketones 150 A* Urine Occult Blood 10 H Urine Nitrite Negative Urine Bilirubin Negative Urine Urobilinogen Normal Ur Leukocyte Esterase Negative Urine RBC 0-5 SEEN Urine WBC 0-5 SEEN Ur Squamous Epith Cells 0 SEEN Urine Bacteria 0 SEEN Urine Mucus 0 SEEN POC Glucose 293 H 09/12/25 22:03 WBC RBC Hgb Hct MCV MCH MCHC RDW Std Deviation RDW Coeff of [place] Plt Count MPV Immature Gran % (Auto) Neut % (Auto) Lymph % (Auto) [facility] % (Auto) Eos % (Auto) Baso % (Auto) Absolute Neuts (auto) Absolute Lymphs (auto) Nucleated RBC % Sodium 134 Potassium 5.3 H Chloride 95 L Carbon Dioxide 11.1 L Anion Gap 28 H BUN Creatinine Estim Creat Clear Calc Est GFR (MDRD) Non-Af BUN/Creatinine Ratio Glucose Calcium Phosphorus Magnesium Total Bilirubin AST ALT Alkaline Phosphatase Total Protein Albumin Globulin Albumin/Globulin Ratio Lipase b-Hydroxybutyric mmol/L Urine Color Urine Clarity Urine pH Ur Specific [place] Urine Protein Urine Glucose (UA) Urine Ketones Urine Occult Blood Urine Nitrite Urine Bilirubin Urine Urobilinogen Ur Leukocyte Esterase Urine RBC Urine WBC Ur Squamous Epith Cells Urine Bacteria Urine Mucus POC Glucose ABG Data Attestation: I personally reviewed and interpreted this ABG as follows: Interpretation: Venous blood gas was obtained. pH was 7.237, pCO2 was 30.8, pO2 was 28.8, bicarb was 13.1. ABG results: ABG 09/12/25 20:51 Specimen Type KARINA Sample Site Not entered VBG pH 7.24 L VBG pO2 29 VBG HCO3 13 L VBG Total CO2 14 L VBG O2 Sat (Calc) 45 L VBG Base Excess -14 L POC Mix VBG pCO2 Pt Tmp 30.8 L O2 Delivery Device Room Air Radiography Diagnostic Testing: Clinical Impression(s) from Imaging Studies Abdomen/Pelvis CT 09/12/25 20:33 IMPRESSION: Left lower lobe ill-defined airspace density may reflect aspiration or early stages of pneumonia. No acute intra-abdominal process. Reading Location: [facility] CT scan of the abdomen and pelvis was obtained. There is no acute intra-abdominal process noted. There is no free air or free fluid. There is a left lower lobe airspace density which may reflect early pneumonia. This was interpreted by the radiologist. I also independently reviewed the images. I did not see any evidence of bowel obstruction or perforation. I did not see any free air or free fluid. EKG Initial EKG: Attestation: I personally reviewed and interpreted this EKG as follows: Interpretation: Sinus Rhythm (92) and No Acute Injury Pattern Comments: EKG was obtained. On my independent interpretation, it showed a normal sinus rhythm with a rate of 92. MO interval, QRS interval, and QTc intervals were all normal. [place] was normal. There are no acute ST or T wave changes. Prior EKG tracings: available for review Prior: Unchanged (05/02/2020) Management Discussion w/another healthcare provider: Hospitalist Treatment and Re-Evaluation :: Patient was given IV fluids and Zofran. Patient was advised of his findings. Patient was started on insulin drip. Case was discussed with hospitalist. He will admit the patient to ICU. Patient and family understood and were agreeable with the plan. All questions were answered. Critical Care Time Critical Care Time: Yes Critical care time (excluding procedures): 30-74 minutes (37), Including time spent:, Discussing w/Patient &/or Family/[employer], Discussing w/Consultants, Arranging Admission or Transfer and Performing Direct Patient Care at Bedside Discharge Plan Dx/Rx/DC Orders Clinical Impression: DKA (diabetic ketoacidoses), DM (diabetes mellitus), Metabolic acidosis, Hyperkalemia Disposition Disposition: Acute Care [facility]
--- NOTE | 2025-09-12 20:45 | EKG12_ITS ---
Test Reason : DYSRHYTHMIA Blood Pressure : */* mmHG Vent. Rate : 92 BPM Atrial Rate : 92 BPM P-R Int : 172 ms QRS Dur : 76 ms QT Int : 374 ms P-R-T Axes : 44 30 46 degrees QTcB Int : 462 ms Normal sinus rhythm Normal ECG When compared with ECG of 02-May-2020 09:16, No significant change was found Confirmed by Lukas Tovar ([id number]), video editor LAURA FROST ([id number]) on 09/13/2025 1:53:33 PM Referred By: Confirmed By: Lukas Tovar
[2025-09-12 20:50] VITALS: PULSE 92; RESP 15; O2SAT 98
[2025-09-12 20:53] LABS: Hematocrit 45.7 % (40-54); Hemoglobin 15.6 g/dL (13.0-16.5); Immature Granulocytes Count 0.040 X10^3/uL (0.0-0.0); Mean Corp Hgb Conc 34.1 g/dL (32-36); Mean Corpuscular Volume 94.4 fL (80-94); Mean Platelet Vol. 11.1 fl (6.2-12.0); NRBC Flagged by Analyzer 0 % (0-5); Platelet Count 332 K/mm3 (150-450); RBC Distribution Width CV 12.5 % (11.6-14.6); RBC Distribution Width SD 43.6 fl (35.1-43.9); Red Blood Count 4.84 M/mm3 (4.6-6.2); White Blood Count 10.5 K/mm3 (4.4-11.0)
[2025-09-12 20:54] LABS: SITE Not entered; VBG BASE EXCESS -14 mmol/L (-1.0-3.5); VBG PO2 29 mmHg (25-40); VBG SO2 45 % (50-70); VBG TCO2 14 mmol/L (23-33)
[2025-09-12] MEDS: 0.9% Normal Saline (1000mL) 1,000 ML 1000 ML IV ×2 (20:54→22:06)
[2025-09-12 21:13] LABS: AST(SGOT) 20 U/L (<=37); Alanine Aminotransfer ALT/SGPT 20 U/L (<=46); Albumin, Serum 4.5 g/dL (3.5-5.0); Alkaline Phosphatase 105 U/L (40-129); Anion Gap 31 (5-15); BUN 29 mg/dL (4-19); BUN/Creat Ratio 17.4 RATIO (10-20); Calcium,Total 10.0 mg/dL (7.6-11.0); Carbon Dioxide 11.3 mmol/L (21.0-32.0); Chloride 93 mmol/L (98-108); Estimated Creatinine Clearance 62.09 ml/min (50-250); Globulin 3.9 g/dL (2.2-4.2); Glucose 338 mg/dL (70-99); Lipase 37 U/L (13-75); Potassium 4.9 mmol/L (3.3-5.1)
[2025-09-12 21:24] LABS: BETA-HYDROXYBUTYRATE 8.8 mmol/L (0.0-0.3)
[2025-09-12 21:40] LABS: Mucous, Urine 0 SEEN /hpf (<or=2+); Squamous Epithelial Cells - UA 0 SEEN /hpf (0-5)
[2025-09-12 21:42] LABS: Color, Urine Yellow (Yellow); Glucose, Dipstick 1000 mg/dl (Normal); Leukocyte Esterase-Dipstick Negative /ul (Negative); Nitrite-Dipstick Negative (Negative); Occult Blood-Urine 10 /ul (Negative); Protein-Dipstick 30 mg/dl (Negative); Specific Gravity, Urine 1.025 (1.002-1.030); Urine Bilirubin Dipstick Negative (Negative)
[2025-09-12 22:10] LABS: Ketone-Dipstick 150 mg/dl (Negative)
[2025-09-12 22:18] LABS: Red Blood Cells-Urine 0-5 SEEN /hpf (0-5)
[2025-09-12 22:20] VITALS: BP 161/100; PULSE 100; RESP 24; O2SAT 94
[2025-09-12 22:28] LABS: Anion Gap 28 (5-15); Carbon Dioxide 11.1 mmol/L (21.0-32.0); Chloride 95 mmol/L (98-108); Potassium 5.3 mmol/L (3.3-5.1)
[2025-09-12 22:29] LABS: Magnesium 2.6 mg/dL (1.5-2.2)
--- NOTE | 2025-09-12 22:58 | RAD_ITS ---
PROCEDURE: CHEST 1 VIEW (PORTABLE) 09/12/2025 REASON FOR EXAM: PNEUMONIA TECHNIQUE: Frontal view of the chest. COMPARISON: 05/02/2020 FINDINGS: No focal consolidation. No pleural effusion or pneumothorax. Cardiac silhouette is within normal limits. No acute fractures. RAD/Chest 1 View (Portable) IMPRESSION: No focal consolidations. Reading Location: [id number]
[2025-09-12] MEDS: Insulin Lispro 100 UNIT in 0.9% Normal Saline (100mL Bag) 99 ML CONT INF (23:18)
--- NOTE | 2025-09-12 23:24 | ED.RN ---
report called to Freedom GREEN, receiving nurse.
[2025-09-12 23:38] VITALS: BMI 24.6
[2025-09-12 23:43] VITALS: BP 161/100; PULSE 100; RESP 24; TEMP 36.4; O2SAT 94
[2025-09-12 23:45] VITALS: BP 165/87; PULSE 101; RESP 23; TEMP 36.8; O2SAT 95
[2025-09-13] VITALS (30 sets, daily range): BP systolic 94–166; BP diastolic 44–98; PULSE 67–107; RESP 13–24; TEMP 36.6–37.1; O2SAT 93–99; BMI 24.6
--- NOTE | 2025-09-13 00:53 | PCM.HP.STD ---
HPI - General General Date of Admission: 09/11/25 Date of Service: 10/11/25 Chief Complaint: Vomiting HPI Narrative OMAR NAVA, is a 44 M who presents new onset vomiting, nausea and abdominal pain. He was found to have DKA Patient has history of type 1 diabetes on insulin, came into the ED with 1 day history of severe abdominal pain, nausea and vomiting, these were preceded by cold symptoms and cough. Denies any fever, chills, dysuria or diarrhea. No chest pain but he has mild shortness of breath. Patient has prior history of DKA's. He is compliant with his insulin but he states he could not take it for the last 2 days because of feeling sick. In the ED his vitals were within normal except for tachypnea. Afebrile. CBC within normal except for lymphopenia. Blood sugar was 338, anion gap 31, bicarbonate 11, creatinine 1.68 from normal baseline. VBG showed pH 7.24. Beta hydroxybutyrate was 8.8 CT abdomen showed no acute abdominal pathology but showed left lower lung airspace disease possibly aspiration. Patient denies losing consciousness but he has excessive vomiting while supine in the ED [facility] Medical History URI (upper respiratory infection) Influenza A COVID-19 Contact with and (suspected) exposure to other viral communicable diseases Mass of left breast Breast mass Diabetes insipidus Home Medications ?Medication ?Instructions ?Recorded ?Last Taken ?Type insulin glargine 100 unit/mL (3 25 unit subcut DAILY DIABETES 06/12/21 Unknown History mL) subcutaneous pen insulin lispro 100 unit/mL 9 unit subcut TIDCM Diabetes 09/12/25 Unknown History subcutaneous pen Allergy/AdvReac Type Severity Reaction Status Date / Time dextromethorphan AdvReac Nausea Verified 09/12/25 20:21 Family History Father Cancer prostate Surgical History History of colonoscopy (~05/2019) History of tonsillectomy (~1984) History of hernia repair (~2007) Social History Smoking Status: Never smoker alcohol intake: current alcohol intake frequency: a few times a week Alcohol type: hard liquor ROS Constitutional Constitutional: Reports poor appetite; Denies fever(s) ENT HEENT: Reports none Cardiovascular Cardiovascular: Denies chest pain or dyspnea Respiratory/Chest Respiratory/Chest: Reports cough; Denies productive cough or wheezing Gastrointestinal Gastrointestinal: Reports abdominal pain, constipation, nausea and vomiting Genitourinary Genitourinary: Reports urinary frequency; Denies dysuria Musculoskeletal Musculoskeletal: Denies arthralgias or myalgias Integumentary Integumentary: Reports none Neurologic Neurologic: Denies abnormal speech, dizziness, focal weakness, loss of vision or numbness Hematologic/Lymphatic Hematologic/Lymphatic: Reports none Vital Signs Vital Signs Vital Signs: 09/12/25 20:20 09/12/25 20:50 09/12/25 22:20 Temperature 97.5 F L Temperature Source Temporal Pulse Rate 102 H 92 100 Respiratory Rate 19 H 15 24 H Respiratory Effort Respiratory Depth Respiratory Pattern Blood Pressure 123/79 H 161/100 H Blood Pressure Mean 93 120 Blood Pressure Source Blood Pressure Position Blood Pressure Location Pulse Ox 98 98 94 Oxygen Delivery Method Room Air 09/12/25 23:43 09/12/25 23:45 09/13/25 00:00 Temperature 97.5 F L 98.2 F Temperature Source Oral Pulse Rate 100 101 H 98 Respiratory Rate 24 H 23 H 22 H Respiratory Effort Respiratory Depth Respiratory Pattern Blood Pressure 161/100 H 165/87 H 150/83 H Blood Pressure Mean 120 113 105 Blood Pressure Source Monitor Monitor Blood Pressure Position Semi-Fowlers Semi-Fowlers Blood Pressure Location Right Arm Right Arm Pulse Ox 94 95 96 Oxygen Delivery Method Room Air Room Air 09/13/25 00:00 09/13/25 00:00 09/13/25 00:15 Temperature Temperature Source Pulse Rate 95 90 Respiratory Rate 22 H 22 H Respiratory Effort Normal Respiratory Depth Normal Respiratory Pattern Tachypnea Blood Pressure 135/73 H Blood Pressure Mean 93 Blood Pressure Source Monitor Blood Pressure Position Semi-Fowlers Blood Pressure Location Right Arm Pulse Ox 99 Oxygen Delivery Method Room Air Room Air Weight Weight: 84.7 kg Body Mass Index (BMI) 24.6 Physical Exam Const alert and oriented x3 Constitutional Narrative: In distress Orientation / Consciousness: lethargic HEENT normocephalic and head/scalp atraumatic Eyes EOMs intact bilaterally; Negative for no scleral icterus Neck supple Resp normal respiratory effort Resp Narrative: Slightly diminished air entry in the left lower lung Cardio regular rhythm; Negative for no murmurs Cardio Narrative: Tachycardic GI Negative for non-tender GI Narrative: Diminished bowel sounds no CVA tenderness Extremity no joint enlargement and no pedal edema Skin no rashes or lesions noted Neuro oriented x3 and moves all extremities Results Lab / Micro Data 09/12/25 20:45 09/12/25 22:03 Labs: Laboratory Results - last 24 hr 09/12/25 20:29: POC Glucose 293 H 09/12/25 20:45: WBC 10.5, RBC 4.84, Hgb 15.6, Hct 45.7, MCV 94.4 H, MCH 32.2 H, MCHC 34.1, RDW Std Deviation 43.6, RDW Coeff of [place] 12.5, Plt Count 332, MPV 11.1, Immature Gran % (Auto) 0.400, Neut % (Auto) 85.5 H, Lymph % (Auto) 9.8 L, [place] % (Auto) 4.1, Eos % (Auto) 0.0, Baso % (Auto) 0.2, Absolute Neuts (auto) 9.0 H, Absolute Lymphs (auto) 1.03, Nucleated RBC % 0, Sodium 135, Potassium 4.9, Chloride 93 L, Carbon Dioxide 11.3 L, Anion Gap 31 H, BUN 29 H, Creatinine 1.68 H, Estim Creat Clear Calc 62.09, Est GFR (MDRD) Non-Af 50 L, BUN/Creatinine Ratio 17.4, Glucose 338 H, Calcium 10.0, Phosphorus 6.4 H, Magnesium 2.6 H, Total Bilirubin 0.47, AST 20, ALT 20, Alkaline Phosphatase 105, Total Protein 8.4, Albumin 4.5, Globulin 3.9, Albumin/Globulin Ratio 1.1, Lipase 37, b-Hydroxybutyric mmol/L 8.8 H 09/12/25 21:30: Urine Color Yellow, Urine Clarity Clear, Urine pH 5.0, Ur Specific [place] 1.025, Urine Protein 30 H, Urine Glucose (UA) 1000 H, Urine Ketones 150 A*, Urine Occult Blood 10 H, Urine Nitrite Negative, Urine Bilirubin Negative, Urine Urobilinogen Normal, Ur Leukocyte Esterase Negative, Urine RBC 0-5 SEEN, Urine WBC 0-5 SEEN, Ur Squamous Epith Cells 0 SEEN, Urine Bacteria 0 SEEN, Urine Mucus 0 SEEN 09/12/25 22:03: Sodium 134, Potassium 5.3 H, Chloride 95 L, Carbon Dioxide 11.1 L, Anion Gap 28 H 09/13/25 00:02: POC Glucose 287 H Micro: Microbiology 09/12/25 23:14 Mucosa - Nasopharyngeal Coronavirus COVID-19 PCR - Final SARS-CoV-2 (COVID 19) ABG Data ABG results: ABG 09/12/25 20:51 Specimen Type KARINA Sample Site Not entered VBG pH 7.24 L VBG pO2 29 VBG HCO3 13 L VBG Total CO2 14 L VBG O2 Sat (Calc) 45 L VBG Base Excess -14 L POC Mix VBG pCO2 Pt Tmp 30.8 L O2 Delivery Device Room Air Imaging Radiology Impression Abdomen/Pelvis CT 09/12/25 20:33 IMPRESSION: Left lower lobe ill-defined airspace density may reflect aspiration or early stages of pneumonia. No acute intra-abdominal process. Reading Location: [facility] Chest X-Ray 09/12/25 22:58 IMPRESSION: No focal consolidations. Reading Location: [facility] Assessment & Plan Assessment/Plan (1) DKA (diabetic ketoacidoses): QUALIFIERS: Diabetes mellitus type: type 1 Diabetes mellitus complication detail: without coma Qualified Code(s): E10.10 - Type 1 diabetes mellitus with ketoacidosis without coma (2) COVID-19: (3) Left lower lobe pneumonia: QUALIFIERS: Pneumonia type: aspiration pneumonia Aspiration pneumonia type: due to gastric secretions Qualified Code(s): J69.0 - Pneumonitis due to inhalation of food and vomit (4) POLLO (acute kidney injury): PLAN: Plan 44-year-old man with type 1 diabetes comes in with DKA, positive COVID-19 infection not requiring oxygen and left lower base opacity possibly aspiration Admit to ICU DKA: Likely triggered by infection which is COVID-19 Received 2 L NS boluses. Order Ringer lactate boluses as well which is shown to be better for DKA Insulin drip per protocol. Order half saline with dextrose because his corrected serum sodium above 135 Hold on potassium replacement as his potassium came back 5.3 Repeat labs electrolytes every 4 hours. COVID-19 infection He had cold symptoms and cough but not requiring oxygen. Chest x-ray is clear without bilateral infiltrates but CT showed left lower lobe opacity unlikely to be COVID-19 Left lower lobe opacity: Possible aspiration given the excessive vomiting while lying supine and lethargy IV Rocephin. No indication for anaerobic coverage even with aspiration pneumonia POLLO: Likely prerenal azotemia from intravascular volume depletion Sepsis Attestation Sepsis Attestation: Sepsis Ruled Out Charges/Coding Visit Charges Inpatient E&M: 80342 Init Hosp L3
[2025-09-13] MEDS: Lactated Ringers 1,000 ML 999 ML IV (01:07)
[2025-09-13] MEDS: Ceftriaxone 2 GM in 0.9% Normal Saline (50mL MB+) 50 ML IV ×2 (01:07→20:57)
[2025-09-13] MEDS: 0.9% Normal Saline (250mL Bag) 250 ML 15 ML IV (01:07)
[2025-09-13] MEDS: 0.9% Saline Lock 10 ML Syringe IV ×3 (01:13→06:31)
[2025-09-13] MEDS: Dext 5%-0.45% NS 1,000 ML 150 ML IV ×2 (02:19→09:21)
[2025-09-13 03:02] LABS: Magnesium 2.3 mg/dL (1.5-2.2)
[2025-09-13 03:16] LABS: Anion Gap 23 (5-15); Carbon Dioxide 12.9 mmol/L (21.0-32.0); Chloride 103 mmol/L (98-108); Potassium 4.6 mmol/L (3.3-5.1)
[2025-09-13 07:01] LABS: Magnesium 2.3 mg/dL (1.5-2.2)
[2025-09-13 07:02] LABS: Anion Gap 13 (5-15); Carbon Dioxide 17.9 mmol/L (21.0-32.0); Chloride 106 mmol/L (98-108); Potassium 4.3 mmol/L (3.3-5.1)
--- NOTE | 2025-09-13 07:10 | PN.HOSP_ITS ---
Reason for Visit Chief Complaint: Vomiting Subjective Subjective Patient is a 44-year-old gentleman with history of diabetes mellitus type 1 presented with nausea vomiting as well as hyperglycemia and assessment of diabetic ketoacidosis made admitted to a monitored bed for subsequent management. Patient tested positive for COVID Objective Data Objective Data Vital Signs: Vital Signs Temp Pulse Resp BP Pulse Ox O2 Del Method 98.7 F 95 16 144/71 H 94 Room Air 09/13/25 06:28 09/13/25 06:28 09/13/25 06:28 09/13/25 06:28 09/13/25 06:28 09/13/25 06:28 Oxygen Delivery Method Room Air Weight: 84.7 kg Body Mass Index (BMI) 24.6 Intake & Output: Intake and Output for Last 24 Hours 09/11/25 09/12/25 09/13/25 23:59 23:59 23:59 Intake Total 1999 1156.98 / 1156.98 Output Total 700 / 700 Balance 1999 456.98 / 456.98 Lab / Micro Data 09/12/25 20:45 09/13/25 06:30 Labs: Laboratory Results - last 24 hr 09/12/25 20:29: POC Glucose 293 H 09/12/25 20:45: WBC 10.5, RBC 4.84, Hgb 15.6, Hct 45.7, MCV 94.4 H, MCH 32.2 H, MCHC 34.1, RDW Std Deviation 43.6, RDW Coeff of [place] 12.5, Plt Count 332, MPV 11.1, Immature Gran % (Auto) 0.400, Neut % (Auto) 85.5 H, Lymph % (Auto) 9.8 L, [place] % (Auto) 4.1, Eos % (Auto) 0.0, Baso % (Auto) 0.2, Absolute Neuts (auto) 9.0 H, Absolute Lymphs (auto) 1.03, Nucleated RBC % 0, Sodium 135, Potassium 4.9, Chloride 93 L, Carbon Dioxide 11.3 L, Anion Gap 31 H, BUN 29 H, Creatinine 1.68 H, Estim Creat Clear Calc 62.09, Est GFR (MDRD) Non-Af 50 L, BUN/Creatinine Ratio 17.4, Glucose 338 H, Calcium 10.0, Phosphorus 6.4 H, Magnesium 2.6 H, Total Bilirubin 0.47, AST 20, ALT 20, Alkaline Phosphatase 105, Total Protein 8.4, Albumin 4.5, Globulin 3.9, Albumin/Globulin Ratio 1.1, Lipase 37, b- Hydroxybutyric mmol/L 8.8 H 09/12/25 21:30: Urine Color Yellow, Urine Clarity Clear, Urine pH 5.0, Ur Specific [place] 1.025, Urine Protein 30 H, Urine Glucose (UA) 1000 H, Urine Ketones 150 A*, Urine Occult Blood 10 H, Urine Nitrite Negative, Urine Bilirubin Negative, Urine Urobilinogen Normal, Ur Leukocyte Esterase Negative, Urine RBC 0-5 SEEN, Urine WBC 0-5 SEEN, Ur Squamous Epith Cells 0 SEEN, Urine Bacteria 0 SEEN, Urine Mucus 0 SEEN 09/12/25 22:03: Sodium 134, Potassium 5.3 H, Chloride 95 L, Carbon Dioxide 11.1 L, Anion Gap 28 H 09/13/25 00:02: POC Glucose 287 H 09/13/25 00:59: POC Glucose 255 H 09/13/25 02:05: Sodium 139, Potassium 4.6, Chloride 103, Carbon Dioxide 12.9 L, Anion Gap 23 H, Phosphorus 2.9, Magnesium 2.3 H 09/13/25 03:03: POC Glucose 208 H 09/13/25 04:04: POC Glucose 202 H 09/13/25 05:04: POC Glucose 180 H 09/13/25 06:03: POC Glucose 175 H 09/13/25 06:30: Sodium 137, Potassium 4.3, Chloride 106, Carbon Dioxide 17.9 L, Anion Gap 13, Phosphorus 2.2 L, Magnesium 2.3 H Micro: Microbiology 09/12/25 23:14 Mucosa - Nasopharyngeal Coronavirus COVID-19 PCR - Final SARS-CoV-2 (COVID 19) 09/12/25 23:14 Mucosa - Nasopharyngeal Respiratory Panel (PCR) - Final ABG Data ABG results: ABG 09/12/25 20:51 Specimen Type KARINA Sample Site Not entered VBG pH 7.24 L VBG pO2 29 VBG HCO3 13 L VBG Total CO2 14 L VBG O2 Sat (Calc) 45 L VBG Base Excess -14 L POC Mix VBG pCO2 Pt Tmp 30.8 L O2 Delivery Device Room Air Radiography Diagnostic Testing: Radiology Impression Abdomen/Pelvis CT 09/12/25 20:33 IMPRESSION: Left lower lobe ill-defined airspace density may reflect aspiration or early stages of pneumonia. No acute intra-abdominal process. Reading Location: [facility] Chest X-Ray 09/12/25 22:58 IMPRESSION: No focal consolidations. Reading Location: [facility] Physical Exam Narrative GENERAL: cooperative but appears ill looking HEENT: Atraumatic; normocephalic EYES; Anicteric, Normal Conjunctiva NECK; supple, normal thyroid, RESPIRATORY: Diminished to auscultation CARDIOVASCULAR: Regular S1 S2, GI: soft, normoactive bowel sounds, : No Renal angle tenderness; EXTREMITIES: No edema, no clubbing, MUSCULOSKELETAL: no muscle wasting NEURO: Awake; no lateralizing signs. SKIN: No Rash PSYCH; Flat affect Assessment & Plan Assessment/Plan (1) DKA (diabetic ketoacidoses): QUALIFIERS: Diabetes mellitus complication detail: without coma D iabetes mellitus type: type 1 Qualified Code(s): E10.10 - Type 1 diabetes mellitus with ketoacidosis without coma (2) COVID-19: (3) Left lower lobe pneumonia: QUALIFIERS: Aspiration pneumonia type: due to gastric secretions Pneumonia type: aspiration pneumonia Qualified Code(s): J69.0 - Pneumonitis due to inhalation of food and vomit (4) POLLO (acute kidney injury): PLAN: Plan Patient is a 44-year-old gentleman with history of diabetes mellitus type 1 presented with nausea vomiting as well as hyperglycemia and assessment of diabetic ketoacidosis made admitted to a monitored bed for subsequent management. Patient tested for COVID-19 on admission 1. Diabetic ketoacidosis ? Patient admitted to the intensive care unit managed with systemic insulin, IV fluids, and Q4 BMP with correction of electrolyte abnormality 2. Diabetes mellitus type 1 ? Patient presented with DKA management as discussed above 3. COVID-19 ? Not requiring oxygen plan is to continue with symptom management 4. Acute kidney injury ? Baseline creatinine 0.9, creatinine on admission was 1.68 patient being rehydrated with monitoring of electrolyte 5. Left lower lobe opacity ? Suspected to be secondary to viral pneumonia with suspected superimposed bacterial pneumonia from COVID. Patient started on ceftriaxone 6. DVT prophylaxis ? Enoxaparin Time critical spent in the patient's overall evaluation,decision-making process, review of diagnostic data, adjustment of management, discussion with other providers, nursing nursing and ancillary staff involved in patient's care documentation, 45 Minutes Charges/Coding Procedures Hospitalists Procedures: 07509 Critical Care 1st Hr
[2025-09-13 08:01] LABS: AST(SGOT) 15 U/L (<=37); Alanine Aminotransfer ALT/SGPT 16 U/L (<=46); Albumin, Serum 3.8 g/dL (3.5-5.0); Alkaline Phosphatase 80 U/L (40-129); BUN 24 mg/dL (4-19); BUN/Creat Ratio 18.0 RATIO (10-20); Calcium,Total 8.6 mg/dL (7.6-11.0); Estimated Creatinine Clearance 77.27 ml/min (50-250); Globulin 3.0 g/dL (2.2-4.2); Glucose 209 mg/dL (70-99)
[2025-09-13] MEDS: Potassium Chloride 10mEq/100mL 10 MEQ/100 ML IV.SOLN. 100 MEQ IV BOLUS ×2 (09:21→10:43)
--- NOTE | 2025-09-13 09:51 | CASEMGMT ---
PETER IVY Assessment: Face to Face with pt for initial transition planning/care coordination assessment. RN CATA introduced self and role at [facility], pt voices understanding and consents to assessment. Pt is A&O x4 and answers all questions appropriately at this time. Care providers, pharmacy, and demographics verified/updated. Strata: 2 Admitting Dx: DKA PCP: [facility] Specialists: [employer] through [place] Preferred Pharmacy: [facility] Insurance: [place] Prescription Benefit: yes LNOK: Alfonso, Father Living Arrangements: Pt lives with 15 year old daughter in a 1 level home with 3 steps to enter in. ADLs: Pt reports I at baseline with ADLs and IADLs. Transportation: Pt drives self and denies concerns with transportation. DME: Pt has Dexcom, denies needing diabetic supplies at this time. HHC/SNF: Denies Hx of Pt states no concerns with going home at time of dc. Pt states no further concerns/needs. CM to follow. Advised pt to ask CM if any further question/concerns/needs arise, voices understanding. Pt Goal: Home Plan: Home, follow for safe DC plan. Aida GREEN CM
[2025-09-13 11:45] LABS: Anion Gap 11 (5-15); Carbon Dioxide 19.1 mmol/L (21.0-32.0); Chloride 108 mmol/L (98-108); Potassium 4.0 mmol/L (3.3-5.1)
[2025-09-13] MEDS: Insulin Glargine-YFGN 100 UNIT/ML Pen 25 UNIT SC (13:57)
[2025-09-14] VITALS (11 sets, daily range): BP systolic 112–150; BP diastolic 65–93; PULSE 75–86; RESP 11–22; TEMP 36.6–36.7; O2SAT 92–95; BMI 26.4
[2025-09-14 04:35] LABS: Hematocrit 38.3 % (40-54); Hemoglobin 12.9 g/dL (13.0-16.5); Immature Granulocytes Count 0.030 X10^3/uL (0.0-0.0); Mean Corp Hgb Conc 33.7 g/dL (32-36); Mean Corpuscular Volume 93.9 fL (80-94); Mean Platelet Vol. 10.5 fl (6.2-12.0); NRBC Flagged by Analyzer 0 % (0-5); Platelet Count 250 K/mm3 (150-450); RBC Distribution Width CV 12.9 % (11.6-14.6); RBC Distribution Width SD 44.2 fl (35.1-43.9); Red Blood Count 4.08 M/mm3 (4.6-6.2); White Blood Count 11.3 K/mm3 (4.4-11.0)
[2025-09-14 05:11] LABS: Anion Gap 11 (5-15); BUN 14 mg/dL (4-19); BUN/Creat Ratio 12.4 RATIO (10-20); Calcium,Total 8.9 mg/dL (7.6-11.0); Carbon Dioxide 21.4 mmol/L (21.0-32.0); Chloride 107 mmol/L (98-108); Estimated Creatinine Clearance 91.50 ml/min (50-250); Glucose 104 mg/dL (70-99); Magnesium 2.4 mg/dL (1.5-2.2); Potassium 3.8 mmol/L (3.3-5.1)
--- NOTE | 2025-09-14 08:07 | PN.HOSP_ITS ---
Reason for Visit Chief Complaint: Vomiting Subjective Subjective Patient seen DKA resolved, plans for patient to be discharged home Objective Data Objective Data Vital Signs: Vital Signs Temp Pulse Resp BP Pulse Ox O2 Del Method 98.1 F 82 12 150/93 H 92 Room Air 09/14/25 04:00 09/14/25 07:00 09/14/25 07:00 09/14/25 07:00 09/14/25 07:00 09/14/25 07:00 Oxygen Delivery Method Room Air Weight: 90.9 kg Body Mass Index (BMI) 26.4 Intake & Output: Intake and Output for Last 24 Hours 09/12/25 09/13/25 09/14/25 23:59 23:59 23:59 Intake Total 1999 3779.26 / 3779.26 172.75 / 172.75 Output Total 1725 / 1725 Balance 1999 2054.26 / 2054.26 172.75 / 172.75 Lab / Micro Data 09/14/25 04:24 09/14/25 04:24 Labs: Laboratory Results - last 24 hr 09/13/25 02:00: POC Glucose 202 H 09/13/25 07:57: POC Glucose 171 H 09/13/25 09:18: POC Glucose 123 H 09/13/25 10:40: Sodium 138, Potassium 4.0, Chloride 108, Carbon Dioxide 19.1 L, Anion Gap 11, Phosphorus 2.0 L 09/13/25 10:41: POC Glucose 118 H 09/13/25 12:05: POC Glucose 92 09/13/25 15:40: POC Glucose 109 H 09/13/25 20:47: POC Glucose 224 H 09/14/25 01:07: POC Glucose 134 H 09/14/25 04:08: POC Glucose 102 09/14/25 04:24: WBC 11.3 H, RBC 4.08 L, Hgb 12.9 L, Hct 38.3 L, MCV 93.9, MCH 31.6, MCHC 33.7, RDW Std Deviation 44.2 H, RDW Coeff of [place] 12.9, Plt Count 250, MPV 10.5, Immature Gran % (Auto) 0.300, Neut % (Auto) 74.3 H, Lymph % (Auto) 18.3 L, [place] % (Auto) 6.6, Eos % (Auto) 0.2, Baso % (Auto) 0.3, Absolute Neuts (auto) 8.4 H, Absolute Lymphs (auto) 2.06, Nucleated RBC % 0, Sodium 139, Potassium 3.8, Chloride 107, Carbon Dioxide 21.4, Anion Gap 11, BUN 14, Creatinine 1.14, Estim Creat Clear Calc 91.50, Est GFR (MDRD) Non-Af 80, BUN/Creatinine Ratio 12.4, Glucose 104 H, Calcium 8.9, Magnesium 2.4 H Micro: Microbiology 09/12/25 23:14 Mucosa - Nasopharyngeal Coronavirus COVID-19 PCR - Final SARS-CoV-2 (COVID 19) 09/12/25 23:14 Mucosa - Nasopharyngeal Respiratory Panel (PCR) - Final Physical Exam Narrative GENERAL: cooperative HEENT: Atraumatic; normocephalic EYES; Anicteric, Normal Conjunctiva NECK; supple, normal thyroid, RESPIRATORY: Diminished to auscultation CARDIOVASCULAR: Regular S1 S2, GI: soft, normoactive bowel sounds, : No Renal angle tenderness; EXTREMITIES: No edema, no clubbing, MUSCULOSKELETAL: no muscle wasting NEURO: Awake; no lateralizing signs. SKIN: No Rash PSYCH; Flat affect Assessment & Plan Assessment/Plan (1) DKA (diabetic ketoacidoses): QUALIFIERS: Diabetes mellitus complication detail: without coma D iabetes mellitus type: type 1 Qualified Code(s): E10.10 - Type 1 diabetes mellitus with ketoacidosis without coma (2) COVID-19: (3) Left lower lobe pneumonia: QUALIFIERS: Aspiration pneumonia type: due to gastric secretions Pneumonia type: aspiration pneumonia Qualified Code(s): J69.0 - Pneumonitis due to inhalation of food and vomit (4) POLLO (acute kidney injury): PLAN: Plan Patient is a 44-year-old gentleman with history of diabetes mellitus type 1 presented with nausea vomiting as well as hyperglycemia and assessment of diabetic ketoacidosis made admitted to a monitored bed for subsequent management. Patient tested for COVID-19 on admission 1. Diabetic ketoacidosis ? Patient admitted to the intensive care unit managed with systemic insulin, IV fluids, and Q4 BMP with correction of electrolyte abnormality ? Patient DKA resolved resume home insulin regimen 2. Diabetes mellitus type 1 ? Patient presented with DKA management as discussed above 3. COVID-19 ? Not requiring oxygen plan is to continue with symptom management 4. Acute kidney injury ? Baseline creatinine 0.9, creatinine on admission was 1.68 patient being rehydrated with monitoring of electrolyte 5. Left lower lobe opacity ? Suspected to be secondary to viral pneumonia with suspected superimposed bacterial pneumonia from COVID. Patient started on ceftriaxone ? Plan is for patient to be discharged home on cefdinir 6. DVT prophylaxis ? Enoxaparin Time critical spent in the patient's overall evaluation,decision-making process, review of diagnostic data, adjustment of management, discussion with other providers, nursing nursing and ancillary staff involved in patient's care documentation, 35 Minutes Charges/Coding Visit Charges Inpatient E&M: 21742 Subs Hosp L2
--- NOTE | 2025-09-14 09:53 | PCM.DC.SUM ---
Providers Date of Admission: 09/12/25 Date of Discharge: 09/14/25 Primary Care Physician: [facility] Reason For Visit: DKA Diagnosis Discharge Diagnosis (1) DKA (diabetic ketoacidoses): Status: Acute Code(s): E11.10 - Type 2 diabetes mellitus with ketoacidosis without coma Qualifiers: Diabetes mellitus type: type 1 Diabetes mellitus complication detail: without coma Qualified Code(s): E10.10 - Type 1 diabetes mellitus with ketoacidosis without coma (2) COVID-19: Status: Acute Code(s): U07.1 - COVID-19 (3) Left lower lobe pneumonia: Status: Acute Code(s): J18.9 - Pneumonia, unspecified organism Qualifiers: Pneumonia type: aspiration pneumonia Aspiration pneumonia type: due to gastric secretions Qualified Code(s): J69.0 - Pneumonitis due to inhalation of food and vomit (4) POLLO (acute kidney injury): Status: Acute Code(s): N17.9 - Acute kidney failure, unspecified Plan Patient is a 44-year-old gentleman with history of diabetes mellitus type 1 presented with nausea vomiting as well as hyperglycemia and assessment of diabetic ketoacidosis made admitted to a monitored bed for subsequent management. Patient tested for COVID-19 on admission 1. Diabetic ketoacidosis ? Patient admitted to the intensive care unit managed with systemic insulin, IV fluids, and Q4 BMP with correction of electrolyte abnormality ? Patient DKA resolved resume home insulin regimen 2. Diabetes mellitus type 1 ? Patient presented with DKA management as discussed above 3. COVID-19 ? Not requiring oxygen plan is to continue with symptom management 4. Acute kidney injury ? Baseline creatinine 0.9, creatinine on admission was 1.68 patient being rehydrated with monitoring of electrolyte 5. Left lower lobe opacity ? Suspected to be secondary to viral pneumonia with suspected superimposed bacterial pneumonia from COVID. Patient started on ceftriaxone ? Plan is for patient to be discharged home on cefdinir 6. DVT prophylaxis ? Enoxaparin Time critical spent in the patient's overall evaluation,decision-making process, review of diagnostic data, adjustment of management, discussion with other providers, nursing nursing and ancillary staff involved in patient's care documentation, 35 Minutes Medications at Discharge Home Medications insulin glargine 100 unit/mL (3 mL) subcutaneous pen 25 unit subcut DAILY DIABETES 06/12/21 insulin lispro 100 unit/mL subcutaneous pen 9 unit subcut TIDCM Diabetes 09/12/25 acetaminophen 325 mg tablet 650 mg (2 x 325 mg) PO Q6H PRN PRN Pain 1-10 Or Fever>100.7 #0 tabs 09/14/25 cefdinir 300 mg capsule 300 mg PO BID #10 caps 09/14/25 guaifenesin 600 mg tablet, extended release 12 hr (Mucinex) 1,200 mg (2 x 600 mg) PO BID #28 tabs 09/14/25 pantoprazole 40 mg tablet,delayed release 40 mg PO DAILY #30 tabs 09/14/25 potassium, sodium phosphates 280 mg-160 mg-250 mg oral powder packet 1 packet PO BID #30 ea 09/14/25 Physical Exam Narrative GENERAL: cooperative HEENT: Atraumatic; normocephalic EYES; Anicteric, Normal Conjunctiva NECK; supple, normal thyroid, RESPIRATORY: Diminished to auscultation CARDIOVASCULAR: Regular S1 S2, GI: soft, normoactive bowel sounds, : No Renal angle tenderness; EXTREMITIES: No edema, no clubbing, MUSCULOSKELETAL: no muscle wasting NEURO: Awake; no lateralizing signs. SKIN: No Rash PSYCH; Flat affect Weight / BMI Weight Weight: 90.9 kg Body Mass Index (BMI) 26.4 ABG / Lab / Microbiology Data 09/14/25 04:24 09/14/25 04:24 Laboratory: Laboratory Results - last 24 hr 09/13/25 10:40: Sodium 138, Potassium 4.0, Chloride 108, Carbon Dioxide 19.1 L, Anion Gap 11, Phosphorus 2.0 L 09/13/25 10:41: POC Glucose 118 H 09/13/25 12:05: POC Glucose 92 09/13/25 15:40: POC Glucose 109 H 09/13/25 20:47: POC Glucose 224 H 09/14/25 01:07: POC Glucose 134 H 09/14/25 04:08: POC Glucose 102 09/14/25 04:24: WBC 11.3 H, RBC 4.08 L, Hgb 12.9 L, Hct 38.3 L, MCV 93.9, MCH 31.6, MCHC 33.7, RDW Std Deviation 44.2 H, RDW Coeff of [place] 12.9, Plt Count 250, MPV 10.5, Immature Gran % (Auto) 0.300, Neut % (Auto) 74.3 H, Lymph % (Auto) 18.3 L, [place] % (Auto) 6.6, Eos % (Auto) 0.2, Baso % (Auto) 0.3, Absolute Neuts (auto) 8.4 H, Absolute Lymphs (auto) 2.06, Nucleated RBC % 0, Sodium 139, Potassium 3.8, Chloride 107, Carbon Dioxide 21.4, Anion Gap 11, BUN 14, Creatinine 1.14, Estim Creat Clear Calc 91.50, Est GFR (MDRD) Non-Af 80, BUN/Creatinine Ratio 12.4, Glucose 104 H, Calcium 8.9, Magnesium 2.4 H 09/14/25 08:08: POC Glucose 118 H Microbiology: Microbiology 09/12/25 23:14 Mucosa - Nasopharyngeal Coronavirus COVID-19 PCR - Final SARS-CoV-2 (COVID 19) 09/12/25 23:14 Mucosa - Nasopharyngeal Respiratory Panel (PCR) - Final D/C Instructions Discharge Activity: Return to Normal Activity Call your doctor if you observe: Fever of 101 or Higher, Shortness of breath, Fainting spells and Chest pain DC O2, CPAP, BIPAP Needs Home O2 Discharge instructions: No Meaningful Use Info Meaningful Use Meaningful Use Diagnoses (Choose all that apply): None applicable Discharge Plan Admission Admit Date/Time: 09/12/25 22:48 Attending Provider: Koby Gerber Primary Care Provider: [facility] Consulting Providers: Tita Ybarra Discharge Orders/Prescriptions Prescriptions: New potassium, sodium phosphates 280-160-250 mg Powder In Packet 1 packet PO BID Qty: 30 0RF acetaminophen 325 mg Tablet 650 mg PO Q6H PRN PRN (Reason: Pain 1-10 Or Fever>100.7) Qty: 0 0RF pantoprazole 40 mg Tablet,Delayed Release (Dr/Ec) 40 mg PO DAILY Qty: 30 0RF cefdinir 300 mg capsule 300 mg PO BID Qty: 10 0RF guaifenesin [Mucinex] 600 mg tablet extended release 12hr 1,200 mg PO BID Qty: 28 0RF Continued insulin glargine 100 unit/mL (3 mL) insulin pen 25 unit subcut DAILY insulin lispro 100 unit/mL insulin pen 9 unit subcut TIDCM Referrals / Follow Up: [facility] [Primary Care Provider, None] - Within 2 Weeks Disposition Disposition (needs filled in before D/C Order can be placed): Home, Self Care Charges/Coding Visit Charges Inpatient E&M: 15302 Disch Hosp >30min
[2025-09-14] MEDS: Na Biphos/Potassium Phosphate PACKET 1 PACKET PO (10:13)
[2025-09-14] MEDS: Insulin Glargine-YFGN 100 UNIT/ML Pen 25 UNIT SC (10:14)
== END 2025-09-14 10:30 | disposition home or self-care (01) | DRG 637 ==
LOC: ED 22:31 → ICU 23:07
PROVIDERS: Admitting Provider Internal Medicine; Emergency Provider Emergency Medicine; Visit Provider Internal Medicine
DX: E10.10 Type 1 diabetes mellitus with ketoacidosis without coma (principal); U07.1 COVID-19; J69.0 Pneumonitis due to inhalation of food and vomit; J15.9 Unspecified bacterial pneumonia; J12.82 Pneumonia due to coronavirus disease 2019; N17.9 Acute kidney failure, unspecified; Z79.4 Long term (current) use of insulin; R91.8 Other nonspecific abnormal finding of lung field
CPT/HCPCS: 71045; 74177; 80048; 80051; 80053; 81001; 82010; 82803; 82962; 83690; 83735; 84100; 85025; 87633; 87635; 93005; 99285; Q9967; A4216; J0696; J2405

== ENCOUNTER 2025-09-15 09:41 | Emergency (ER) | payer OTHER, SELFPAY ==
[2025-09-15 09:42] VITALS: BP 153/89; PULSE 75; RESP 16; TEMP 35.7; O2SAT 99
--- NOTE | 2025-09-15 09:48 | EX.ED.DYSGE1 ---
HPI History of Present Illness Chief Complaint: General Illness Narrative Narrative: Patient is a 44-year-old male presenting to the emergency department for generalized illness. Patient was just discharged yesterday after being admitted for DKA and COVID-pneumonia. Patient has a past medical history of type 1 diabetes, peptic ulcer. Patient was discharged with cefdinir for his left lower lobe pneumonia. Patient states that when he got home from the hospital yesterday he was nauseous and had multiple episodes of nonbloody nonbilious vomiting. He states that he could not keep any food or fluids down. He states that he was not discharged with Zofran. He called his doctor at the [place] who states they were unable to prescribe this and sent him here for evaluation. He endorses subjective fever. Denies chills, sore throat, chest pain, shortness of breath, abdominal pain. Endorses nausea, reports that the last episode of vomiting was a few hours ago. Denies any diarrhea, dysuria or hematuria. Reports that his glucose was in the 200s this morning and he gave himself 6 units of insulin prior to arrival. States he is actually feeling better now. [facility] Medical History URI (upper respiratory infection) Influenza A COVID-19 Contact with and (suspected) exposure to other viral communicable diseases Mass of left breast Breast mass Diabetes insipidus Home Medications ?Medication ?Instructions ?Recorded ?Last Taken ?Type insulin glargine 100 unit/mL (3 25 unit subcut DAILY DIABETES 06/12/21 Unknown History mL) subcutaneous pen insulin lispro 100 unit/mL 9 unit subcut TIDCM Diabetes 09/12/25 Unknown History subcutaneous pen acetaminophen 325 mg tablet 650 mg (2 x 325 mg) PO Q6H PRN PRN 09/14/25 Unknown Rx Pain 1-10 Or Fever>100.7 #0 tabs cefdinir 300 mg capsule 300 mg PO BID #10 caps 09/14/25 Unknown Rx guaifenesin 600 mg tablet, 1,200 mg (2 x 600 mg) PO BID #28 09/14/25 Unknown Rx extended release 12 hr (Mucinex) tabs pantoprazole 40 mg tablet,delayed 40 mg PO DAILY #30 tabs 09/14/25 Unknown Rx release potassium, sodium phosphates 280 1 packet PO BID #30 ea 09/14/25 Unknown Rx mg-160 mg-250 mg oral powder packet ondansetron 4 mg disintegrating 4 mg PO Q8H PRN PRN Nausea #10 tabs 09/15/25 Unknown Rx tablet Allergy/AdvReac Type Severity Reaction Status Date / Time dextromethorphan AdvReac Nausea Verified 09/15/25 09:42 Family History Father Cancer prostate Surgical History History of colonoscopy (~05/2019) History of tonsillectomy (~1984) History of hernia repair (~2007) Social History Smoking Status: Never smoker alcohol intake: current alcohol intake frequency: a few times a week Alcohol type: hard liquor ROS ROS ED ROS Narrative see HPI EXAM Physical Exam Narrative Exam Narrative: Vital signs: Reviewed General: Alert and oriented x 3. No acute distress. Well-appearing, nontoxic HEENT: Head is normocephalic and atraumatic, sinuses nontender, pupils equal round and reactive. Nares are patent. Oropharynx and throat exams normal. Dry mucous membranes. Neck: Supple without lymphadenopathy nontender Cardiovascular: Regular rate and rhythm, no murmurs. No rubs or gallops. Normal S1 and S2 Respiratory: Clear to auscultation bilaterally. No wheezes, rales, rhonchi Abdominal: Soft and nontender. Normal bowel sounds. No guarding or rebound. Nonsurgical abdomen Extremities: No tenderness. No bruising. Normal range of motion. Normal sensation. Skin: No rash or redness. The rest of the physical exam is unremarkable Const Vital Signs: 09/15/25 09:42 09/15/25 10:28 09/15/25 10:44 Temperature 96.3 F L 98.3 F Temperature Source Temporal Oral Pulse Rate 75 75 Respiratory Rate 16 19 H Respiratory Effort Normal Non-Labored Respiratory Pattern Normal Blood Pressure 153/89 H 129/90 H Blood Pressure Mean 110 103 Pulse Ox 99 100 Oxygen Delivery Method Room Air Room Air 09/15/25 11:00 09/15/25 11:41 09/15/25 12:52 Temperature 98.3 F 98.9 F Temperature Source Oral Pulse Rate 71 80 78 Respiratory Rate 17 18 18 Respiratory Effort Respiratory Pattern Blood Pressure 135/89 H 133/78 H 148/71 H Blood Pressure Mean 104 96 96 Pulse Ox 98 99 99 Oxygen Delivery Method Room Air MDM MDM MDM Narrative Medical decision making narrative: Patient is a 44-year-old male presenting to the emergency department after being discharged yesterday with complaints of feeling unwell. Patient was seen and examined. Vitals are stable. Patient resting in bed comfortably no acute distress. Well-appearing, nontoxic. Patient states his main concern was that he was not discharged with Zofran and he had nausea and vomiting last night that was uncontrolled. States this morning he did not take his antibiotic that he was discharged with for his pneumonia due to concern of not keeping it down. Will obtain laboratory studies to evaluate for any evidence of DKA or electrolyte imbalance. Will obtain EKG to rule out ACS however I think this is less likely given the vague symptoms and no chest pain or shortness of breath. Will obtain a chest x-ray to evaluate for any worsening pneumonia. Will give fluids and Zofran for symptomatic control. EKG shows normal sinus rhythm with no ischemic changes. Rate of 85. No dysrhythmia. CBC with no leukocytosis and a normal hemoglobin. BMP with no significant abnormalities, hyperglycemia of 173 however normal anion gap and bicarb not consistent with DKA. Beta hydroxybutyrate was very mildly elevated at 1.1. Urinalysis with glucose and small amount of ketones consistent with his diabetes. No evidence of urinary tract infection. Chest x-ray reviewed myself, no opacities, pneumothorax or wide mediastinum. Radiology read in agreement. Patient is feeling much better after the fluids and Zofran. He was able to tolerate p.o. The results were discussed with him. He will be prescribed Zofran for home. Patient discharged from the Emergency Department. I do not feel that the patient's evaluation reveals any acute reason for admission at this time. I instructed them to either follow-up with their primary care physician or promptly return to the Emergency Department for reevaluation should symptoms worsen or new symptoms develop. I explained what symptoms would indicate the need to return to the emergency department. Shared decision making was used. The patient voiced understanding of the treatment plan and is agreeable with it. Clinical impression Nausea and vomiting Hyperglycemia History & Record Review Discussion w/independent historian: Patient Additional record(s) reviewed:: Prior inpatient record, Prior ED visit and Prior labs Lab Data Attestation: I reviewed the patient's lab results. Labs: Laboratory Results - last 24 hr 09/15/25 09/15/25 10:10 11:05 WBC 8.8 RBC 4.56 L Hgb 14.5 Hct 42.2 MCV 92.5 MCH 31.8 MCHC 34.4 RDW Std Deviation 41.6 RDW Coeff of [place] 12.2 Plt Count 282 MPV 10.7 Immature Gran % (Auto) 0.300 Neut % (Auto) 87.8 H Lymph % (Auto) 8.6 L [place] % (Auto) 3.1 Eos % (Auto) 0.1 Baso % (Auto) 0.1 Absolute Neuts (auto) 7.7 Absolute Lymphs (auto) 0.75 L Nucleated RBC % 0 Sodium 138 Potassium 4.0 Chloride 99 Carbon Dioxide 27.7 Anion Gap 12 BUN 9 Creatinine 0.96 Est GFR (MDRD) Non-Af 98 BUN/Creatinine Ratio 8.9 L Glucose 173 H Calcium 9.5 b-Hydroxybutyric mmol/L 1.1 H Urine Color Yellow Urine Clarity Clear Urine pH 6.0 Ur Specific [place] 1.015 Urine Protein 100 H Urine Glucose (UA) 1000 H Urine Ketones 50 H Urine Occult Blood 10 H Urine Nitrite Negative Urine Bilirubin Negative Urine Urobilinogen Normal Ur Leukocyte Esterase Negative Urine RBC 0 SEEN Urine WBC 0 SEEN Ur Squamous Epith Cells 0 SEEN Urine Bacteria 0 SEEN Urine Mucus 0 SEEN Radiography Chest X-Ray - ED: 2 View, Read by ED Physician, Normal, No Acute Disease and No Infiltrates Diagnostic Testing: Clinical Impression(s) from Imaging Studies Chest X-Ray 09/15/25 10:35 IMPRESSION: NO ACUTE FINDINGS. Reading Location: [place] [id number] Discharge Plan Triage Chief Complaint: General Illness ED Provider: Devika Lee Dx/Rx/DC Orders Clinical Impression: Hyperglycemia, Nausea and vomiting Instructions: Diabetes: Sick-Day Plan, ED Vomiting (Adult) Prescriptions: New ondansetron 4 mg tablet,disintegrating 4 mg PO Q8H PRN PRN (Reason: Nausea) Qty: 10 0RF No Action insulin glargine 100 unit/mL (3 mL) insulin pen 25 unit subcut DAILY insulin lispro 100 unit/mL insulin pen 9 unit subcut TIDCM potassium, sodium phosphates 280-160-250 mg Powder In Packet 1 packet PO BID Qty: 30 0RF acetaminophen 325 mg Tablet 650 mg PO Q6H PRN PRN (Reason: Pain 1-10 Or Fever>100.7) Qty: 0 0RF pantoprazole 40 mg Tablet,Delayed Release (Dr/Ec) 40 mg PO DAILY Qty: 30 0RF cefdinir 300 mg capsule 300 mg PO BID Qty: 10 0RF guaifenesin [Mucinex] 600 mg tablet extended release 12hr 1,200 mg PO BID Qty: 28 0RF [facility] Referrals: [facility] [Primary Care Provider, None] - As soon as possible Activity Restrictions/Additional Instructions: Take the Zofran every 8 hours for nausea and vomiting. Your evaluation in the Emergency Department did not reveal any acute reason for admission. However, I want to emphasize that you may be early in the course of a disease process or illness even if it is not present. For this reason you should follow-up within 24 hours for reevaluation with either your primary care physician or if necessary back here in the Emergency Department. You should return to the Emergency Department immediately if your symptoms worsen or new symptoms develop. Print Language: Icelandic Disposition Disposition: Home, Self Care Discharge Date/Time: 09/15/25 12:53
--- NOTE | 2025-09-15 10:01 | EKG12_ITS ---
Test Reason : Blood Pressure : */* mmHG Vent. Rate : 85 BPM Atrial Rate : 85 BPM P-R Int : 164 ms QRS Dur : 78 ms QT Int : 384 ms P-R-T Axes : 42 18 39 degrees QTcB Int : 456 ms Normal sinus rhythm Normal ECG Confirmed by SALUD PERRY, CORRINE ([id number]), editorial assistant MILTON MERAZ ([id number]) on 09/17/2025 9:00:26 AM Referred By: Confirmed By: CORRINE BRANNON MD
[2025-09-15 10:23] LABS: Hematocrit 42.2 % (40-54); Hemoglobin 14.5 g/dL (13.0-16.5); Immature Granulocytes Count 0.030 X10^3/uL (0.0-0.0); Mean Corp Hgb Conc 34.4 g/dL (32-36); Mean Corpuscular Volume 92.5 fL (80-94); Mean Platelet Vol. 10.7 fl (6.2-12.0); NRBC Flagged by Analyzer 0 % (0-5); Platelet Count 282 K/mm3 (150-450); RBC Distribution Width CV 12.2 % (11.6-14.6); RBC Distribution Width SD 41.6 fl (35.1-43.9); Red Blood Count 4.56 M/mm3 (4.6-6.2); White Blood Count 8.8 K/mm3 (4.4-11.0)
[2025-09-15] MEDS: 0.9% Normal Saline (1000mL) 1,000 ML 1000 ML IV (10:23)
--- NOTE | 2025-09-15 10:35 | RAD_ITS ---
PROCEDURE: CHEST PA AND LATERAL 09/15/2025 REASON FOR EXAM: FEELS UNWELL, RECENT PNA LLL TECHNIQUE: Procedure Code: RADCXR Modality: DX Procedure: CHEST PA AND LATERAL COMPARISON: September 12, 2025. FINDINGS: Hardware: EKG electrodes are seen. Heart: The heart size is normal. Mediastinum: The mediastinal contour is unremarkable. Lungs: The lungs are clear. Bones: Unremarkable RAD/Chest PA and Lateral IMPRESSION: NO ACUTE FINDINGS. Reading Location: [facility]
[2025-09-15 10:41] LABS: BETA-HYDROXYBUTYRATE 1.1 mmol/L (0.0-0.3)
[2025-09-15 10:44] VITALS: BP 129/90; PULSE 75; RESP 19; TEMP 36.8; O2SAT 100
[2025-09-15 10:56] LABS: Anion Gap 12 (5-15); BUN 9 mg/dL (4-19); BUN/Creat Ratio 8.9 RATIO (10-20); Calcium,Total 9.5 mg/dL (7.6-11.0); Carbon Dioxide 27.7 mmol/L (21.0-32.0); Chloride 99 mmol/L (98-108); Glucose 173 mg/dL (70-99); Potassium 4.0 mmol/L (3.3-5.1)
[2025-09-15 11:00] VITALS: BP 135/89; PULSE 71; RESP 17; TEMP 36.8; O2SAT 98
[2025-09-15 11:15] LABS: Mucous, Urine 0 SEEN /hpf (<or=2+); Red Blood Cells-Urine 0 SEEN /hpf (0-5); Squamous Epithelial Cells - UA 0 SEEN /hpf (0-5)
[2025-09-15 11:17] LABS: Color, Urine Yellow (Yellow); Glucose, Dipstick 1000 mg/dl (Normal); Ketone-Dipstick 50 mg/dl (Negative); Leukocyte Esterase-Dipstick Negative /ul (Negative); Nitrite-Dipstick Negative (Negative); Occult Blood-Urine 10 /ul (Negative); Protein-Dipstick 100 mg/dl (Negative); Specific Gravity, Urine 1.015 (1.002-1.030); Urine Bilirubin Dipstick Negative (Negative)
[2025-09-15 11:41] VITALS: BP 133/78; PULSE 80; RESP 18; O2SAT 99
[2025-09-15 12:52] VITALS: BP 148/71; PULSE 78; RESP 18; TEMP 37.2; O2SAT 99
== END 2025-09-15 12:53 | disposition home or self-care (01) ==
PROVIDERS: Emergency Provider Student in an Organized Health Care Education/Training Program; Visit Provider Student in an Organized Health Care Education/Training Program
DX: E10.65 Type 1 diabetes mellitus with hyperglycemia (principal); Z79.4 Long term (current) use of insulin; R11.2 Nausea with vomiting, unspecified; Z87.11 Personal history of peptic ulcer disease
CPT/HCPCS: 71046; 80048; 81001; 82010; 85025; 93005; 96361; 96374; 99284; A4216; J2405